=== PATIENT | female | born 1995 | race Caucasian/White ===

== ENCOUNTER → 2020-09-10 13:13 | Outpatient (CLI) | payer OTHER, SELFPAY ==
--- NOTE | ~2020-09-10 | US_ITS ---
EXAMINATION: US OB <= 14 wk fetus add gest, US OB <=14 wk fetus w TV EXAM DATE: 09/10/2020 13:58 INDICATION: For dating. 1st trimester. TECHNIQUE: Pelvic twin obstetrical transabdominal sonogram was performed by a technologist. There a re multiple grayscale and Doppler images available for interpretation. Comparison is made to prior ex amination from 09/10/2020. FINDINGS: The uterus measures 8.2 x 4.8 x 6.6 cm. There are twin monochorionic gestations. There appe ar to be separate amniotic sacs. There is only one yolk sac identified measuring 6 mm in diameter. Fetus A on maternal right side with crown-rump length of 1.2 cm corresponding to estimated gestationa l age 7 weeks 2 days, YUMIKO 04/27/2021, and has a heart rate 159 bpm. Fetus B, on maternal left side has a crown-rump length of 1.4 cm corresponding to estimated gestational age 7 weeks 5 days with an YUMIKO of 04/24/2021, and a heart rate of 151 bpm. There is no subchorionic hemorrhage. Both ovaries were ro ntified and are morphologically normal. IMPRESSION: Twin live monochorionic and probably diamniotic gestations. Reviewed, dictated and finalized at location A. IMPRESSION: Twin live monochorionic and probably diamniotic gestations.
== END ==
PROVIDERS: Visit Provider Obstetrics & Gynecology
DX: O30.039 Twin pregnancy, monochorionic/diamniotic, unspecified trimester (principal); Z3A.00 Weeks of gestation of pregnancy not specified
CPT/HCPCS: 76801; 76802; 76817

== ENCOUNTER 2021-02-15 12:29 | Observation (INO) | payer OTHER, SELFPAY ==
--- NOTE | ~2021-02-15 | US_ITS ---
EXAMINATION: US venous doppler [facility] DATE: 02/15/2021 13:37 INDICATION: Right lower limb pain and swelling TECHNIQUE: Grayscale ultrasound images without and with compression and Doppler ultrasound images of the bilateral lower extremity veins were obtained. COMPARISON: None. FINDINGS: The visualized portions of right common femoral vein, profunda (deep) femoral vein, femoral vein, pop liteal vein, posterior tibial veins, peroneal veins, gastrocnemius vein and greater saphenous vein ou tflow are patent. The visualized portions of left common femoral vein, profunda femoral vein, femoral vein, popliteal v ein, posterior tibial veins, peroneal veins, gastrocnemius vein and greater saphenous vein outflow ar e patent. IMPRESSION: 1. No deep venous thrombosis in either lower limb. Reviewed, dictated and finalized at location A.
--- NOTE | 2021-02-15 12:50 | PC.NURSE ---
Left calf measurement 16 5/8 inches; Left ankle 9 3/4 inches Right calf measurement 17 1/4 inches; Right ankle 10 inches.
[2021-02-15 12:55] VITALS: RESP 16; TEMP 36.6
[2021-02-15 12:56] VITALS: BP 119/69; PULSE 95
[2021-02-15 13:00] VITALS: BP 123/69; PULSE 90
[2021-02-15 13:08] VITALS: BMI 40.5
--- NOTE | 2021-02-15 13:08 | OBADM ---
This patient, Angy Britt, admitted to the OB room 116 for observation for c/o right leg swelling. Dr. Gandara was on unit when pt arrived and orders received. Patient/family oriented to hospital policies and general routines including ID bracelet, bed and alarms, visiting hours, pain management, procedures, bathroom and other care routines, personal items, smoking policy, room service/diet, and visiting hours. Patient/Family are encouraged to report perceived risks to care and to ask questions if they do not understand what they are told or what they should do.
--- NOTE | 2021-02-15 13:55 | PC.NURSE ---
Dr. Gandara informed pt had increased edema in her legs while she was at work this morning after standing for 2 - 2 1/2 hrs. Pt sat down for 3 hours but didn't feel like the swelling was any less. Pt states it was worse in her right leg. No edema present on admission and pt states her legs look much better now. informed doppler studies are negative for DVT. Both twins are reactive on NST. Orders for discharge received.
--- NOTE | 2021-03-08 19:25 | PM.OBTRLD ---
OB - Triage/Final Diagnosis Visit Information Comments/Additional reasons for admission: I have assessed the risk for this patient, Angy Britt, and determined that she would benefit from observation care. Final Diagnosis (1) Lower extremity edema: Code(s): R60.0 - Localized edema Status: Acute
== END 2021-02-15 14:21 | disposition home or self-care (01) ==
PROVIDERS: Admitting Provider Obstetrics & Gynecology; Visit Provider Obstetrics & Gynecology
DX: O26.893 Other specified pregnancy related conditions, third trimester (principal); R60.0 Localized edema; Z3A.30 30 weeks gestation of pregnancy
CPT/HCPCS: 93970; G0378; G0379

== ENCOUNTER 2021-02-26 11:10 | Outpatient (CLI) | payer OTHER, SELFPAY ==
[2021-02-26 11:40] VITALS: BP 121/72; PULSE 84
[2021-02-26 11:46] VITALS: BP 118/66; PULSE 89
[2021-02-26 12:01] VITALS: BP 111/69; PULSE 83
--- NOTE | 2021-02-26 12:11 | PC.NURSE ---
Dr. Gandara informed of this twin gestation with GDM pt's arrival with c/o headache x's 2 days- non-relieved with Fioricet. Pt checked her BP at home and it was 150's/90. Informed BP's here are normal. Order received to obtain baseline labs.
[2021-02-26 12:16] VITALS: BP 114/69; PULSE 93
[2021-02-26 12:24] VITALS: BP 114/69; PULSE 93
[2021-02-26 12:47] LABS: Basophils Absolute Auto 0.1 K/mm3 (0.0-0.1); Basophils Percent Auto 0.5 % (0.2-1.2); Eosinophils Absolute Auto 0.4 K/mm3 (0-0.3); Eosinophils Percent Auto 3.7 % (0-4.4); Hemoglobin 11.7 g/dL (12.0-15.0); Immature Granulocyte Absolute 0.06 K/mm3 (0.00-0.031); Immature Granulocyte Percent A 0.6 % (0-0.5); Lymphocytes Absolute Auto 1.32 K/mm3 (0.9-3.2); Lymphocytes Percent Auto 12.5 % (18.3-44.2); Mean Corpuscular HGB Conc 33.4 g/dl (32-36); Mean Corpuscular Hemoglobin 32.3 pg (26-34); Mean Corpuscular Volume 96.7 fl (80-100); Mean Platelet Volume 11.2 fl (7.4-10.4); Monocytes Percent Auto 9.4 % (2.6-8.5); Neutrophils Absolute Auto 7.7 K/mm3 (1.3-6.7); Neutrophils Percent Auto 73.3 % (45.5-73.1); Platelet Count Result 208 k/mm3 (150-375); Red Blood Count 3.62 M/mm3 (4.2-5.4); Red Cell Distribution Width 13.5 % (11.5-14.5); White Blood Count 10.5 K/mm3 (4.5-10.0)
[2021-02-26 12:58] LABS: Alanine Aminotransferase 16 U/L (4-35); Albumin Level 3.4 g/dL (3.5-5.1); Alkaline Phosphatase 84 U/L (38-126); Anion Gap 3 mmol/L (8-16); Aspartate Amino Transferase 22 U/L (14-36); Bilirubin,Total 0.2 mg/dL (0.2-1.3); Blood Urea Nitrogen 11 mg/dL (7-17); Calcium 9.6 mg/dL (8.4-10.2); Carbon Dioxide 23 mmol/L (22-30); Chloride 106 mmol/L (98-107); Estimated Glomerular Filt Rate > 60; Glucose 86 mg/dL (65-110); Sodium 132 mmol/L (137-145); Uric Acid 3.5 mg/dL (2.5-7.5)
[2021-02-26 13:01] LABS: Creatinine Urine 26.7 mg/dL; Total Protein Urine Random 13 mg/dL; Ur Ttl Prot Creatinine Ratio 0.49 mg/mg (0-0.20)
[2021-02-26 13:02] LABS: Add Urine Microscopic? YES; Appearance Urine Clear (Clear); Bacteria Urine Trace /hpf; Bilirubin Urine Negative (Negative); Blood Urine Negative (Negative); Color Urine Straw (Yellow); Glucose Urine UA Negative (Negative); Ketones Urine Negative (Negative); Leukocyte Esterase Ur 3+ LEU/UL (Negative); Mucus Urine Rare /lpf; Nitrate Urine Negative (Negative); Protein Urine Negative (Negative); RBC Urine 0-2 /hpf (0-2); Specific Grav Ur 1.009 (1.001-1.035); Squamous Epithelial Cell Urine Occasional /hpf (Few); Urobilinogen Urine Negative mg/dL (<2.0)
--- NOTE | 2021-02-26 13:41 | PC.NURSE ---
Dr. Gandara informed of lab results including total protein/creatinine ratio by Jeni Omalley RN. Order received for discharge and for pt to collect 24 hr urine at home.
== END 2021-02-26 14:08 | disposition home or self-care (01) ==
LOC: ANHOBOP 11:14 → ANHOBPP 11:15
PROVIDERS: Obstetrics & Gynecology; PCP Family Medicine; Visit Provider Obstetrics & Gynecology
DX: O16.3 Unspecified maternal hypertension, third trimester (principal); Z3A.31 31 weeks gestation of pregnancy
CPT/HCPCS: 36415; 59025; 80053; 81001; 82570; 84156; 84550; 85025; 99199

== ENCOUNTER 2021-02-27 14:50 | Outpatient (NON) | payer OTHER, SELFPAY ==
[2021-02-27 15:45] VITALS: BMI 40.4
[2021-02-27 16:43] LABS: Collection Time Urine 24 HOURS
[2021-02-27 16:44] LABS: Total Volume 24 Hour Urine 3200 ml
[2021-02-27 16:46] LABS: Patient Weight 266 Lbs
[2021-02-27 17:00] LABS: Creatinine Clearance Urine 243.7 ml/min (75-125); Creatinine Urine 58.3 mg/dL; Total Protein Urine 24 Hr 192 mg/24hr (28-141)
[2021-02-27 17:07] LABS: Specific Gravity Ur 1.016; Total Protein Urine Random 6 mg/dL
== END 2021-02-27 14:51 | disposition home or self-care (01) ==
LOC: ANHOBOP 14:53
PROVIDERS: PCP Family Medicine; Visit Provider Obstetrics & Gynecology
DX: R03.0 Elevated blood-pressure reading, without diagnosis of hypertension (principal)
CPT/HCPCS: 81050; 82575; 84156

== ENCOUNTER 2021-03-05 18:50 | Observation (INO) | payer OTHER, SELFPAY ==
[2021-03-05 19:13] VITALS: BP 127/77; PULSE 95
[2021-03-05 19:18] VITALS: BP 141/90; PULSE 96
[2021-03-05 19:46] VITALS: BP 133/75; PULSE 94
[2021-03-05 19:59] LABS: Add Urine Microscopic? YES; Appearance Urine Clear (Clear); Bacteria Urine Trace /hpf; Bilirubin Urine Negative (Negative); Blood Urine Negative (Negative); Color Urine Yellow (Yellow); Glucose Urine UA Negative (Negative); Ketones Urine 1+ mg/dL (Negative); Leukocyte Esterase Ur 1+ LEU/UL (NEGATIVE); Mucus Urine Rare /lpf; Nitrate Urine Negative (Negative); Protein Urine Negative (Negative); RBC Urine 0-2 /hpf (0-2); Specific Grav Ur 1.018 (1.001-1.035); Squamous Epithelial Cell Urine Few /hpf (Few); Urobilinogen Urine Negative mg/dL (<2.0); WBC Urine 0-3 /hpf (0-3)
[2021-03-05 20:01] VITALS: BP 125/71; PULSE 90
--- NOTE | 2021-03-05 21:46 | OBADM ---
This patient, Angy Britt, admitted to the OB room OB Post 117 for observation. Patient/family oriented to hospital policies and general routines including ID bracelet, bed and alarms, visiting hours, pain management, procedures, bathroom and other care routines, personal items, smoking policy, room service/diet, and visiting hours. Patient/Family are encouraged to report perceived risks to care and to ask questions if they do not understand what they are told or what they should do.
--- NOTE | 2021-03-28 18:29 | P.PNOB_ITS ---
OB - Triage/Final Diagnosis Visit Information Comments/Additional reasons for admission: I have assessed the risk for this patient, Angy Britt, and determined that she would benefit from observation care. Evaluation Laboratory results: Laboratory Tests 03/05/21 19:44 Urine Color Yellow Urine Appearance Clear Urine pH 6.[address] [place] 1.018 Urine Protein Negative Urine Glucose (UA) Negative Urine Ketones 1+ H Ur Blood (Man) Negative Urine Nitrate Negative Urine Bilirubin Negative Urine Urobilinogen Negative Ur Leukocyte Esterase 1+ H Urine RBC 0-2 Urine WBC 0-3 Ur Squamous Epith Cells Few Urine Bacteria Trace Urine Mucus Rare Final Diagnosis (1) False labor: Code(s): O47.9 - False labor, unspecified Status: Acute
== END 2021-03-05 20:50 | disposition home or self-care (01) ==
PROVIDERS: Admitting Provider Obstetrics & Gynecology; PCP Family Medicine; Visit Provider Obstetrics & Gynecology
DX: O47.1 False labor at or after 37 completed weeks of gestation (principal); Z3A.37 37 weeks gestation of pregnancy
CPT/HCPCS: 81001; 87086; 87088; G0378; G0379

== ENCOUNTER 2021-04-04 09:59 | Outpatient (CLI) | payer OTHER, MEDICAID, SELFPAY ==
[2021-04-04 10:18] LABS: Hematocrit 38.7 % (37.0-47.0); Hemoglobin 12.9 g/dL (12.0-15.0); Mean Corpuscular HGB Conc 33.3 g/dl (32-36); Mean Corpuscular Hemoglobin 32.4 pg (26-34); Mean Corpuscular Volume 97.2 fl (80-100); Mean Platelet Volume 10.9 fl (7.4-10.4); Platelet Count Result 194 k/mm3 (150-375); Red Blood Count 3.98 M/mm3 (4.2-5.4); Red Cell Distribution Width 13.4 % (11.5-14.5); White Blood Count 10.7 K/mm3 (4.5-10.0)
[2021-04-04 10:58] LABS: Rapid Plasma Reagin Non-Reactive (NonReactive)
== END 2021-04-04 10:00 | disposition home or self-care (01) ==
LOC: ANHLAB 10:02
PROVIDERS: PCP Family Medicine; Visit Provider Obstetrics & Gynecology
DX: Z34.93 Encounter for supervision of normal pregnancy, unspecified, third trimester (principal); Z3A.00 Weeks of gestation of pregnancy not specified
CPT/HCPCS: 36415; 85027; 86592; 86850; 86900; 86901

== ENCOUNTER 2021-04-06 05:26 | Inpatient (IN) | payer OTHER, MEDICAID, SELFPAY ==
--- NOTE | 2021-03-27 16:04 | PC.NURSE ---
VERIFIED WITH OR SCHEDULE AND PATIENT --C/S ON 04/06/21 AT 0730 FOR TWINS PATIENT GIVEN REQUISITION FOR LAB DRAW ON 04/04/21 PATIENT AT TIME OF PRE-ADMIT , UNDECIDED ABOUT CIRCUMCISION FOR TWIN BOYS--
[2021-04-06] VITALS (50 sets, daily range): BP systolic 84–129; BP diastolic 30–84; PULSE 66–98; RESP 12–21; TEMP 36.3–36.9; O2SAT 91–100; BMI 43.9
--- NOTE | 2021-04-06 06:30 | LDADM ---
This patient, Angy Britt, was admitted to Labor/Delivery/Recovery 120 on 04/06/21 at 05:26. Plans for labor, pain management and were discussed with patient. Patient/family oriented to hospital policies and general routines including ID bracelet, bed and alarms, visiting hours, pain management, procedures, bathroom and other care routines, personal items, smoking policy, room service/diet and guest tray routines, infant security routines, and visiting hours. Patient/Family are encouraged to report perceived risks to care and to ask questions if they do not understand what they are told or what they should do. See OBIX for further documentation.
[2021-04-06 06:53] LABS: Glucose Point of Care 99 mg/dl (65-105)
--- NOTE | 2021-04-06 06:56 | PM.IMHP ---
H&P: HPI History of Present Illness Date/Time: 04/06/21 06:56 Chief Complaint: CS twins Narrative: Jenni is a 25yo at 37.2 with mono/di twins for primary CS, pt preference. complicated by cholestasis, GDMA2, and baby A with a hyperechoic area in LUQ, unknown etiology. Review of Systems Review of Systems: All systems reviewed & are unremarkable except as noted in HPI and below PMFSH Family History Family History (Updated 03/27/21 @ 15:45 by Jonny Echols RN) Mother Migraine Father Kidney stones Sibling Crohn disease Social History Social History Smoking status: Never smoker Substance use: current Last use: LAST TIME- JUL 2020 Spiritual care concerns: No Meds Home Medications and Allergies Home Medications Medication Instructions Recorded Confirmed Type PNV cmb#95-ferrous fumarate-FA 1 tablet PO DAILY 02/15/21 03/05/21 History [] aspirin 162 mg PO DAILY 02/15/21 03/05/21 History Humulin N NPH U-100 Insulin 34 unit SUBCUT HS 02/26/21 03/05/21 History Humulin N NPH U-100 Insulin 6 unit SUBCUT QACBREAK 03/05/21 03/05/21 History ursodiol 300 mg PO BID 03/27/21 03/27/21 History Allergies Allergy/AdvReac Type Severity Reaction Status Date / Time oseltamivir [From Tamiflu] Allergy Hives Verified 03/27/21 15:42 Vital Signs Vital Signs - 24 hr 04/06/21 06:23 04/06/21 06:31 Pulse Rate 88 89 Blood Pressure 126/82 128/80 Exam Const: General: no acute distress Resp: Effort & Inspection: normal respiratory effort Auscultation: clear to auscultation bilaterally Cardio: Rate: regular rate Rhythm: regular rhythm GI: GI Palp: Yes Soft to palpation Extrem: General: normal to inspection Assessment and Plan Additional Plan Plan primary CS Discussed RBA, pt consented, all questions answered. will proceed.
--- NOTE | 2021-04-06 06:58 | WPDHPUPDATE1 ---
History and Physical Update Update Date/Time: 04/06/21 06:58 History and Physical has been reviewed, including an updated exam of the patient. There are NO changes in the patient's condition. Risks, benefits, and alternatives have been discussed and questions answered. Patient agrees to proceed with procedure.
--- NOTE | 2021-04-06 07:30 | WPDANESEPPF ---
Anes - Initial Pre Proc Eval Procedure: Operation Date: 04/06/21 07:30 Proposed Procedures p Primary Section - Micaela Chacon MD Date/Time: 04/06/21 07:30 Surgeon: Micaela Chacon MD Pre Op Diagnosis: Primary section Patient Data Age: 25 Gender: F Height: 1.73 m Weight: 131 kg Last Vital Signs Pulse 83 04/06/21 07:16 BP 126/84 04/06/21 07:16 Allergies Allergy/AdvReac Type Severity Reaction Status Date / Time oseltamivir [From Tamiflu] Allergy Hives Verified 03/27/21 15:42 Home Medications Medication Instructions Recorded Confirmed Type PNV cmb#95-ferrous fumarate-FA 1 tablet PO DAILY 02/15/21 04/06/21 History [] aspirin 162 mg PO DAILY 02/15/21 04/06/21 History Humulin N NPH U-100 Insulin 18 unit SUBCUT HS 02/26/21 04/06/21 History Humulin N NPH U-100 Insulin 6 unit SUBCUT QACBREAK 03/05/21 04/06/21 History ursodiol 300 mg PO BID 03/27/21 03/27/21 History Laboratory Tests 04/06/21 06:48 POC Capillary Glucose 99 mg/dl mg/dl (65-105) Patient hx anesthesia problems: none Family hx anesthesia problems: none Results Review: All pre-operative results and documents have been reviewed as part of the pre-operative evaluation. [facility] Past Medical History Medical History (Updated 04/06/21 @ 07:30 by Hima Bartholomew DO) GDM (gestational diabetes mellitus) Family History Family History (Updated 03/27/21 @ 15:45 by Jonny Echols RN) Mother Migraine Father Kidney stones Sibling Crohn disease Social History Social History Smoking status: Never smoker Substance use: current Last use: LAST TIME- JUL 2020 Spiritual care concerns: No Anes - Eval Final PreProcedure Day of Procedure 04/06/21 07:30 Patient weight: morbidly obese Heart: regular rate and rhythm Lungs: clear to auscultation and normal air movement Airway: Mallampati scale class II Neurological: alert and oriented Last oral intake: >/= 8 hours ASA classification: III Emergent: no Anesthetic plan: proceed Anesthesia type and monitoring: regional spinal and standard monitoring Results Review: All pre-operative results and documents have been reviewed as part of the pre-operative evaluation. Informed Consent: The patient's anesthetic plan and its attendant risks and benefits were discussed with the patient/family/POA. Questions were solicited and answers provided to the satisfaction of the patient/family/POA.
[2021-04-06] MEDS: LACTATED RINGERS 250 ML 999 ML IVPB (07:33)
[2021-04-06] MEDS: LACTATED RINGERS 1,000 ML 125 ML IV CONT (08:22)
[2021-04-06] MEDS: KETOROLAC 30 MG/ML VIAL (*BKC) IV PUSH ×2 (09:29→16:09)
--- NOTE | 2021-04-06 09:38 | P.PCNOB_ITS ---
OB - Delivery Note Procedure Delivery date: 04/06/21 Procedure: Procedures Operation Date: 04/06/21 07:30 <No data on this case meets the specified criteria> Primary Low Transverse Section Intrapartal events: Multiple Gestation Route of delivery: Specimen: Yes (placenta) Quantitative Blood Loss (ml): 845 Anesthesia type: Spinal Disposition: floor Complications: none Narrative: The patient was taken to the OR and had her epidural anesthesia dosed adequately. She was placed in dorsal supine position with left lateral tilt. SCDs and carreon had been placed. She was prepped and draped in the normal sterile fashion. A Pfannensteil skin incision was made and carried through to the underlying layer of fascia. The fascia was incised in the midline and then extended laterally using Wooten scissors. The muscles were in the midline and the peritoneum was entered bluntly. The peritoneal incision was extended inferiorly and superiorly with care to avoid the bladder. The bladder blade was then inserted, the vesicouterine peritoneum was grasped, incised with Metzenbaum scissors, and a bladder flap created. The bladder blade was reinserted. A low transverse uterine incision was made with a scalpel and extended bluntly. AROM of Baby A was performed and fluid was noted to be clear. The head was delivered, followed by the remainder of the baby. The baby's oropharynx was suctioned. After 30 seconds, the cord was clamped and cut and the infant was handed off. Likewise, amniotomy was performed on Baby B, who was also vertex. The head was easily delivered, followed by the remainder of the baby. Cord blood was obtained and the placenta was then removed manually. The uterus was exteriorized. A moist lap sponge was used to curette the endometrium. The uterine incision was then closed with two layers of 0-Vicryl in a running, nonlocking fashion. Good hemostasis was noted. The posterior cul de sac was irrigated with normal saline and cleared of all clot and debris. The uterus was returned to the abdomen. Both lateral gutters were then irrigated. The rectus muscles were inspected and found to be hemostatic. The fascia was reapproximated using 0-Vicryl in running fashion. The subcutaneous tissue was irrigated with normal saline and made hemostatic with Bovie electrocautery. The subcutaneous tissue was reapproximated with a layer of running 2-0 plain gut. The skin was then closed with absorbable domenic. Steri strips and a bandage were applied. The uterus was evacuated. The patient tolerated the procedure very well. All counts were correct. She was taken to the recovery room in good condition. [place] Baby Weeks of gestation at delivery: 37 Twins A: Date of : 04/06/21 Time of : 09:02 Weeks of gestation at delivery: 37 Infant gender: Male Weight (pounds): 6 Weight (ounces): 2 presentation: vertex cord vessel description: Delayed Cord Clamping score one minute: 8 score five minutes: 9 B: Date of : 04/06/21 Time of : 09:03 Weeks of gestation at delivery: 37 gender: Male Weight (pounds): 6 Weight (ounces): 2 presentation: vertex cord vessel description: Delayed Cord Clamping score one minute: 9 score five minutes: 9
[2021-04-06] MEDS: OXYTOCIN 30 UNITS/NS 500 ML 30 UNITS/500 ML BAG 125 UNITS IV CONT (11:16)
[2021-04-06 11:56] LABS: Barbiturate Screen Urine Negative (Negative); Benzodiazepines Screen Urine Negative (Negative)
[2021-04-06 12:06] LABS: Amphetamine Screen Urine Negative (Negative); Cannabinoid Screen Urine Negative (Negative); Methadone Screen Urine Negative (Negative); Opiate Screen Urine Negative (Negative); Phencyclidine Screen Urine Negative (Negative)
--- NOTE | 2021-04-06 13:05 | PC.NURSE ---
Patient transferred to post room #277 via [id number]. Support person present. Oriented to unit, room, information board, rooming in, admission packet and security measures. Patient verbalizes understanding.
[2021-04-06] MEDS: DEXTROSE 5%/0.45% SOD CHL 1,000 ML 125 ML IV CONT (16:09)
[2021-04-06 21:50] LABS: Cocaine Screen Urine Negative (Negative)
[2021-04-07 04:30] VITALS: BP 107/61; PULSE 75; RESP 18; TEMP 36.3; O2SAT 100
[2021-04-07 05:37] LABS: Basophils Absolute Auto 0.1 K/mm3 (0.0-0.1); Basophils Percent Auto 0.5 % (0.2-1.2); Eosinophils Absolute Auto 0.3 K/mm3 (0-0.3); Eosinophils Percent Auto 3.1 % (0-4.4); Hematocrit 30.2 % (37.0-47.0); Hemoglobin 9.9 g/dL (12.0-15.0); Immature Granulocyte Absolute 0.07 K/mm3 (0.00-0.031); Immature Granulocyte Percent A 0.7 % (0-0.5); Lymphocytes Absolute Auto 1.59 K/mm3 (0.9-3.2); Lymphocytes Percent Auto 15.2 % (18.3-44.2); Mean Corpuscular HGB Conc 32.8 g/dl (32-36); Mean Corpuscular Hemoglobin 32.7 pg (26-34); Mean Corpuscular Volume 99.7 fl (80-100); Mean Platelet Volume 11.2 fl (7.4-10.4); Monocytes Absolute Auto 0.9 K/mm3 (0.1-0.6); Neutrophils Absolute Auto 7.5 K/mm3 (1.3-6.7); Neutrophils Percent Auto 71.5 % (45.5-73.1); Platelet Count Result 165 k/mm3 (150-375); Red Blood Count 3.03 M/mm3 (4.2-5.4); Red Cell Distribution Width 13.3 % (11.5-14.5); White Blood Count 10.5 K/mm3 (4.5-10.0)
[2021-04-07] MEDS: DOCUSATE SODIUM 100 MG CAPSULE PO ×2 (07:02→15:09)
[2021-04-07] MEDS: HYDROcodone/acetaminophen (*CRX) 5-325 MG TABLET 1 TAB PO (07:02)
[2021-04-07] MEDS: MULTIVIT/MIN/PREN/FOL AC/IRON TABLET 1 TAB PO (07:02)
[2021-04-07] MEDS: POLYSACCHARIDE IRON COMPLEX 150 MG CAPSULE PO ×2 (07:02→15:08)
[2021-04-07] MEDS: IBUPROFEN 600 MG TABLET PO ×3 (07:03→20:41)
--- NOTE | 2021-04-07 07:45 | P.PNOB_ITS ---
OB - PN: Subj Subjective Date/time seen: 04/07/21 07:45 Patient comments: no complaints and pain well controlled baby status: doing well [place] feeding status: breast and bottle feeding Narrative: Doing very well. Pain minimal. E/A/V. Normal lochia. 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 OB - PN: Obj Data Labs CBC & Chem 7: 04/07/21 04:20 Labs: Laboratory Results - last 24 hr 04/06/21 04/07/21 10:56 04:20 WBC 10.5 H RBC 3.03 L Hgb 9.9 L D Hct 30.2 L MCV 99.7 MCH 32.7 MCHC 32.8 RDW 13.3 Plt Count 165 MPV 11.2 H Immature Gran % (Auto) 0.7 H Neut % (Auto) 71.5 Lymph % (Auto) 15.2 L [place] % (Auto) 9.0 H Eos % (Auto) 3.1 Baso % (Auto) 0.5 Lymph # (Auto) 1.59 [place] # (Auto) 0.9 H Eos # (Auto) 0.3 Baso # (Auto) 0.1 Abs Immat Gran (auto) 0.07 H Absolute Neuts (auto) 7.5 H Absolute Nucleated RBC 0.0 Nucleated RBC % 0.0 Urine Opiates Screen Negative Urine Methadone Screen Negative Ur Barbiturates Screen Negative Ur Phencyclidine Scrn Negative Ur Amphetamine Screen Negative U Benzodiazepines Scrn Negative Urine Cocaine Screen Negative U Cannabinoids Screen Negative OB - PN A/P Plan day: 1 Plan: routine care Comments: routine post op care. Time Spent With Patient Time: Total time spent is greater than 50% in coordination of care (as documented) at patient's floor/unit and/or counseling patient: Time with patient: less than 15 minutes Exam Narrative: NAD abdomen soft, nontender, fundus firm below the umbilicus incision bandaged with no strikethrough Extremities nontender, 1+ edema
[2021-04-07 07:50] VITALS: BP 109/62; PULSE 80; RESP 18; TEMP 37.2; O2SAT 100
--- NOTE | 2021-04-07 09:41 | WPDANLDPN2 ---
Anes-Prog Note L&D Date/Time: 04/07/21 09:41 Comfortable throughout: section Neuraxial method: spinal Epidural/Spinal procedure site: clean & non-tender Neuro status: Neuro function grossly intact. Cardiovascular status: normal Respiratory status: normal Airway patency: baseline Mental status: baseline Post-Op hydration status: normal Vital Signs: Last Vital Signs Temp 37.2 C 04/07/21 07:50 Pulse 80 04/07/21 07:50 Resp 18 04/07/21 07:50 BP 109/62 04/07/21 07:50 Pulse Ox 100 04/07/21 07:50 Pain score (VAS): 06/29 I/O: Intake & Output 04/06/21 04/07/21 04/07/21 23:59 07:59 15:59 Intake Total 920 700 Output Total 800 1350 Balance 120 -650 Post-procedural complaints: none Patient feedback: Patient satisfied with anesthetic care.
--- NOTE | 2021-04-07 09:41 | WPDANLDNPN2 ---
Anes-Prog Note L&D-Neuraxial Date/Time: 04/07/21 09:41 Neuraxial medications: intrathecal PF morphine Opiod-related complaints: none Patient feedback: Patient satisfied with post-operative pain management.
[2021-04-07] MEDS: HYDROcodone/acetaminophen (*CRX) 10-325 MG TABLET 1 TAB PO ×3 (10:44→20:41)
--- NOTE | 2021-04-07 11:05 | PC.NURSE ---
Consult with pt., mother reports has been sleepy and difficult to latch. Mother has been given a nipple shield to assist with deep latch. Mother reports one twin has been transferred to [facility] and may return tomorrow. Discussed establishing in the late infant may be more difficult due to their immaturity, infant may be less alert, have less stamina, and have greater difficulty with latch, suck, and swallow. ?s feeding may impact mother?s milk supply, pumping may need to be initiated /continued until milk supply is well established and infant is able to effective without supplementation. Requested mother call out next feeding for assist.
--- NOTE | 2021-04-07 15:20 | PC.NURSE ---
Mother called out for assist with feeding. Mother reports infant is sleepy and makes eager attempts to latch with a few good bursts of nursing, he will then pause and release latch. Mother is supplementing after each feeding followed with 15 minutes of pumping. Discussed establishing in the late may be more difficult due to their immaturity, infant may be less alert, have less stamina, and have greater difficulty with latch, suck, and swallow. Infant?s feeding may impact mother?s milk supply, pumping may need to be initiated /continued until milk supply is well established and infant is able to effective without supplementation. Infant is able to freely thrust tongue past gum ridge and flange both lips frenulum is visible . Skin is intact on both nipples, slight redness from pumping with incorrect draw. Nipple care reviewed of lanolin after feedings, warm compresses as needed. Assisted mother with her pump and correct flange size and draw. Reviewed infant feeding cues, frequencies, duration of feedings, feeding elimination flow sheet, and signs of adequate intake. Demonstrated stimulation techniques to wake infant for feeding. Assisted with infant to breast. Reviewed positioning/alignment in cross cradle, holding breast in ?U? hold and guided asymmetrical latch on. Reviewed rational for each. was able to latch correctly. nursed eagerly for good bursts with long pausing. was easily stimulated into a good suckling pattern. Suggested mother stimulate while feeding to increase stimulation, increase intake and to assist with maintaining deep latch. Demonstrated how to adjust latch more deeply while feeding if needed. Reviewed signs of a correct latch, effective nursing and suck swallow ratio. Mother reports infant is feeding more consistently than previous feedings, long pausing noted and several on and off during feeding. Discussed nipple shield use and how shield may assist with latch. Reviewed nipple shield precautions and possible complications. Instructions given on application and cleaning of shield. Patient able to return demonstration on proper application of shield. Advised mother to use shield if she is unable to get to latch without. Discussed the difference of effective vs ineffective feeding. Reviewed infant is latching with good burst of suckling, he is not feeding consistently with adequate milk transfer at this time and continues to need to be supplement after . Feeding options discussed, Feeding Plan is for mother to put infant to breast each feeding for up to 15 minutes, then pace feed supplement 20 mls and pump for 10-15 minutes. Mother iscomfortable with supplementation and pumping. If begins to nurse effectively with long draws and frequent swallowing noted, infant may decrease supplementation and discontinue pumping. Suggested mother have LC store receiver observe feeding before discontinuing supplementation. Discussed increasing supplementation as infant requires to satisfactions. Reviewed paced feeding and suggested to stop when is satisfied, as long as is having required output. With increased supplementation may not want to feed for 4 hours. Mother will continue to pump on feeding schedule and will increase session to 20 minutes if pumping every 4 hours. Instructed mother to call out for RN assistance if she is unable to latch infant for feeding or she has discomfort with nursing. Instructed feeding should be initiated three hours from start of last feeding or if feeding cues are noted before. Mother voiced understanding of information shared.
[2021-04-07 20:21] VITALS: BP 102/60; PULSE 88; RESP 18; TEMP 36.8; O2SAT 100
[2021-04-08] MEDS: IBUPROFEN 600 MG TABLET PO ×3 (04:55→21:41)
[2021-04-08] MEDS: HYDROcodone/acetaminophen (*CRX) 10-325 MG TABLET 1 TAB PO ×4 (04:55→21:40)
[2021-04-08 07:25] VITALS: BP 104/64; PULSE 79; RESP 16; TEMP 36.9; O2SAT 100
--- NOTE | 2021-04-08 07:41 | PM.OBPNVD ---
OB - PN: Subj Subjective Date/time seen: 04/08/21 07:41 Patient comments: no complaints and pain well controlled baby status: doing well [place] feeding status: breast and bottle feeding Narrative: Mendel still at [facility] because wasn't urinating, needed carreon. Should be DCed today, she desires pass to go get him. She wants to stay until Tuesday because she won't have both twins together here until later today. She has gas pain. OB - PN: Obj Data Labs CBC & Chem 7: 04/07/21 04:20 OB - PN A/P Plan day: 2 Plan: routine care Comments: May have pass for 4 hours when Mendel DCed from [facility]. otherwise routine post op care. simethicone for gas pain, ambulate. Time Spent With Patient Time: Total time spent is greater than 50% in coordination of care (as documented) at patient's floor/unit and/or counseling patient: Exam Narrative: NAD abdomen soft, appropriately tender, incision CDI Extremities nontender with 1+ edema
[2021-04-08] MEDS: MULTIVIT/MIN/PREN/FOL AC/IRON TABLET 1 TAB PO (09:22)
[2021-04-08] MEDS: POLYSACCHARIDE IRON COMPLEX 150 MG CAPSULE PO ×2 (09:22→15:52)
[2021-04-08] MEDS: DOCUSATE SODIUM 100 MG CAPSULE PO ×2 (09:22→15:52)
[2021-04-08] MEDS: SIMETHICONE 80 MG TAB.CHEW PO ×2 (09:23→15:52)
[2021-04-08 19:41] VITALS: BP 124/71; PULSE 86; RESP 18; TEMP 36.5; O2SAT 100
[2021-04-09] MEDS: HYDROcodone/acetaminophen (*CRX) 10-325 MG TABLET 1 TAB PO ×3 (02:56→21:56)
--- NOTE | 2021-04-09 07:47 | PM.OBPNVD ---
OB - PN: Subj Subjective Date/time seen: 04/09/21 07:47 Patient comments: no complaints, pain well controlled, tolerating diet and flatus present [place] baby status: doing well OB - PN: Obj Data Labs CBC & Chem 7: 04/07/21 04:20 OB - PN A/P Plan day: 3 Plan: routine care Comments: Pt to stay as infant will be transferred back. Time Spent With Patient Time: Total time spent is greater than 50% in coordination of care (as documented) at patient's floor/unit and/or counseling patient: Time with patient: less than 15 minutes Review of Systems Review of Systems: All systems reviewed & are unremarkable except as noted in HPI and below Exam Narrative: Fundus firm. Vaginal flow controlled. Incision dry and intact. Negative homans. No redness, warmth, or pain of lower ext. Const: General: comfortable Chest: Breast/axilla inspection: normal inspection of the breasts Resp: Effort & Inspection: normal respiratory effort Auscultation: clear to auscultation bilaterally Cardio: Rate: regular rate GI: GI Palp: Yes Soft to palpation Psych: Appearance: grossly normal Affect: normal affect Attitude: cooperative Thought content: Yes Normal thought content present Judgement: Good judgement present (Psych)
[2021-04-09] MEDS: IBUPROFEN 600 MG TABLET PO ×3 (07:52→20:50)
[2021-04-09] MEDS: DOCUSATE SODIUM 100 MG CAPSULE PO ×2 (07:53→17:00)
[2021-04-09] MEDS: MULTIVIT/MIN/PREN/FOL AC/IRON TABLET 1 TAB PO (07:53)
[2021-04-09] MEDS: POLYSACCHARIDE IRON COMPLEX 150 MG CAPSULE PO ×2 (07:53→17:00)
[2021-04-09 08:45] VITALS: BP 108/57; PULSE 77; RESP 18; TEMP 36.5; O2SAT 99
[2021-04-09] MEDS: HYDROcodone/acetaminophen (*CRX) 5-325 MG TABLET 1 TAB PO ×2 (13:57→18:55)
[2021-04-09 19:45] VITALS: BP 112/73; PULSE 85; RESP 16; TEMP 36.6; O2SAT 99
[2021-04-10] MEDS: HYDROcodone/acetaminophen (*CRX) 10-325 MG TABLET 1 TAB PO ×2 (02:00→16:03)
[2021-04-10] MEDS: HYDROcodone/acetaminophen (*CRX) 5-325 MG TABLET 1 TAB PO ×2 (05:45→10:52)
[2021-04-10] MEDS: IBUPROFEN 600 MG TABLET PO ×2 (05:45→16:03)
[2021-04-10 07:35] VITALS: BP 118/64; PULSE 80; RESP 16; TEMP 36.6; O2SAT 100
--- NOTE | 2021-04-10 07:55 | PM.OBPNVD ---
OB - PN: Subj Subjective Date/time seen: 04/10/21 07:55 Patient comments: no complaints, incisional pain, tolerating diet and flatus present feeding status: breast and bottle feeding Narrative: E/A/VSonya Oglesby still at [facility], hopefully DC tomorrow. OB - PN: Obj Data Labs CBC & Chem 7: 04/07/21 04:20 OB - PN A/P Plan day: 4 Plan: routine care and discharge home Comments: DC instructions given FU Tuesday incision check Time Spent With Patient Time: Total time spent is greater than 50% in coordination of care (as documented) at patient's floor/unit and/or counseling patient: Exam Narrative: NAD abdomen soft, appropriately tender, incision CDI Extremities nontender with 2+ edema
--- NOTE | 2021-04-10 08:02 | PM.OBDSVD ---
DS: Admitting Diagnosis Discharge Date 04/10/21 Admitting Diagnosis mono/di twins 37w DS: Discharge Diagnosis Discharge Diagnosis (1) delivery delivered: Code(s): O82 - Encounter for delivery without indication Status: Acute (2) Twin delivered: Code(s): O30.009 - Twin , unspecified number of placenta and unspecified number of amniotic sacs, unspecified trimester Status: Acute OB - DS: Summary Hospital Course Hospital Course: Jenni had an uncomplicated CS at 37 weeks for her mono/di twins. Her course was also uncomplicated. She was DCed home on day #4. OB Procedures : NST and Ultrasound OB Procedures Intrapartum: OB Procedures: : None Peripartum Data Delivery Method: Section Procedures: Procedures Operation Date: 04/06/21 07:30 Actual Procedure Side Surgeon p Primary Section Not Applicable Micaela Chacon MD complications: none Status at Discharge Functional status at discharge: independent ambulation Time Spent with Patient Time attestation: Total time spent providing and/or coordinating discharge services: Exam Narrative: NAD abdomen soft, appropriately tender, incision CDI Discharge Plan Discharge Attending physician on discharge: Micaela Chacon Discharging Clinician: Micaela Chacon Anticipated Discharge Date/Time: 04/10/21 14:00 Patient Disposition: Home, Self-Care Activity: may shower, may drive after 2 weeks and pelvic rest Diet: as tolerated Patient Instructions: Antibiotic Form Stand Alone Forms: General Discharge Information Follow-up/Referrals: Micaela Chacon MD [Physician] - 1 Week Discharge Medications: New hydrocodone-acetaminophen 5-325 mg Tablet 1 tablet PO Q4-5H PRN (Reason: Moderate Pain (4-6)) Qty: 30 RF: 0 ibuprofen 600 mg Tablet 600 mg PO Q6H PRN (Reason: Cramping) Qty: 60 RF: 0 docusate sodium 100 mg Capsule 100 mg PO BID PRN (Reason: Constipation) Qty: 60 RF: 0 Continued PNV cmb#95-ferrous fumarate-FA [] 28 mg iron- 800 mcg Tablet 1 tablet PO DAILY RF: 0 Discontinued aspirin 81 mg Tablet 162 mg PO DAILY RF: 0 Humulin N NPH U-100 Insulin 100 unit/mL suspension 18 unit SUBCUT HS RF: 0 Humulin N NPH U-100 Insulin 100 unit/mL suspension 6 unit SUBCUT QACBREAK RF: 0 ursodiol 300 mg Capsule 300 mg PO BID RF: 0 Date of admission: 04/06/21 05:26 Primary Care Provider: Afua,Danny Mcclelland Admitting Provider: Micaela Chacon Attending physician on admission: Micaela Chacon Condition: Stable
[2021-04-10 08:30] VITALS: PULSE 80; RESP 16; O2SAT 100
[2021-04-10] MEDS: POLYSACCHARIDE IRON COMPLEX 150 MG CAPSULE PO (09:02)
[2021-04-10] MEDS: MULTIVIT/MIN/PREN/FOL AC/IRON TABLET 1 TAB PO (09:02)
[2021-04-10] MEDS: DOCUSATE SODIUM 100 MG CAPSULE PO (09:02)
== END 2021-04-10 16:57 | disposition home or self-care (01) | DRG 786 ==
LOC: ANHLDR 05:32 → ANHOB2 13:11
PROVIDERS: Admitting Provider Obstetrics & Gynecology; PCP Family Medicine; Visit Provider Obstetrics & Gynecology
PROC: 10D00Z1 Extraction of Products of Conception, Low, Open Approach (ICD-10-PCS; CPT 59514; principal; 2021-04-06 07:30)
DX: O30.033 Twin pregnancy, monochorionic/diamniotic, third trimester (principal); O26.62 Liver and biliary tract disorders in childbirth; K83.1 Obstruction of bile duct; O24.429 Gestational diabetes mellitus in childbirth, unspecified control; Z3A.37 37 weeks gestation of pregnancy; Z37.2 Twins, both liveborn
CPT/HCPCS: 36415; 80307; 82948; 85025; 85027; 86592; 86850; 86900; 86901; 88307; A9270; J0131; J1885; J2274; J2405; J2590; J7120

== ENCOUNTER 2021-04-25 14:12 | Outpatient (CLI) | payer OTHER, MEDICAID, SELFPAY ==
[2021-04-25 14:20] VITALS: BP 133/79; PULSE 71; RESP 14; TEMP 36.7
--- NOTE | 2021-04-25 15:00 | PC.NURSE ---
Dr. Gandara at bedside. See note
--- NOTE | 2021-04-25 15:10 | PM.IMHP ---
H&P: HPI History of Present Illness Date/Time: 04/25/21 15:10This patient is a 25-year-old female who is 3 weeks from delivery of twins. She presented with incisional pain and separation of the incision with this wound. This in 3 places. She was seen emergency department at [facility]. She came here to allow me to look at it. She denies any nausea, vomiting, fever, chills. She denies any chest pain or shortness of breath Chief Complaint: Wound complication Review of Systems Review of Systems: All systems reviewed & are unremarkable except as noted in HPI and below Constitutional: Constitutional: Denies chills, Denies fatigue, Denies fever(s) and Denies weakness Eyes: Eyes: Denies blurry vision, Denies change in vision, Denies loss of peripheral vision, Denies loss of vision, Denies other visual disturbances and Denies eye pain ENT: Denies vertigo, Denies dizziness, Denies hearing loss, Denies mouth pain, Denies nasal obstruction, Denies neck mass and Denies neck pain Cardiovascular: Cardiovascular: Denies chest pain, Denies diaphoresis, Denies syncope, Denies leg edema and Denies dyspnea Respiratory: Respiratory: Denies chest congestion, Denies cough, Denies hemoptysis, Denies dyspnea and Denies wheezing Gastrointestinal: Gastrointestinal: Denies abdominal pain, Denies constipation, Denies diarrhea, Denies nausea and Denies vomiting Genitourinary: Genitourinary: Denies hematuria, Denies change in libido, Denies nocturia, Denies genital lesions, Denies flank pain and Denies urinary urgency Musculoskeletal: Musculoskeletal: Denies abnormal gait, Denies back pain, Denies myalgias, Denies arthralgias, Denies joint swelling, Denies muscle weakness and Denies neck pain Integumentary/Breasts: Skin/Breast: Denies swelling, Denies breast pain, Denies breast mass, Denies dry skin, Denies nipple discharge, Denies unusual bruising and Denies jaundice Neurologic: Denies Neuro-related abnormal movements, Denies Abnormal speech present, Denies abnormal gait, Denies behavioral changes, Denies confusion, Denies vertigo, Denies dizziness, Denies syncope, Denies loss of vision, Denies memory loss, Denies convulsions and Denies weakness Psychiatric: Psychiatric: Denies abnormal sleep pattern, Denies behavioral changes, Denies change in libido, Denies confusion, Denies depression, Denies anhedonia and Denies memory loss Endocrine: Endocrine: Reports no additional endocrine complaints, Denies change in libido and Denies fatigue Hematologic/Lymphatic: Hematologic/Lymphatic: Reports no additional hematologic/lymphatic complaints Allergic/Immunologic: Allergic/Immunologic: Reports no additional allergic/immunologic complaints and Denies wheezing PMFSH Past Medical History Medical History (Updated 04/25/21 @ 15:12 by Gil Gandara MD) GDM (gestational diabetes mellitus) Family History Family History (Updated 03/27/21 @ 15:45 by Jonny Echols RN) Mother Migraine Father Kidney stones Sibling Crohn disease Social History Social History Smoking status: Never smoker Substance use: current Last use: LAST TIME- JUL 2020 Spiritual care concerns: No Meds Home Medications and Allergies Home Medications Medication Instructions Recorded Confirmed Type PNV cmb#95-ferrous fumarate-FA 1 tablet PO DAILY 02/15/21 04/06/21 History [] docusate sodium 100 mg PO BID PRN #60 cap 04/10/21 Rx hydrocodone-acetaminophen 1 tablet PO Q4-5H PRN #30 tablet 04/10/21 Rx ibuprofen 600 mg PO Q6H PRN #60 tablet 04/10/21 Rx Allergies Allergy/AdvReac Type Severity Reaction Status Date / Time oseltamivir [From Tamiflu] Allergy Hives Verified 03/27/21 15:42 Exam Const: General: cooperative, healthy appearing, comfortable and no acute distress; No confusion Orientation/consciousness: oriented to person, oriented to place, oriented to time and No confusion HENMT: Head: normal to inspecti
--- NOTE | 2021-04-25 15:20 | PC.NURSE ---
Pt here after being seen in the ED at [facility] in [place] to check abdominal incision. Pt has been on antibiotics, she will be finishing them today and using a nystop powder. She was in the office 04/17, Dr. Chacon evaluated her at that time. There is a small reddened area on each end of the low transverse incision. The right side is slightly more red and the pt states it hurts on that side. No drainage noted. Insorb domenic noted at each end of the incision.
== END 2021-04-25 15:20 | disposition home or self-care (01) ==
LOC: ANHOBOP 14:16 → ANHOBPP 04-30 06:42
PROVIDERS: PCP Family Medicine; Visit Provider Obstetrics & Gynecology
DX: O90.0 Disruption of cesarean delivery wound (principal)
CPT/HCPCS: 87070; 87147; 87181; 87186; 87205; 99199

== ENCOUNTER 2022-02-02 09:45 | Outpatient (CLI) | payer BC, SELFPAY ==
[2022-02-02 21:18] LABS: Alanine Aminotransferase 26 U/L (6-35); Albumin Level 4.3 g/dL (3.5-5.1); Alkaline Phosphatase 54 U/L (38-126); Anion Gap 10 mmol/L (8-16); Aspartate Amino Transferase 37 U/L (14-36); Bilirubin,Total 0.3 mg/dL (0.2-1.3); Blood Urea Nitrogen 14 mg/dL (7-17); Carbon Dioxide 24 mmol/L (22-30); Chloride 103 mmol/L (98-107); Cholesterol 180 mg/dL (0-200); Estimated Glomerular Filt Rate > 60; Glucose 83 mg/dL (65-110); HDL Direct 44 mg/dL; Potassium 4.1 mmol/L (3.4-5.0); Sodium 137 mmol/L (137-145); Triglycerides 78 mg/dL (<150)
[2022-02-02 21:29] LABS: LDL Cholesterol Direct 108 mg/dL
[2022-02-02 21:40] LABS: Hemoglobin A1C 5.5 % (<5.7)
[2022-02-02 21:47] LABS: Thyroid Stimulating Hormone Reflex 0.623 uIU/mL (0.465-4.68)
== END 2022-02-02 09:46 | disposition home or self-care (01) ==
PROVIDERS: PCP Emergency Medicine; Visit Provider Emergency Medicine
DX: E66.9 Obesity, unspecified (principal); Z86.32 Personal history of gestational diabetes
CPT/HCPCS: 36415; 80053; 80061; 83036; 84443

== ENCOUNTER 2022-02-27 14:21 | Emergency (ER) | payer BC, SELFPAY ==
--- NOTE | 2022-02-27 14:28 | ED.URI ---
HPI - URI/Sore Throat General Chief Complaint: Upper Respiratory Infection Stated Complaint: Sore Throat,Bilateral Ear Irritation,Headache History of Present Illness HPI Narrative: Jose Britt is a 26 yo female with a PMH of ADD, depression, [facility] congestion sore throat and headache for the last 24 hours. Her twin babies diagnosed this morning by the case investigator as having strep and all live with her parents because she is a single mother Related Data Home Medications Medication Instructions Recorded Confirmed dextroamphetamine-amphetamine 10 10 mg PO BID 02/02/22 02/27/22 mg tablet (Adderall) Allergies Allergy/AdvReac Type Severity Reaction Status Date / Time oseltamivir [From Tamiflu] AdvReac Mild Hives Verified 02/27/22 14:30 Review of Systems Review of Systems: CONSTITUTIONAL: Denies fever, chills, sweats. Has headache EYES: Denies visual changes, redness, discharge. ENT: Denies rhinorrhea, has congestion, has sore throat, otalgia. CARDIOVASCULAR: Denies chest pain, palpitations, edema. RESPIRATORY: Denies dyspnea, wheezing, cough GASTROINTESTINAL: Denies abdominal pain, nausea, vomiting, diarrhea. GENITOURINARY: Denies dysuria, hematuria, abnormal discharge SKIN: Denies rash or itching. NEUROLOGIC: Denies numbness, or focal weakness. PSYCHIATRIC: Denies anxiety or depression. PMFSH Past Medical History Medical History GDM (gestational diabetes mellitus) Family History Family History Mother Migraine Father Kidney stones Sibling Crohn disease Social History Social History Smoking status: Never smoker Substance use: current Last use: LAST TIME- JUL 2020 Spiritual care concerns: No Comments At time of signature, I agree with nursing past medical, surgical, social and family history. There is no relevant family history pertinent to the presenting complaint. Exam Narrative: GENERAL: This is a well-nourished, well-developed patient, in mild distress. Appears fatigued HEAD: normocephalic, atraumatic. EYES: . Sclera clear/white. Vision is grossly intact. EARS: External ears normal, auditory canals erythema and without drainage, TMs normal without perforation. Hearing grossly intact. NOSE: External nose normal without nasal discharge, nares without redness, no rhinorrhea. THROAT: Mucous membranes moist, posterior pharynx erythema minimal edema NECK: Neck supple, non-tender CARDIOVASCULAR: Regular rate and rhythm without murmurs, gallops, or rubs. RESPIRATORY: Clear to auscultation. Breath sounds equal bilaterally. No wheezes, rales, or rhonchi. GASTROINTESTINAL: Abdomen soft, non-tender, SKIN: warm, intact with no suspicious lesions or rash, good texture and turgor. NEURO: awake, alert, and oriented to person, place and time. There were no obvious focal neurologic abnormalities. Steady gait EXTREMITIES: Normal range of motion. BACK: Nontender without deformity Course Course Emergency Course: Patient comes to [facility] with complaints of sore throat, headache, chills and congestion x24 hours Strep test positive Start amoxicillin 500 mg 1 3 times daily x10 days, Tylenol or ibuprofen for fever pain control discussed isolation for 24 hours of antibiotics to prevent transmission to others Level of Care: Express Care Visit Vital Signs Vital signs: Vital Signs Temperature 98.6 F 02/27/22 14:31 Pulse Rate 93 02/27/22 14:31 Respiratory Rate 16 02/27/22 14:31 Blood Pressure 122/78 02/27/22 14:31 Pulse Oximetry 100 02/27/22 14:31 Oxygen Delivery Room Air 02/27/22 14:31 Temperature 98.6 F 02/27/22 14:31 Pulse Rate 93 02/27/22 14:31 Respiratory Rate 16 02/27/22 14:31 Blood Pressure 122/78 02/27/22 14:31 Pulse Oximetry 100 02/27/22 14:31 Oxygen Delivery Room
[2022-02-27 14:31] VITALS: BP 122/78; PULSE 93; RESP 16; TEMP 37; O2SAT 100
== END 2022-02-27 15:10 | disposition home or self-care (01) ==
PROVIDERS: Emergency Provider Nurse Practitioner; PCP Emergency Medicine
DX: J02.0 Streptococcal pharyngitis (principal); F98.8 Other specified behavioral and emotional disorders with onset usually occurring in childhood and adolescence
CPT/HCPCS: 87880; 99213; G0463

== ENCOUNTER 2022-03-24 18:18 | Emergency (ER) | payer BC, SELFPAY ==
[2022-03-24 18:24] VITALS: BP 145/86; PULSE 98; RESP 18; TEMP 36.6; O2SAT 100
--- NOTE | 2022-03-24 18:26 | ED.URI ---
HPI - URI/Sore Throat General Chief Complaint: Upper Respiratory Infection Stated Complaint: Sore Throat Time Seen by Provider: 03/24/22 18:24 Source: patient and RN notes reviewed History of Present Illness HPI Narrative: Patient is a 26-year-old female who presents the urgent care with complaints of sore throat, chills and bilateral ear pain. Patient states that it started yesterday. States that she was seen at our facility approximately 1 month ago and placed on amoxicillin for strep throat. Patient states that her twins of been passing it back and forth. Patient states that she had her tonsils removed 14 years ago and last month was the first time she was diagnosed with strep since then. Denies of any known fevers but states she has had body aches and chills. Denies nausea or vomiting. No other acute complaints. No acute distress noted. Patient aware of the plan of care. Some parts of this dictation were generated by voice recognition software and may contain typographical and/or grammatical inaccuracies. Related Data Home Medications Medication Instructions Recorded Confirmed dextroamphetamine-amphetamine 10 10 mg PO BID 02/02/22 03/24/22 mg tablet (Adderall) ondansetron 4 mg disintegrating 4 mg DIRECTED 03/24/22 03/24/22 tablet Allergies Allergy/AdvReac Type Severity Reaction Status Date / Time oseltamivir [From Tamiflu] AdvReac Mild Hives Verified 03/24/22 18:28 Review of Systems Review of Systems: CONSTITUTIONAL: Reports of chills EYES: Denies visual changes, redness, or discharge. ENT: Reports of sore throat and bilateral otalgia CARDIOVASCULAR: Denies chest pain, palpitations, or edema. RESPIRATORY: Denies cough or dyspnea. GASTROINTESTINAL: Denies abdominal pain, nausea, vomiting, or diarrhea. GENITOURINARY: Denies dysuria or hematuria. SKIN: Denies rash or itching. MUSCULOSKELETAL: Denies back pain, joint pain, or myalgia. NEUROLOGIC: Denies headache, numbness, or weakness. All other systems reviewed are negative, except as documented in HPI. [facility] Past Medical History Medical History GDM (gestational diabetes mellitus) Family History Family History Mother Migraine Father Kidney stones Sibling Crohn disease Social History Social History Smoking status: Never smoker Substance use: current Last use: LAST TIME- JUL 2020 Spiritual care concerns: No Comments At the time of my signature, I reviewed and agree with the nursing past medical, surgical, social, and family history. There is no relevant family history pertinent to the patient complaint. Exam Narrative: GENERAL: This is a well-nourished, well-developed patient, in no apparent distress. HEAD: normocephalic, atraumatic. EYES: PERRL. Sclera clear/white. Vision is grossly intact. EARS: External ears normal, auditory canals clear and without drainage, TMs normal without perforation. Hearing grossly intact. NOSE: External nose normal with no obvious nasal discharge, nares without redness, no rhinorrhea. THROAT: Mucous membranes moist, mild erythema noted posterior pharynx with mild postnasal drainage NECK: Neck supple, non-tender without lymphadenopathy, masses or thyromegaly. CARDIOVASCULAR: Regular rate and rhythm without murmurs, gallops, or rubs. RESPIRATORY: Clear to auscultation. Breath sounds equal bilaterally. No wheezes, rales, or rhonchi. SKIN: warm, intact with no suspicious lesions or rash, good texture and turgor. NEURO: awake, alert, and oriented to person, place and time. There were no obvious focal neurologic abnormalities. EXTREMITIES: No clubbing, cyanosis, or edema. Course Course Level of Care: Express Care Visit Vital Signs Vital signs: Vital Signs Temperature 97.9 F 03/24/22 18:24 Pulse Rate 98 03/24/22 18:24 Respiratory Rate
== END 2022-03-24 18:44 | disposition home or self-care (01) ==
PROVIDERS: Emergency Provider Nurse Practitioner Family; PCP Emergency Medicine
DX: J02.0 Streptococcal pharyngitis (principal)
CPT/HCPCS: 87880; 99213; G0463

== ENCOUNTER 2022-03-30 10:07 | Outpatient (CLI) | payer BC, SELFPAY | END 2022-03-30 10:08 | disposition home or self-care (01) | LOC: ANHGOSHLAB 10:08 | PROVIDERS: PCP Emergency Medicine; Visit Provider Emergency Medicine | DX: J02.9 Acute pharyngitis, unspecified (principal) | CPT/HCPCS: 87081; 87880 ==

== ENCOUNTER 2023-01-20 18:46 | Outpatient (NON) | payer OTHER, SELFPAY | END 2023-01-20 18:47 | disposition home or self-care (01) | LOC: ANHOBOP 18:48 | PROVIDERS: PCP Emergency Medicine; Visit Provider Emergency Medicine | DX: J02.9 Acute pharyngitis, unspecified (principal) | CPT/HCPCS: 87081 ==

== ENCOUNTER 2023-03-30 15:27 | Emergency (ER) | payer OTHER, SELFPAY ==
--- NOTE | ~2023-03-30 | XR_ITS ---
XR foot RT min 3V 03/30/2023 15:56 Indication: Right foot pain worsening for 2 weeks Procedure: 4 views right foot Comparison: 06/02/2017 Findings: There is anatomic alignment. No fracture, subluxation or dislocation. There are degenerativ e calcaneal enthesophyte at the plantar surface. No focal soft tissue abnormality. No foreign bodies. Lisfranc joint intact. Impression: 1: No acute fracture. Reviewed, dictated and finalized at location B. Impression: 1: No acute fracture.
[2023-03-30 15:35] VITALS: BP 128/66; PULSE 90; RESP 16; TEMP 36.2; O2SAT 100
--- NOTE | 2023-03-30 15:50 | ED.EXTPRO ---
HPI - Extremity Problem General Chief complaint: Extremity Problem,Nontraumatic Stated complaint: Rt Foot Pain Time Seen by Provider: 03/30/23 15:42 Source: patient and RN notes reviewed Mode of arrival: ambulatory Limitations: no limitations History of Present Illness HPI Narrative: Patient presents today complaining of right lateral foot pain x1 year. States it started off feeling, ?weird and off?, but now over the past 2 weeks she has started to feel increased pain and swelling, especially in the mornings. States her discomfort does improve throughout the day. She currently rates her pain 4/10 and has been taking ibuprofen without relief. Denies numbness or tingling. Denies injury or trauma. She has not seen her PCP regarding this discomfort. Related Data Home Medications Medication Instructions Recorded Confirmed norethindrone 1 mg-ethinyl 1 tablet PO DAILY 03/30/23 03/30/23 estradiol 20 mcg (21)-iron 75 mg (7) tablet (Rick Fe 07/09 (28)) Allergies Allergy/AdvReac Type Severity Reaction Status Date / Time lamotrigine AdvReac Mild Hives Verified 03/30/23 15:48 oseltamivir [From Tamiflu] AdvReac Mild Hives Verified 03/30/23 15:31 Review of Systems Review of Systems: CONSTITUTIONAL: Denies body aches, fever, chills, or sweats. EYES: Denies visual changes, redness, or discharge. ENT: Denies rhinorrhea, congestion, sore throat, or otalgia. CARDIOVASCULAR: Denies chest pain, palpitations, or edema. RESPIRATORY: Denies cough or dyspnea. GASTROINTESTINAL: Denies abdominal pain, nausea, vomiting, or diarrhea. GENITOURINARY: Denies dysuria or hematuria. SKIN: Denies rash, itching, or wounds. MUSCULOSKELETAL: Denies back pain, or myalgia.+ right foot pain and swelling NEUROLOGIC: Denies headache, numbness, tingling, or weakness. PSYCH: Denies depression or anxiety. [facility] Past Medical History Medical History GDM (gestational diabetes mellitus) Family History Family History Mother Migraine Father Kidney stones Sibling Crohn disease Social History Social History Smoking status: Never smoker Alcohol intake: never Substance use: never Last use: LAST TIME- JUL 2020 Lack of Transportation: No Concerned About Future Housing: No Difficulty Paying Gas/Electric Bills: Decline to Answer Difficulty Paying for Meds: No Currently Unemployed: No Education: High School Diploma/GED Spiritual care concerns: No Comments At time of signature, I have reviewed and agree with nursing past medical, surgical, social and family history unless otherwise noted. Please see nursing chart for further information. There is no relevant family history pertinent to the presenting complaint Exam Narrative: GENERAL: Well-appearing, well-nourished, and in no acute distress. HEAD: Normocephalic, atraumatic. EYES: EOMI. No redness or drainage. Conjunctivae normal. ENT: Mucous membranes pink and moist. NECK: Normal AROM. CHEST: No respiratory distress. EXTREMITIES: Right foot: Patient localizes her pain to the lateral foot, but is nontender in this area or in the remainder of the foot. No tenderness to the ankle. Patient does have small area of localized edema to the lateral foot. No ecchymosis or erythema noted. Distal sensation intact. Capillary refill normal. Pedal pulse normal. Full range of motion of the foot without pain.. SKIN: Warm, dry, no rash. Capillary refill normal. Normal skin turgor. NEURO: No focal deficits. Alert and oriented x3. Gait steady. PSYCH: Normal affect. No signs of depression or anxiety. Course Course Level of Care: Express Care Visit Vital Signs Vital signs: Vital Signs Temperature 97.2 F L 03/30/23 15:35 Pulse Rate 90 03/30/23 15:35 Respiratory Rate 16
== END 2023-03-30 16:30 | disposition home or self-care (01) ==
PROVIDERS: Emergency Provider Nurse Practitioner; PCP Emergency Medicine
DX: M79.671 Pain in right foot (principal)
CPT/HCPCS: 73630; 99213; G0463

== ENCOUNTER 2023-07-14 09:32 | Outpatient (CLI) | payer OTHER, SELFPAY ==
--- NOTE | ~2023-07-14 | US_ITS ---
EXAMINATION: US breast BI limited HISTORY: Bilateral nipple pain TECHNIQUE: Targeted ultrasound is performed in the subareolar aspect of the breasts. FINDINGS: No suspicious cystic or solid mass is identified. No sonographic correlate is identified in either breast for the patient's reported nipple pain. IMPRESSION: No specific sonographic correlate is identified for the patient's reported bilateral nipple pain. Fur ther evaluation at this time should be based on clinical assessment. Continued follow-up physical exa mination is recommended. BI-RADS Category 1: Negative Reviewed, dictated and finalized at location A. [employer] IMPRESSION: No specific sonographic correlate is identified for the patient's reported bila teral nipple pain. Further evaluation at this time should be based on clinical assessment. Continued follow-up physical examination is recommended. BI-RADS Category 1: Negative
== END 2023-07-14 09:33 | disposition home or self-care (01) ==
LOC: ANHIMG 09:35
PROVIDERS: PCP Emergency Medicine; Visit Provider Nurse Practitioner
DX: N64.4 Mastodynia (principal)
CPT/HCPCS: 76642

== ENCOUNTER 2023-09-20 14:45 | Outpatient (RCR) | payer OTHER, SELFPAY ==
--- NOTE | 2023-08-30 16:23 | OPREHPOC ---
Outpatient Therapy Plan of Care This is a Multidisciplinary Plan of Care that may contain components documented by all disciplines (PT, OT, and ST.) PT Problem 1 PT Problem #1 Knowledge Deficit PT Goal 1 Goal Pt to be IND with issued HEP Target Visit 8 PT Problem 2 PT Problem #2 Pain PT Goal 1 Goal Pt to report foot/ankle pain no greater than 3/10 in the last week. Target Visit 8 PT Goal 2 Goal Pt to report 75% improvement in overall symptoms. Target Visit 8 PT Problem 3 PT Problem #3 Impaired Range of Motion PT Goal 1 Goal Pt to increase active ankle dorsiflexion to 15 deg willow Target Visit 8 PT Problem 4 PT Problem #4 Impaired Strength PT Goal 1 Goal Pt to improve willow hip strength to grossly 4/5 throughout. Target Visit 8
--- NOTE | 2023-08-30 16:24 | PTOPEVAL1 ---
Assessment and note entered by Ruben Yee, PT, DPT Evaluation Information Assessment Status Evaluation Diagnosis willow foot and ankle pain Subjective Information Pt states about 6 months ago she went to an urgent care clinic d/t lots of swelling in the R ankle. She states her ankle is not swollen currently but the swelling will switch back and forth between each foot. She states the pain fluctuates from each foot and will vary in intensity. She states she has not had an issue with swelling in a couple of months. Pt has 2 year old twins and works two job that both require lots of standing. Reported Pain Level Pain Score 2,2: Self Report Assessment PT Clinical Summary Angy presents to therapy today for her initial evaluation with a diagnosis of willow foot and ankle osteoarthritis. Today she demonstrates good passive motion on her foot and ankle joints with the most limitation in dorsiflexion motion. She demonstrates gastroc and soleus tightness and is slightly tender with palpation. In standing she has little to no arch willow with calcaneal inversion . She also has decreased hip and core strength. Skilled therapy services are indicated to improve strength and ROM deficits, to manage pain, and to improve functional mobility. Plan of Care Interventions Electrical Stimulation,Gait Training,Hot Pack/Cold Pack,Intermittent Compression,Manual Therapy, Neuro Re-education,Patient/Caregiver Educati, Therapeutic Activities,Therapeutic Exercise PT Services Indicated Yes Treatment Frequency and 1x/wk for 8 visits Duration These treatments will address the objective and functional deficits as defined above. The patient will be advanced safely and appropriately in order for the patient to progress towards his/her prior level of function. Additional exercises will be introduced and as well as a comprehensive home exercise program upon discharge, if needed, ?to ensure carryover of functional gains achieved in the clinic. This treatment plan has been reviewed and agreement upon by the patient.
--- NOTE | 2023-09-13 16:38 | PCPTNOTE ---
Patient called to cancel due to sick children.
--- NOTE | 2023-09-27 15:08 | PCPTNOTE ---
Patient no showed to appointment this date. Attempted to call patient however the mailbox was full.
--- NOTE | 2023-10-04 16:22 | PCPTNOTE ---
Patient did not show up for scheduled appointment this date. Called and LVM with follow up instructions if needed.
--- NOTE | 2023-11-28 12:31 | PTOPDC ---
Assessment and note entered by Destinee Bender DPT Evaluation Information Assessment Status Discharge - Pt Not Present Diagnosis willow foot and ankle pain Subjective Information - Assessment PT Clinical Summary The patient has not attended therapy since 09/20/23. She will be discharged this date and require a new script to return in the future. Plan of Care PT Services Indicated No
== END 2023-11-28 13:16 | disposition home or self-care (01) ==
LOC: ANHGOSHPT 14:45
PROVIDERS: PCP Emergency Medicine; Visit Provider Emergency Medicine
DX: M72.2 Plantar fascial fibromatosis (principal); M19.079 Primary osteoarthritis, unspecified ankle and foot
CPT/HCPCS: 97110; 97140; 97161; 99199

== ENCOUNTER 2024-02-16 09:41 | Outpatient (CLI) | payer OTHER, SELFPAY ==
[2024-02-16 12:23] LABS: Basophils Absolute Auto 0.1 K/mm3 (0.0-0.1); Basophils Percent Auto 1.1 % (0.2-1.2); Eosinophils Absolute Auto 1.9 K/mm3 (0-0.3); Eosinophils Percent Auto 21.6 % (0-4.4); Hematocrit 40.9 % (37.0-47.0); Hemoglobin 13.3 g/dL (12.0-15.0); Immature Granulocyte Absolute 0.02 K/mm3 (0.00-0.031); Immature Granulocyte Percent A 0.2 % (0-0.5); Lymphocytes Absolute Auto 1.97 K/mm3 (0.9-3.2); Lymphocytes Percent Auto 22.6 % (18.3-44.2); Mean Corpuscular HGB Conc 32.5 g/dl (32-36); Mean Corpuscular Hemoglobin 30.7 pg (26-34); Mean Corpuscular Volume 94.5 fl (80-100); Monocytes Absolute Auto 0.6 K/mm3 (0.1-0.6); Monocytes Percent Auto 6.6 % (2.6-8.5); Neutrophils Absolute Auto 4.2 K/mm3 (1.3-6.7); Neutrophils Percent Auto 47.9 % (45.5-73.1); Platelet Count Result 307 k/mm3 (150-375); Red Blood Count 4.33 M/mm3 (4.2-5.4); Red Cell Distribution Width 13.1 % (11.5-14.5); White Blood Count 8.7 K/mm3 (4.5-10.0)
[2024-02-16 13:38] LABS: Alanine Aminotransferase 22 U/L (6-35); Albumin Level 4.4 g/dL (3.5-5.1); Alkaline Phosphatase 53 U/L (38-126); Anion Gap 9 mmol/L (4-12); Aspartate Amino Transferase 38 U/L (14-36); Bilirubin,Total 0.2 mg/dL (0.2-1.3); Blood Urea Nitrogen 17 mg/dL (7-17); Calcium 9.3 mg/dL (8.4-10.2); Carbon Dioxide 28 mmol/L (22-30); Chloride 100 mmol/L (98-107); Cholesterol 184 mg/dL (0-200); Estimated Glomerular Filt Rate > 60; Glucose 96 mg/dL (65-110); HDL Direct 45 mg/dL; Potassium 4.2 mmol/L (3.4-5.0); Sodium 137 mmol/L (137-145); Triglycerides 75 mg/dL (<150)
[2024-02-16 13:49] LABS: LDL Cholesterol Direct 113 mg/dL
[2024-02-16 13:51] LABS: Hemoglobin A1C 5.7 % (<5.7)
[2024-02-16 13:55] LABS: Iron 93 ug/dL (37-170)
[2024-02-16 14:04] LABS: Percent Iron Saturation 28 % (20-50)
[2024-02-16 14:40] LABS: Folic Acid 9.3 ng/mL (2.76->20)
[2024-02-16 14:48] LABS: Thyroid Stimulating Hormone Reflex 0.599 uIU/mL (0.465-4.68)
[2024-02-16 17:37] LABS: Vitamin D 25 Hydroxy 25.5 ng/mL
== END 2024-02-16 09:42 | disposition home or self-care (01) ==
LOC: ANHGOSHLAB 09:43
PROVIDERS: PCP Emergency Medicine; Visit Provider Emergency Medicine
DX: R53.83 Other fatigue (principal); F32.9 Major depressive disorder, single episode, unspecified; F41.9 Anxiety disorder, unspecified; E66.9 Obesity, unspecified; E55.9 Vitamin D deficiency, unspecified
CPT/HCPCS: 36415; 80053; 80061; 82306; 82607; 82728; 82746; 83036; 83540; 83550; 84443; 85025

== ENCOUNTER 2024-05-29 08:47 | Emergency (ER) | payer MEDICAID, SELFPAY ==
--- NOTE | 2024-05-29 09:43 | ED_ITS ---
HPI - URI/Sore Throat General Chief Complaint: Upper Respiratory Infection Stated Complaint: head/ears/throat pain/nauseous Time Seen by Provider: 05/29/24 10:41 Source: patient and RN notes reviewed Mode of arrival: ambulatory Limitations: no limitations History of Present Illness HPI Narrative: 28-year-old female presents concern for one-week history of head congestion, headache cough throat pain, nausea, ear pain. She has not taken any [id number] medications her kids have similar symptoms MD elicited complaint: cough and sore throat Related Data Home Medications ?Medication ?Instructions ?Recorded ?Confirmed ?Last Taken ?Type drospirenone (contraceptive) 4 mg 1 tablet PO DAILY 02/16/24 05/29/24 Unknown Hi story (28) tablet (Slynd) Allergies Allergy/AdvReac Type Severity Reaction Status Date / Time lamotrigine AdvReac Mild Hives Verified 05/29/24 09:51 oseltamivir (From Tamiflu) AdvReac Mild Hives Verified 05/29/24 09:51 Review of Systems Review of Systems: CONSTITUTIONAL: Denies malaise, chills, sweats, or fever. EYES: Denies visual changes, redness, or discharge. ENT: Reports rhinorrhea, congestion, otalgia and sore throat. CARDIOVASCULAR: Denies chest pain, palpitations, or edema. RESPIRATORY: Reports cough. Denies dyspnea. GASTROINTESTINAL: Denies abdominal pain, nausea, vomiting, diarrhea SKIN: Denies rash or itching. MUSCULOSKELETAL: Denies myalgia. NEUROLOGIC: Reports headache. All systems reviewed & are unremarkable except as noted in HPI and below PMFSH Past Medical History Medical History GDM (gestational diabetes mellitus) Family History Family History Mother Migraine Father Kidney stones Sibling Crohn disease Social History Social History Smoking status: Never smoker Alcohol intake: never Substance use: never Last use: LAST TIME- JUL 2020 Lack of Transportation: No Concerned About Future Housing: No Difficulty Paying Gas/Electric Bills: Decline to Answer Difficulty Paying for Meds: No Currently Unemployed: No Education: High School Diploma/GED Spiritual care concerns: No Comments At time of signature, agree with nursing past medical, surgical, social and family history. There is no relevant family history pertinent to the presenting complaint Exam Narrative: GENERAL: Well-appearing, well-nourished, and in no acute distress. HEAD: Normocephalic EYES: PERRLA, conjunctivae clear ENT: Nares clear, turbinates edematous and erythematous, clear discharge. Mucous membranes moist. TM pearly malhotra with dull light reflex bilaterally; no tragal tenderness. Oropharynx not erythematous without lesions. Tonsils not enlarged and without exudate, no drooling, no hoarseness, no trismus, uvula midline. NECK: Supple. No lymphadenopathy CHEST: Clear to auscultation, breath sounds equal. No wheezing, rhonchi, rales, or stridor. No respiratory distress, speaks in full sentences. HEART: Regular rate and rhythm. No murmur heard. SKIN: Warm, dry, no rash. NEURO: Alert and oriented x3. PSYCH: Normal mood and affect Course Course Emergency Course: Patient is aware of diagnosis, understands and agrees to treatment plan. Anticipatory guidance given. Patient agrees to follow-up as directed and is aware of reasons to seek care at the emergency department. Portions of this record may have been created with voice recognition software Level of Care: Express Care Visit Vital Signs Vital signs: Vital Signs Temperature 97.6 F 05/29/24 10:04 Pulse Rate 77 05/29/24 10:04 Respiratory Rate 17 05/29/24 10:04 Blood Pressure 131/75 05/29/24 10:04 Pulse Oximetry 100 05/29/24 10:04 Oxygen Delivery Room Air 05/29/24 10:04 Temperature 97.6 F 05/29/24 10:04 Pulse Rate 77 05/29/24 10:04 Respiratory Rate 17 05/29/24 10:04 Blood Pressure 131/75 05/29/24 10:04 Pulse Oximetry 100 05/29/24 10:04 Oxygen Delivery Room Air 05/29/24 10:04 Reviewed. MDM - URI/Sore Throat MDM Narrative Medical decision making narrative: Differential diagnosis considered: Lindquist virus, strep pharyngitis, allergic rhinitis, upper respiratory tract infection, sinusitis, rhinosinusitis, nasopharyngitis. viral pharyngitis, otitis media, otitis externa, pneumonia, bronchitis, viral cough syndrome, viral syndrome, and influenza. Exam findings show no acute concerns or changes; patient is non-toxic appearing and is in no distress. Patient is appropriate for outpatient treatment and follow-up. Lab Data Attestation: I reviewed the patient's lab results. Labs: Lab Results 05/29/24 05/29/24 Range/Units 10:19 10:20 POC Influenza A Ag Negative (Negative) POC Influenza B Ag Negative (Negative) POC SARS CoV-2 Ag Pending POC Grp A Strep Screen Negative (Negative) Critical Care Time Critical Care Time Critical Care Time: No Discharge Plan Discharge Clinical Impression: Lower respiratory tract infection Patient Disposition: Home, Self-Care Condition: Stable Instructions: Antibiotic Form, Acute Cough (ED) Additional Instructions: 1) Please follow-up with your primary care doctor in the next 1-2 days. 2) If you have any worsening of symptoms or any other urgent concerns please go to the ER. 3) Please take medications as prescribed and continue taking your home medications as usual. 4) Please read and follow information included in discharge instructions. Patient Language: Spanish Prescriptions: New azithromycin [Zithromax Z-Cristo] 250 mg tablet See Rx Instructions .ROUTE .COMPLEX Qty: 6 0RF Rx Instructions: take 500 mg today (day 1), then 250 mg for 4 days (days 2-5) No Action Slynd 4 mg (28) tablet 1 tablet PO DAILY trazodone 50 mg tablet 50 mg PO QHS Qty: 30 1RF dextroamphetamine-amphetamine 30 mg tablet 30 mg PO BID Qty: 60 0RF Rx Instructions: administer doses at least 4-6 hours apart lurasidone 20 mg tablet 20 mg PO DAILY Qty: 90 2RF Rx Instructions: must administer with food (at least 350 calories) Follow-up/Referrals: PHYSICIAN,HIGH DENSITY PRESS OPERATOR [Primary Care Provider] - Time of Disposition: 11:03
[2024-05-29 10:04] VITALS: BP 131/75; PULSE 77; RESP 17; TEMP 36.4; O2SAT 100
[2024-05-29 10:23] LABS: EDINFLUASCREEN Negative (Negative); EDINFLUBSCREEN Negative (Negative)
[2024-05-29 10:23] LABS: EDSTREPNEGPOS1 Negative (Negative)
[2024-05-30 07:33] LABS: EDCOVIDSCREEN Negative (Negative)
== END 2024-05-29 11:15 | disposition home or self-care (01) ==
PROVIDERS: Emergency Provider Nurse Practitioner
DX: J22 Unspecified acute lower respiratory infection (principal); Z20.822 Contact with and (suspected) exposure to COVID-19
CPT/HCPCS: 87081; 87426; 87804; 87880; 99213; G0463

== ENCOUNTER 2024-10-08 12:22 | Emergency (ER) | payer MEDICAID, SELFPAY ==
--- NOTE | ~2024-10-08 | XR_ITS ---
XR foot RT min 3V Ordering provider: Odessa Ferrer APRN History: . R foot pain, hx of arthritis . Comparison: March 30, 2023 FINDINGS: BONES: Fracture at the base of the fifth metatarsal bone. No other fractures seen. JOINT SPACES: Normal. No tarsal coalition. SOFT TISSUES: Soft tissue swelling in the area of the fifth metatarsal bone. Calcaneus spur. IMPRESSION: No acute osseous abnormality of the fracture base of the fifth metatarsal bone. Reviewed, dictated and finalized at location A.
[2024-10-08 13:17] VITALS: BP 120/80; PULSE 87; RESP 16; TEMP 36.7; O2SAT 100
--- NOTE | 2024-10-08 13:27 | ED.LOWEXIN ---
HPI - Extremity Injury (Lower) General Chief Complaint: Extremity Injury, Lower <Odessa Ferrer APRN - Last Filed: 10/08/24 13:29> Stated Complaint: Injury right foot <Odessa Ferrer APRN - Last Filed: 10/08/24 13:29> Time Seen by Provider: 10/08/24 13:20 <Odessa Ferrer APRN - Last Filed: 10/08/24 13:29> Focused HPI: Patient is a female who presents to the ER with complaints of right lower extremity pain. She reports she was playing volleyball this morning when she fell. Patient is unsure about her mechanism of injury. She endorses a history of ADHD and arthritis in her lower extremities. Patient denies any history of blood clots, calf pain, recent fevers, or gout. GENERAL: Well-appearing, well-nourished, and in no acute distress. HEAD: Normocephalic, atraumatic. CHEST: Clear to auscultation. ?No respiratory distress. HEART: Regular rate and rhythm.? NEURO: ?Alert and oriented x3. Patient screened in triage and initial orders placed.? ?Additional care and disposition to be based upon?diagnostic testing and treatment. <Odessa Ferrer APRN - Last Filed: 10/08/24 13:29> Source: patient and RN notes reviewed <Inna Coleman MD - Last Filed: 10/08/24 15:17> Limitations: no limitations <Inna Coleman MD - Last Filed: 10/08/24 15:17> History of Present Illness HPI Narrative: I have reviewed and agree with MSE done by advanced provider. PAtient reports right foot pain after playing volley ball. Her pain is located right lower foot. Her pain radiates to her ankle . She has not pain at rest but reports pain worse with walking. <Inna Coleman MD - Last Filed: 10/08/24 15:17> Related Data Home Medications: Home Medications ?Medication ?Instructions ?Recorded ?Confirmed ?Last Taken ?Type drospirenone (contraceptive) 4 mg 1 tablet PO DAILY 02/16/24 05/29/24 Unknown History (28) tablet (Slynd) <Odessa Ferrer APRN - Last Filed: 10/08/24 13:29> Allergies/Adverse Reactions: Allergies Allergy/AdvReac Type Severity Reaction Status Date / Time lamotrigine AdvReac Mild Hives Verified 10/08/24 12:23 oseltamivir (From Tamiflu) AdvReac Mild Hives Verified 10/08/24 12:23 <Odessa Ferrer, ENVIRONMENTAL PROGRAMS MANAGER - Last Filed: 10/08/24 13:29> PMFSH Past Medical History Medical History: Medical History GDM (gestational diabetes mellitus) <Odessa Ferrer, ENVIRONMENTAL PROGRAMS MANAGER - Last Filed: 10/08/24 13:29> Family History Family History: Family History Mother Migraine Father Kidney stones Sibling Crohn disease <Odessa Ferrer, ENVIRONMENTAL PROGRAMS MANAGER - Last Filed: 10/08/24 13:29> Social History Social History: Social History Smoking status: Never smoker Alcohol intake: never Substance use: never Last use: LAST TIME- JUL 2020 Lack of Transportation: No Concerned About Future Housing: No Difficulty Paying Gas/Electric Bills: Decline to Answer Difficulty Paying for Meds: No Currently Unemployed: No Education: High School Diploma/GED Spiritual care concerns: No <Odessa Ferrer, ENVIRONMENTAL PROGRAMS MANAGER - Last Filed: 10/08/24 13:29> Exam Const: General: no acute distress and alert <Inna Coleman MD - Last Filed: 10/08/24 15:17> Nutritional Appearance: well nourished <Inna Coleman MD - Last Filed: 10/08/24 15:17> Orientation/consciousness: patient oriented x3 <Inna Coleman MD - Last Filed: 10/08/24 15:17> Resp: Effort & Inspection: normal respiratory effort <Inna Coleman MD - Last Filed: 10/08/24 15:17> Skin: General skin exam: normal color <Inna Coleman MD - Last Filed: 10/08/24 15:17> Rashes: no rashes <Inna Coleman MD - Last Filed: 10/08/24 15:17> Neuro: General: patient oriented x3 and moves all extremities <Inna Coleman MD - Last Filed: 10/08/24 15:17> Extrem: Other: No foot swelling, no ankle tenderness or swelling, no ecchymosis. She has palpable pedal pulses <Inna Coleman MD - Last Filed: 10/08/24 15:17> Psych: Mental Status: mental status grossly normal <Inna Coleman MD - Last Filed: 10/08/24 15:17> Affect: normal affect <Inna Coleman MD - Last Filed: 10/08/24 15:17> Attitude: cooperative <Inna Coleman MD - Last Filed: 10/08/24 15:17> Course Reevaluation(s) Reevaluation #1: I discussed with patient no acute findings on xray. I wrapped foot with lucio bandage. She has not ankle tenderness. She is comfortable discharge plan. <Inna Coleman MD - Last Filed: 10/08/24 15:17> Date: 10/08/24 <Inna Coleman MD - Last Filed: 10/08/24 15:17> Time: 15:15 <Inna Coleman MD - Last Filed: 10/08/24 15:17> Vital Signs Vital signs: Vital Signs Temperature 98.0 F 10/08/24 13:17 Pulse Rate 87 10/08/24 13:17 Respiratory Rate 16 10/08/24 13:17 Blood Pressure 120/80 10/08/24 13:17 Pulse Oximetry 100 10/08/24 13:17 Oxygen Delivery Room Air 10/08/24 13:17 Temperature 98.0 F 10/08/24 13:17 Pulse Rate 87 10/08/24 13:17 Respiratory Rate 16 10/08/24 13:17 Blood Pressure 120/80 10/08/24 13:17 Pulse Oximetry 100 10/08/24 13:17 Oxygen Delivery Room Air 10/08/24 13:17 <Odessa Ferrer APRN - Last Filed: 10/08/24 13:29> Vital Signs Temperature 98.0 F 10/08/24 13:17 Pulse Rate 87 10/08/24 13:17 Respiratory Rate 16 10/08/24 13:17 Blood Pressure 120/80 10/08/24 13:17 Pulse Oximetry 100 10/08/24 13:17 Oxygen Delivery Room Air 10/08/24 13:17 Temperature 98.0 F 10/08/24 13:17 Pulse Rate 87 10/08/24 13:17 Respiratory Rate 16 10/08/24 13:17 Blood Pressure 120/80 10/08/24 13:17 Pulse Oximetry 100 10/08/24 13:17 Oxygen Delivery Room Air 10/08/24 13:17 <Inna Coleman MD - Last Filed: 10/08/24 15:17> MDM - Extremity Injury (Lower) Differential Diagnosis Differential diagnosis: Likely ankle sprain and strain <Inna Coleman MD - Last Filed: 10/08/24 15:17> Imaging Data Radiologist's impression: ITS Impressions Foot X-Ray 10/08/24 14:12 IMPRESSION: No acute osseous abnormality of the fracture base of the fifth metatarsal bone. <Inna Coleman MD - Last Filed: 10/08/24 15:17> Discharge Plan Discharge Clinical Impression: Acute pain of right foot <Odessa Ferrer APRN - Last Filed: 10/08/24 13:29> Patient Disposition: Home <Odessa Ferrer APRN - Last Filed: 10/08/24 13:29> Condition: Stable <Odessa Ferrer APRN - Last Filed: 10/08/24 13:29> Instructions: Antibiotic Form, Foot Sprain (ED) <Odessa Ferrer APRN - Last Filed: 10/08/24 13:29> Patient Language: Yi <Odessa Ferrer APRN - Last Filed: 10/08/24 13:29> Prescriptions: No Action azithromycin [Zithromax Z-Cristo] 250 mg tablet See Rx Instructions .ROUTE .COMPLEX Qty: 6 0RF Rx Instructions: take 500 mg today (day 1), then 250 mg for 4 days (days 2-5) Slynd 4 mg (28) tablet 1 tablet PO DAILY trazodone 50 mg tablet 50 mg PO QHS Qty: 30 1RF lurasidone 20 mg tablet 20 mg PO DAILY Qty: 90 2RF Rx Instructions: must administer with food (at least 350 calories) dextroamphetamine-amphetamine 30 mg tablet 30 mg PO BID Qty: 60 0RF Rx Instructions: administer doses at least 4-6 hours apart <Odessa Ferrer APRN - Last Filed: 10/08/24 13:29> Follow-up/Referrals: Marcial Barrientos DO [Physician] - PHYSICIAN,INCOME TAX ADJUSTER [Non-Staff] - <Odessa Ferrer APRN - Last Filed: 10/08/24 13:29>
--- OUTSIDE RECORDS SUMMARY | 2024-10-08 13:47 | XMS_ITS | Clinical Summary ---
Author Organization [facility] Address [address] [place] [id number] Care Team Providers Care Signal Worker Helper Name Role Phone None, Provider Primary Care Provider Unavaila ble Allergies Active Allergy Reactions Criticality Noted Date Comments Oseltamivir Hives,Rash,Unknown High 07/15/2020 Other reaction(s): Hives Medications amphetamine-dextro amphetamine (ADDERALL) 10 MG tablet Take 1 tablet (10 mg total) by mouth daily. Active ondansetron (ZOFRAN-ODT) 4 MG disintegrating tablet Take 1 tablet (4 mg total) by mouth every 8 (eight) hours as needed for Nausea. 20 tablet 03/02/20 22 025 Discontinued pantoprazole EC (PROTONIX) 20 MG tablet Take 20 mg by mouth daily as needed. 025 Discontinued Encounters Date Type Department Care Team Description 09/21/2024 8:09 PM CDT - 09/21/2024 10:37 PM CDT Emergency [facility] Emergency Room [address] [place] [address] Eitan Cordon MD Fatigue Discharge Disposition: Home or Self Care (Routine Discharge) 09/21/2024 Travel from Last 3 Months Family History Medical History Relation Comments Kidney Stones Father Kidney Stones Mother Relation Status Comments Father Alive Mother Alive Social History Tobacco Use Types Packs/Day Years Used Date Smoking Tobacco: Never Smokeless Tobacco: Never Tobacco Cessation:Counseling Given: Not Answered Alcohol Use Standard Drinks/Week Comments No 0 (1 standard drink = 0.6 oz pur e alcohol) AUDIT-C Answer Date Recorded Frequency of Alcohol Consumption Never 07/11/2019 Average Number of Drinks Not on file 020 Frequency of Binge Drinking Not on file 06/21 Comments No Sex and Gender Information Value Date Recorded Sex Assigned at Not on file Legal Sex Female 8:11 PM CDT Gender Identity Not on file Sexual Orientation Not on file Last Filed Vital Signs Vital Sign Reading Time Taken Comments Blood Pressure 140/78 09/21/2024 10:34 PM CDT Pulse 86 09/21/2024 10:34 PM CDT Temperature 36.7 C (98 F) 09/21/2024 10:34 PM CDT Respiratory Rate 18 09/21/2024 10:34 PM CDT Oxygen Saturation 99% 09/21/2024 10:34 PM CDT Inhaled Oxygen Concentration - - Weight 117.9 kg (260 lb) 09/21/2024 8:15 PM CDT Height 175.3 cm (5' 9 ) 09/21/2024 8:15 PM CDT Body Mass Index 38.4 09/21/2024 8:15 PM CDT Plan of Treatment Health Maintenance Due Date Last Done Comments Cervical Cancer Screening Pap Smear (Age 30 to 64) Every 3 Years 1993 Annual Physical 1996 Hepatitis C 2011 Hepatitis B Vaccines (1 of 3 - 19+ 3-dose series) 2012 Cervical Cancer Screening Pap with HPV Testing (Age 30 to 64) Every 5 Years 2023 Cervical Cancer Screening with HPV 2023 COVID-19 Vaccine ( season) 2024 05/08/2022, 05/13/2021, 10/31/2020, Additional history exists DTaP, Tdap and Td Vaccines (3 - Td or Tdap) 03/09/2031 03/09/2021, 02/06/1999 HPV Vaccines Aged Out No longer eligi ble based on patient's age to complete this topic Meningococcal B Vaccine Aged Out No l onger eligible based on patient's age to complete this topic Meningococcal Vaccine Aged Out No mikaela omer eligible based on patient's age to complete this topic Pneumococcal Vaccine: Pediatrics (0 to 5 Years) and At-Risk Patients (6 to 49 Years) Aged Out No longer eligible based on patient's age to complete this topic RSV Immunizations Under 20 Months Aged Out No longer eligible based on patient's age to complete this topic Procedures Procedure Name Priority Date/Time Associated Diagnosis Comments CORONAVIRUS (COVID 19) STAT 09/21/2024 8:21 PM CDT INFLUENZA A & B STAT 09/21/2024 8:21 PM CDT from Last 3 Months Results * CORONAVIRUS (COVID-19) MOLECULAR (09/21/2024 8:21 PM CDT) CORONAVIRUS SARS COV 2 RNA NEGATIVE NEGATIVE 09/21/2024 8:45 PM CDT [facility] Comment: NEGATIVE RESULTS DO NOT RULE OUT COVID 19 AND SHOULD NOT BE USED THE SOLE BASIS FOR TREATMENT OR PATIENT MANAGEMENT DECISIONS, INCLUDING INFECTION CONTROL DECISIONS. NEGATIVE RESULTS SHOULD BE CONSIDERED IN THE CONTEXT OF A PATIENT'S RECENT EXPOSURES, HISTORY AND THE PRESENCE OF CLINICAL SIGNS AND SYMPTOMS CONSISTENT WITH COVID 19. THE ID NOW COVID-19 2.0 TEST HAS BEEN AUTHORIZED BY THE FDA UNDER EAU FOR USE BY AUTHORIZED LABORATORIES. PERFORMED BY NUCLEIC ACID AMPLIFICATION FOR MOLECULAR QUALITATIVE DETECTION OF SARS-COV-2. SPECIMEN TYPE NASAL 09/21/2024 8:22 PM CDT [facility] NASOPHARYNGEAL SWAB / Unknown 09/21/2024 8:21 PM CDT Eitan Cordon MD MICROBIOLOGY - G ENERAL ORDERABLES Final Result [facility] [address] [place] [address], [place] [phone] * INFLUENZA A & B (09/21/2024 8:21 PM CDT) SPECIMEN TYPE NASOPHARYNX 09/21/2024 8:46 PM CDT [facility] INFLUENZA A NEGATIVE NEGATIVE 09/21/2024 8:46 PM CDT [facility] INFLUENZA B NEGATIVE NEGATIVE 09/21/2024 8:46 PM CDT [facility] NASAL NASOPHARYNGEAL SWAB / Unknown 09/21/2024 8:21 PM CDT Eitan Cordon MD MICROBIOLOGY - G ENERAL ORDERABLES Final Result [facility] [address] [place] [address], [place] [phone] from Last 3 Months Insurance MEDICAID [place] Care Teams Signal Worker Helper Relationship Specialty Start Date End Date None, Provider, PCP - General 03/02/22
--- OUTSIDE RECORDS SUMMARY | 2024-10-08 13:48 | XMS_ITS | Clinical Summary ---
Author Organization [facility] [place] Address [address] [place] [address] Care Team Providers Care Meat Passer Name Role Phone Unavailable Primary Care Provider Unavailabl e Allergies Active Allergy Reactions Criticality Noted Date Comments Oseltamivir Hives,Rash High 07/15/2020 Other reaction(s): Hives Medications aspirin 81 mg chewable tablet Chew 81 mg 1 (one) time each day. Active PNV cmb#95-ferrous fumarate-FA 28 mg iron- 800 mcg tablet Take 1 tablet by mouth 1 (one) time each day. Active cephalexin (KEFLEX) 500 mg capsule Take 500 mg by mouth 4 times a day. 1 Active fluconazole (DIFLUCAN) 150 mg tablet TAKE 1 TABLET BY MOUTH TODAY AND 1 TABLET AT END OF ANTIBIOTIC 1 Active FLUoxetine (PROzac) 10 mg capsule Take 10 mg by mouth 1 (one) time each day. 1 Active ibuprofen (ADVIL,MOTRIN) 600 mg tablet TAKE 1 TABLET BY MOUTH EVERY 6 HOURS NEEDED FOR CRAMPING 1 Active nystatin (Nystop) 100,000 unit/gram powder 1 Active lisdexamfetamin e (VYVANSE) 30 mg capsule Take 30 mg by mouth 1 (one) time each day. 2 Active BinaxNOW COVID-19 Ag Self Test kit Use as Directed on the Package 2 Active amphetamine-dex troamphetamine (ADDERALL) 10 mg tablet Take 1 tablet by mouth in the morning and at bedtime. 2 Active amphetamine-dex troamphetamine (ADDERALL) 10 mg tablet Take 10 mg by mouth in the morning and 10 mg in the evening. 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 Her initial score at baseline was 9. Based off of her score of 9, Jose does not warrant follow up. Patient will continue to be screened throughout , at intervals no closer than two weeks, for continued surveillance and early identification of depression until delivery. Patient reports mental health history. Diagnoses include depression and anxiety. abnormality in 12/19/2020 Overview (01/27/2021): Images from the original note were not included. [facility] PATIENT--PLEASE CALL [phone] (ex 2) IF TRIAGED OR ADMITTED Care Provider: Dr. Micaela Chacon ([facility] [place]) [facility] consultants involved: Nurse coordinators: Jorge Oconnor/Jeni Naranjo; [facility]-Dr. Smyth; Pediatric Cardiology-Dr. 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 See Images or Cardiac under Chart Review for US/ ECHO/ MRI reports. Monochorionic diamniotic twin , antepar pepper 12/10/2020 Overview (01/27/2021): A+/ ANTIBODY-NEG/ IMM Plt 285 HH 12.2/35.9 Gestational diabetes 10/18/2020 Bowel sounds hyperactive 07/15/2020 Functional diarrhea 07/15/2020 Generalized abdominal pain 07/15/2020 Attention deficit disorder (ADD) without hyperac tivity 05/21/2019 Raynaud's disease 12/10/2009 Immunizations Immunization Administration Dates Next Due Influenza, unspecified 06/04/2020 Social History Tobacco Use Types Packs/Day Years Used Date Smoking Tobacco: Never Smokeless Tobacco: Never Tobacco Cessation:Counseling Given: Not Answered Alcohol Use Standard Drinks/Week Comments Never 0 (1 standard drink = 0.6 oz pur e alcohol) Comments No Sex and Gender Information Value Date Recorded Sex Assigned at Not on file Legal Sex Female 12:40 AM PST Gender Identity Not on file Sexual Orientation Not on file Last Filed Vital Signs Vital Sign Reading Time Taken Comments Blood Pressure 118/75 05/20/2021 11:00 AM REEL AND REWINDER OPERATOR Pulse 89 05/20/2021 11:00 AM REEL AND REWINDER OPERATOR Temperature 36 C (96.8 F) 05/20/2021 11:00 AM REEL AND REWINDER OPERATOR Respiratory Rate - - Oxygen Saturation - - Inhaled Oxygen Concentration - - Weight - - Height - - Body Mass Index - - Plan of Treatment Health Maintenance Due Date Last Done Comments Velscope Screening 09/26/2019 03/27/2019 Dental X-Ray: Bitewings 11/19/2021 05/20/2021 Dental Oral Exam 05/22/2022 11/19/2021, 06/2020, 11/05/2020, Additional history exists Dental Prophylaxis 08/05/2022 02/01/2022, 0 11/19/2021, 05/20/2021, Additional history exists Dental X-Ray: Full Mouth 02/01/2023 02/01/2020, 01/2019 Dental X-Ray: Panoramic 02/01/2023 02/01/20 20, 07/25/2019, 03/27/2019 Meningococcal B Vaccine Aged Out No l onger eligible based on patient's age to complete this topic Procedures Procedure Name Priority Date/Time Associated Diagnosis Comments PROPHYLAXIS - ADULT Routine 02/01/2022 1 :15 PM CDT PERIODIC ORAL EVALUATION - ESTABLISHED PATIENT Routine 11/19/2021 9:00 AM CDT PANORAMIC RADIOGRAPHIC IMAGE Routine 07/25/2019 2:00 AM REEL AND REWINDER OPERATOR ADJUNCTIVE PRE-DIAGNOSTIC TEST THAT AIDS IN DETECTION OF MUCOSAL ABNORMALITIES Routine 03/27/2019 2:00 AM CDT INTRAORAL - COMPREHENSIVE SERIES OF RADIOGRAPHIC IMAGES Routine 03/27/2019 2:00 AM CDT from Last 3 Months or Most Recently Relevant to Health Maintenance Insurance [facility] PPO
--- OUTSIDE RECORDS SUMMARY | 2024-10-08 13:48 | XMS_ITS | Data Portability ---
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 pt will try to take at bedtime with brushing teeth. declines other options. is helping endo pain. FU 1 year or prn [email or web address] Not available 08/06/2022 11:43:56 Plan of Treatment Reminders Order Date Submit Date Provider Last Modified By Organization Details Last Modified Time Details Appointments None recorded . Lab 17-hydro xyproges terone, QN, serum 2022 [facility] (Lab), [address] [place], [address], 12:53:59 dhea-sul fate, serum 2022 023 [facility] (Lab), [address] [place], [address], 3 12:53:53 estradio l, serum 2022 023 [facility] (Lab), [address] [place], [address], 3 12:53:54 FSH (follicl e-stimul ating hormone) , serum 2022 023 [facility] (Lab), [address], [place], [address], 3 12:53:57 HbA1c (hemoglo bin A1c), blood 2022 023 [facility] (Lab), [address], [place], [address], 12:53:59 lh (luteini zing hormone) , serum 2022 023 [facility] (Lab), [address], [place], [address], 3 12:53:56 progeste deborah, serum 2022 023 [facility] (Lab), [address], [place], [address], 3 12:53:54 prolacti n, serum 2022 023 [facility] (Lab), [address], [place], [address], 3 12:53:55 shbg (sex hormone- binding globulin ), serum 2022 023 [facility] (Lab), [address], [place], [address], 3 12:53:58 TSH, serum or plasma 2022 023 [facility] (Lab), [address], [place], [address], 3 12:53:57 testoste deborah free/dieter tosteron e total, ratio, serum 2022 023 [facility] (Lab), [address], [place], [address], 3 12:54:00 Referral None recorded . Procedures None recorded . Surgeries None recorded . Imaging US, breast, bilatera l, complete [address] [facility], [address], [place] [place] [address], [place], [address], 4 05:01:07 Medication Orders Slynd 4 mg (28) tablet 2023 024 [facility], [address] [place], [address], 4 12:44:08 fluconaz ole 150 mg tablet 2022 023 [address] [place] [address], [address] [place] [address], [address], 3 12:00:20 nystatin -triamci nolone 100,000 unit/gra m-0.1 % topical ointment 2022 023 [place] [address], [address] [place] [address], [address], 3 12:01:07 Bactrim DS 800 mg-160 mg tablet 2022 023 [place] [address], [address] [place] [address], [address], 3 12:01:11 Microges tin FE 1/20 (28) 1 mg-20 mcg (21)/75 mg (7) tablet 2022 023 [place] [address], [address] [place] [address], [address], 3 10:56:27 Patient TargetsNo targets recorded. Patient InstructionsNo instructions recorded. Reason for Referral None Reported. Results Created Date Observation Date Name Description Value Unit Range Abnormal Flag Note LastModifiedBy Organization Detail LastModifiedTime 08/06/1908/06/2022 IMAGE GUIDE D PAP, REFLE X HPV IF ASCUS ONLY image guided Pap, reflex HPV ASCUS only SEE RESULT S BELOW CASE REPOR T: Cytol ogy Gynec ologi ranjeet Repor t Case: [id number] Autho maurizio beckham Provi macie: Micaela Wei, MD Wang cted: 08/06 1310 Order ing Locat ion: [place] [facility] Recei lio: 08/09 0938 First Scree n: Brit Bermudez ret, CT Speci men: Scree shlomo Pap - Image d, Cervi x STATE MENT OF ADEQU ACY: Satis facto ry for evalu ation Trans forma tion zone compo nent prese nt FINAL DIAGN OSIS: Negat ann for Intra epith elial Lesio n or Wendy kelly (NIL) . Elect kendrickbarbie jeffrey broderick d by Brit Bermudez ret, CT on 2022 at 1:16 PM ----- ----- ----- ----- ----- ----- ----- ----- ----- ----- ----- ----- ----- ----- ----- ----- ----- ---- COMME NT: Note: This speci men was revie wed by a Cytot echno logis t and/o r Patho logis t (as indic ated in this repor t) after evalu ation using the Thinp rep Imagi ng Syste m. CLINI RANJEET INFOR MATIO N: Menst rual Statu s: LMP (if appli cable ): 023 Clini ranjeet Histo ry/Pr eviou s Pap: Type of Neopl cyndy (if appli cable ): Signi fican t Clini ranjeet Findi ngs: Other Histo ry: Hormo cecil (if appli cable ): PAP EDUCA ORESTES L NOTE: The Pap Test is a scree shlomo test with an inher ent false negat ann rate. Liqui d-bas ed sampl ing may decre ase, but will not elimi reji, false negat ann resul ts. A negat ann resul t does not precl ude the prese nce and/o r devel opmen t of disea se, since the prese nce of abnor mal cells in the sampl e depen ds on the locat ion of the lesio n and sampl ing techn ique. Uriel nued regul ar scree shlomo is the best metho d of cance r preve ntion . If repor simi cytol ogic findi ng do not corre late with physi ranjeet and/o r histo rical findi ngs, furth er inves tigat ion is recom deshawn d, as clini margret oneal nted. Not Available [facility] (Lab) [address], [place], [address], 08/11/2022 14:18:43 09/17/19 23 09/16/2022 CT/GC AND TRICH OMONA S VAGIN GREGORY (RRNA ), SWAB chlamydia trachomatis, PCR Negati ve negati ve Not Available [facility] (Lab) [address], [place], [address], 09/22/2022 10:58:25 09/17/19 23 09/16/2022 CT/GC AND TRICH OMONA S VAGIN GREGORY (RRNA ), SWAB neisseria gonorrhoeae, PCR Negati ve negati ve Not Available [facility] (Lab) [address], [place], [address], 09/22/2022 10:58:25 09/17/19 23 09/16/2022 CT/GC AND TRICH OMONA S VAGIN GREGORY (RRNA ), SWAB trichomonas vaginalis ribosomal RNA (rrna) Negati ve negati ve Not Available [facility] (Lab) [address], [place], [address], 09/22/2022 10:58:25 09/17/19 23 09/16/2022 CULTU RE: AEROB IC/AN AEROB IC result report SEE RESULT S BELOW abnormal Test: Cultu re: Aerob ic/An aerob ic Speci men Sourc e: Vulva Speci men Type: Micro biolo gy Speci men Speci men Date: 2022 2:00 PM Resul t Date: 023 10:20 AM Resul t Statu s: Final resul t Abnor mal: Yes Resul shemar Lab: [facility] [address] [facility] [address] Tel: CULTU RE ----- ----- ----- --- Heavy Growt h Strep tococ cus pyoge cecil (Grou p A) (Abno rmal) Light Growt h Nara l skin mayda Cultu re sampl es colle cted from sites that are proxi mal to nara l anaer obic mayda , do not provi de usefu l infor matio n. The anaer obic porti on of this cultu re has been credi simi. STAIN ----- ----- ----- --- Moder ate Gram posit ann cocci in chain s seen Not Available [facility] (Lab) [address], [place], [address], 09/22/2022 10:58:25 09/17/19 23 09/16/2022 VAGIN ITIS/ VAGIN OSIS, DNA PROBE sandy sp. detection, direct probe Negati ve negati ve Not Available [facility] (Lab) [address] [place], [address], 09/22/2022 10:58:26 09/17/19 23 09/16/2022 VAGIN ITIS/ VAGIN OSIS, DNA PROBE gardnerella vag. detection, direct probe Negati ve negati ve Not Available [facility] (Lab) [address] [place], [address], 09/22/2022 10:58:26 09/17/19 23 09/16/2022 VAGIN ITIS/ VAGIN OSIS, DNA PROBE trichomonas vag. detection, direct probe Negati ve negati ve Not Available [facility] ([facility]) [address] [place], [address], 09/22/2022 10:58:26 09/17/19 23 09/16/2022 CULTU RE: HERPE S SIMPL EX VIRUS (HSV) , REFLE X TYPIN G source LESION SCRAPI NGS Not Available [facility] (Lab) [address], [place], [address], 09/22/2022 10:58:26 09/17/19 23 09/16/2022 CULTU RE: HERPE S SIMPL EX VIRUS (HSV) , REFLE X TYPIN G hsv culture, body fluid NOT ISOLAT ED vulva Perfo rming Organ izati on Infor matio n: Site ID: CB Name: [facility] San ss: [id number] [place] [address] Dire tor: Wayne vidales Not Available [facility] (Lab) [address], [place], [address], 09/22/2022 10:58:26 03/22/20 23 03/22/2023 DHEA SULFA TE DHEA-sulfate 360 ug/dL Femal e Range s Age(y ) Range (ug/d L) 10-15 34-28 0 15-20 65-36 8 20-25 148-4 07 25-35 99-34 0 35-45 61-33 7 45-55 35-25 6 55-65 19-20 5 65-75 9-246 > 75 12-15 4 Not Available [facility] (Lab) [address], [place], [address], 03/30/2023 12:53:53 03/22/20 23 03/22/2023 ESTRA DIOL estradiol 86.8 pg/mL This assay was perfo rmed using [employer] ratio n reage nts and test kits. Value s obtai shelby with other assay metho ds or kits canno t be used inter may eably . Femal e Estra diol Range s: Folli cular phase 12.4- 233 pg/mL Ovula tion phase 41.0- 398 pg/mL Lutea l phase 22.3- 341 pg/mL Postm enopa usal< 5-138 pg/mL Healt hy Pregn ant Women 1st Trime ster1 54-32 43 pg/mL 2nd Trime ster1 561-2 1280 pg/mL 3rd Trime ster8 525-> 70270 pg/mL Not Available [facility] (Lab) [address] [place], [address], 03/30/2023 12:53:54 03/22/20 23 03/22/2023 PROGE STERO NE progesterone 9.79 NG/mL This assay was perfo rmed using [employer] ratio n reage nts and test kits. Value s obtai shelby with other assay metho ds or kits canno t be used inter may eay . Femal e Proge stero ne Range s: Folli cular phase 0.06- 0.89 ng/mL Ovula tion phase 0.12- 12.00 ng/mL Lutea l phase 1.83- 23.90 ng/mL Postm enopa usal< 0.05- 0.13 ng/mL Healt hy Pregn ant Women 1st Trime ster1 1.0-4 4.30 2nd Trime ster2 5.40- 83.30 3rd Trime ster5 8.70- 214.0 0 Not Available [facility] ([facility]) [address] [place], [address], 03/30/2023 12:53:54 03/22/20 23 03/22/2023 PROLA CTIN prolactin, total 13.30 NG/mL 4.79-2 3.30 This assay was perfo rmed using [employer] [facility] ratio n reage nts and test kits. Value s obtai shelby with other assay metho ds or kits canno t be used inter may eably . Not Available [facility] (Lab) [address] [place], [address], 03/30/2023 12:53:55 03/22/20 23 03/22/2023 LH (LUTE NIZIN G HORMO NE) LH 4.5 mIU/m L This assay was perfo rmed using [employer] ratio n reage nts and test kits. Value s obtai shelby with other assay metho ds or kits canno t be used inter [facility] . Femal es Mid-F ollic ular: 2.4-1 2.6 mIU/m L Mid-C ycle: 14.0- 95.6 mIU/m L Mid-L uteal : 1.0-1 1.4 mIU/m L Postm enopa use: 7.7-5 8.5 mIU/m L Not Available [facility] ([facility]) [address], [place], [address], 03/30/2023 12:53:56 03/22/2003/22/2023 FSH FSH 3.3 mIU/m L This assay was perfo rmed using [employer] ratio n reage nts and test kits. Value s obtai shelby with other assay metho ds or kits canno t be used inter [facility] . Femal es Folli cular : 3.5-1 2.5 mIU/m L Ovula tion: 4.7-2 1.5 mIU/m L Lutea l: 1.7-7 .7 mIU/m L Postm enopa use: 25.8- 134.8 mIU/m L Not Available [facility] (Lab) [address] [place], [address], 03/30/2023 12:53:56 03/22/2003/22/2023 TSH, REFLE X FREE T4 TSH 1.14 uIU/m L 0.30-5 .33 Not Available [facility] (Lab) [address] [place], [address], 03/30/2023 12:53:57 03/22/2003/22/2023 HUMAN SEX HORMO NE AMANDA NG GLOBU SHAMAR sex hormone binding globulin 30.9 nmole s/L 18.2-1 35.5 Not Available [facility] (Lab) [address], [place], [address], 03/30/2023 12:53:58 03/22/2003/22/2023 HEMOG LOBIN A1C hemoglobin A1C 5.5 % 0-5.6 The Ameri can Diabe dieter [employer]oc iatio n recom mends that a prima ry goal of thera py shoul d be a HBA1C of < 7% and that physi cians shoul d reeva luate the treat ment regim en in patie nts with HBA1C value s consi stent ly > 8%. <5.7% Nara l 5.7 - 6.4% Incre ased risk for diabe dieter >=6.5 % Diagn ostic of diabe dieter <7.0% Goal of thera py >8.0% Actio n sugge sted Not Available [facility] ([facility]) [address], [place], [address], 03/30/2023 12:53:59 03/22/20 23 03/22/2023 17-OH PROGE STERO NE 17-hydroxypr ogesterone, lc/MS/MS 140 NG/dL Adult Femal e Refer ence Range s for 17-Hy droxy proge stero ne: Pre-M enopa usal Mid Folli cular : 23-10 2 ng/dL Pre-M enopa usal Surge : 67-34 9 ng/dL Pre-M enopa usal Mid Lutea l: 139-4 31 ng/dL Postm enopa usal Phase : < or = 45 ng/dL Pregn tommy: First Trime ster: 78-45 7 ng/dL Secon d Trime ster: 90-35 7 ng/dL Third Trime ster: 144-5 78 ng/dL This test was devel oped and its joseph tical perfo rmanc e amanda cteri stics have been deter mined by [facility]. It has not been clear ed or appro lio by FDA. This assay has been valid ated pursu ant to the CLIA regul ation s and is used for clini ranjeet purpo ses. Perfo rming Organ izati on Infor matio n: Site ID: EZ Name: [facility] [address] [place] , Addre ss: [id number] [place] [address] Direc tor: Antonina martinez MD,Ph D,JOSE Not Available [facility] ([facility]) [address], [place], [address], 03/30/2023 12:53:59 03/22/20 23 03/22/2023 TESTO STERO NE, FREE( DIALY SIS) AND TOTAL (LC/M S/MS) testosterone , total 26 NG/dL 2-45 For addit ional infor margaret orta e refer to http: //[facility] silvestre kraft.que stdia gnost ics.c om/fa q/Tot alTming grant Eren [facility] (This link is being provi ded for infor kwesi nal/e ducat ional purpo ses only. ) Not Available [facility] ([facility]) [address], [place], [address], 03/30/2023 12:54:00 03/22/20 23 03/22/2023 TESTO STERO NE, FREE( DIALY SIS) AND TOTAL (LC/M S/MS) testosterone , free 4.2 pg/mL 0.1-6. 4 This test was devel oped and its joseph tical perfo rmanc e amanda cteri stics have been deter mined by [facility]. It has not been clear ed or appro lio by FDA. This assay has been valid ated pursu ant to the CLIA regul ation s and is used for clini ranjeet purpo ses. Perfo rming Organ izati on Vilma orosco n: Site ID: EZ Name: [facility] Chand[address] orozco , Addre ss: [id number] [place] [address] Direc tor: Antonina martinez MD,Ph D,JOSE Not Available [facility] ([facility]) [address] [place], [address], 03/30/2023 12:54:00 Result Notes None recorded. Problems Name Problem SNOMED Code Status Onset Date Resolution Date Notes Provider Name and Address Organization Details Recorded Time Pregnanc y [id number] Completed 202004/24/2021 Mignon Hernandezjesikaanabella mally dangelo, [facility] 12:55:09 Monochor ionic diamniot ic twin pregnanc y [id number] Completed [facility] rec delivery 37 weeks, ASA 162mg, q2wk u/s at [facility], echos. Antenata l testing @ 32wks, TTTS screen every 2wks Mignon Nroa bal [facility] 12:55:00 ultrasou nd scan abnormal [id number] 9109 Completed Baby A - abnormal dopplers . f/u with [facility]: [facility] 12/25 - DETENTION states dopplers were WNL x 2 Mignonchris Meyersfaith bal [facility], [facility] 12:55:00 Ultrasou nd scan abnormal [id number] Completed Baby A - hyperech oic area in LUQ of baby A - needs scan pp Mignonchris [facility]ers[facility], [facility] 12:55:00 Gestatio nal diabetes mellitus [id number] Completed 2020 Getting antenata l testing at [facility] Micaela Chacon MD [address], [place], [address], [facility] 13:50:46 Gestatio nal diabetes mellitus class A2 [id number] Completed 6u NPH q am and 38 q HS Mignon Nora bal [facility] 12:55:00 Cholesta sis of pregnanc y [id number] Completed Bile acids 12- Already seeing [facility]. Ursodiol 300mg BID Mignon [facility], [facility] 12:55:00 History of endometr iosis [id number] 0594868 Active 2021 Micaela Chacon MD [address], [place], [address], [facility] 15:28:46 Problem Notes None recorded. Procedures Surgical History Date Name Laterality Status Provider Name and Address Organization Details Recorded Time 08/06/19 23 Date of Last Pap Smear completed [facility] 04/07/2023 17:17:40 04/06/20 21 SECTION (SURG) completed Sindi Smith [facility] 04/06/2021 11:29:44 06/20/19 18 Hysteroscopy completed [facility] 09/30/2020 17:11:33 06/20/19 18 laparoscopy completed [facility] 09/30/2020 17:11:51 06/20/19 14 Dilation and Curettage completed [facility] 09/30/2020 17:11:41 06/20/19 10 tonsilectomy/michelle noids completed [facility] 03/23/2021 12:46:39 06/20/19 10 extraction of wisdom tooth completed [facility] 03/23/2021 12:46:56 Dilation and Curettage completed [facility] 07/07/2023 12:33:04 Hysteroscopy completed [facility] 07/07/2023 12:33:04 Imaging Results None recorded. Procedure Notes None recorded. Medical Equipment None Reported. Allergies Allergen ID Allergen Name Allergen Category Reaction Reaction Severity Criticality Documentation Date Start Date Code Code System Note Provider Name and Address Organization Details Recorded Time 80832 Tamiflu medicatio n Not available Not available Not available 09/30/2020 67268 7 RxNorm Nalini [facility], [facility] 1 16:35:55 48397 lammago ne medicatio n Not available Not available Not available 03/22/2023 70831 RxNorm Lindsey [facility], [facility] 3 10:56:08 Medications Name Sig Start Date Stop Date Status Note LastModified by Organization Details LastModified Time doxycycline hyclate 100 mg capsule TK 1 C PO D WITH A FULL MEAL 09/30 completed Not Available Not Available Not Available trazodone 50 mg tablet TAKE 1 TABLET BY MOUTH EVERY DAY AT BEDTIME active Not Available Not Available No t Available nystatin 100,000 unit/gram topical ointment MIX WITH TRIAMCINO LONE OINTMENT THEN APPLY OINTMENT TOPICALLY TO AFFECTED AREA TWICE DAILY FOR 7 DAYS 09/23 completed Not Available Not Available Not Available fluconazole 150 mg tablet TAKE ONE TABLET BY MOUTH NOW, REPEAT IN 7 DAYS 09/23 completed Not Available Not Available Not Available hydrocodone 5 mg-acetamin ophen 325 mg tablet TAKE 1 TABLET BY MOUTH EVERY 4 TO 5 HOURS NEEDED FOR MODERATE PAIN 05/19 completed Not Available Not Available Not Available Nystop 100,000 unit/gram topical powder APPLY TO THE AFFECTED AREA(S) BY TOPICAL ROUTE 2 TIMES PER DAY 05/11 completed Not Available Not Available Not Available prednisone 20 mg tablet TAKE 1 TABLET BY MOUTH ONCE DAILY 03/22 completed Not Available Not Available Not Available dextroamphe tamine-amph etamine 10 mg tablet TAKE 1 TABLET BY MOUTH TWICE DAILY. ADMINISTE R DOSES AT LEAST 4-6 HOURS APART 08/06 completed Not Available Not Available Not Available spironolact one 100 mg tablet TAKE 1 TABLET BY MOUTH DAILY 09/30 completed Not Available Not Available Not Available diphenoxyla te-atropine 2.5 mg-0.025 mg tablet 09/16 completed Not Available Not Available Not Available metronidazo le 500 mg tablet 05/11 completed Not Available Not Available Not Available prochlorper azine maleate 10 mg tablet TAKE 1 TABLET BY MOUTH EVERY 8 HOURS NEEDED FOR NAUSEA AND VOMITING 03/22 completed Not Available Not Available Not Available sulfamethox azole 800 mg-trimetho prim 160 mg tablet TAKE 1 TABLET BY MOUTH EVERY 12 HOURS FOR 7 DAYS 09/23 completed Not Available Not Available Not Available peg-electro lyte solution 420 gram oral solution TAKE DIRECTED BY OFFICE 09/16 completed Not Available Not Available Not Available lamotrigine 25 mg tablet TAKE 1 TABLET BY MOUTH ONCE DAILY FOR 14 DAYS 03/22 completed Not Available Not Available Not Available pantoprazol e 20 mg tablet,justino yed release TAKE 1 TABLET BY MOUTH IN THE MORNING 03/22 completed Not Available Not Available Not Available dextroamphe tamine-amph etamine 30 mg tablet TAKE 1 TABLET BY MOUTH TWICE DAILY (ADMINIST ER DOSES AT LEAST 4-6 HOURS APART) active Not Available Not Available No t Available nystatin-tr iamcinolone 100,000 unit/gram-0 .1 % topical ointment Apply by topical route for 7 days. 09/23 completed Not Available Not Available Not Available oxycodone-a cetaminophe n 5 mg-325 mg tablet TAKE 1 TABLET BY MOUTH EVERY 6 HOURS NEEDED 05/19 completed Not Available Not Available Not Available amoxicillin 875 mg tablet 05/11 completed Not Available Not Available Not Available famotidine 20 mg tablet TAKE 1 TABLET BY MOUTH TWICE DAILY 05/11 completed Not Available Not Available Not Available dicyclomine 20 mg tablet TAKE 1 TABLET BY MOUTH TWICE DAILY 09/16 completed Not Available Not Available Not Available cephalexin 500 mg capsule TAKE 1 CAPSULE BY MOUTH FOUR TIMES DAILY FOR 7 DAYS 05/19 completed Not Available Not Available Not Available pantoprazol e 40 mg tablet,justino yed release TAKE 1 TABLET BY MOUTH ONCE DAILY 09/16 completed Not Available Not Available Not Available triamcinolo ne acetonide 0.1 % topical ointment MIX WITH NYSTATIN OINTMENT AND APPLY OINTMENT TOPICALLY TO AFFECTED AREA TWICE DAILY FOR 7 DAYS 09/23 completed Not Available Not Available Not Available dextroamphe tamine-amph etamine 20 mg tablet TAKE 1 TABLET BY MOUTH TWICE DAILY ADMINISTE R DOSES AT LEAST 4-6 HOURS APART 03/22 completed Not Available Not Available Not Available promethazin e 25 mg tablet TAKE 1/2 (ONE-HALF ) TABLET BY MOUTH EVERY 6 HOURS NEEDED FOR NAUSEA 09/16 completed Not Available Not Available Not Available ursodiol 300 mg capsule TAKE 1 CAPSULE BY MOUTH TWICE DAILY 05/19 completed Not Available Not Available Not Available Humulin N NPH U-100 Insulin (isophane susp) 100 unit/mL subcutaneou s INJECT 6 UNITS IN THE MORNING AND 34 UNITS AT BEDTIME 04/17 completed Not Available Not Available Not Available dextroamphe tamine-amph etamine 15 mg tablet TAKE 1 TABLET BY MOUTH TWICE A DAY, ADMINISTE R DOSES AT LEAST 4-6 HOURS APART. 03/22 completed Not Available Not Available Not Available fluoxetine 10 mg capsule TAKE 1 CAPSULE BY MOUTH EVERY DAY 05/11 completed Not Available Not Available Not Available docusate sodium 100 mg capsule TAKE ONE CAPSULE BY MOUTH TWICE DAILY NEEDED FOR CONSTIPAT ION 04/17 completed Not Available Not Available Not Available hydroxyzine HCl 25 mg tablet TAKE 1 TABLET BY MOUTH THREE TIMES DAILY NEEDED FOR ANXIETY active Not Available Not Available No t Available ibuprofen 600 mg tablet TAKE 1 TABLET BY MOUTH EVERY 6 HOURS NEEDED FOR CRAMPING 05/11 completed Not Available Not Available Not Available methylpredn isolone 4 mg tablets in a dose pack TAKE DIRECTED 07/07 completed Not Available Not Available Not Available ondansetron 4 mg disintegrat ing tablet 05/11 completed Not Available Not Available Not Available fluoxetine 20 mg capsule TAKE 1 CAPSULE BY MOUTH ONCE DAILY 05/11 completed Not Available Not Available Not Available sertraline 50 mg tablet TAKE 1 TABLET BY MOUTH ONCE DAILY 09/16 completed Not Available Not Available Not Available amoxicillin 875 mg-potassiu m clavulanate 125 mg tablet TAKE 1 TABLET BY MOUTH TWICE DAILY FOR 7 DAYS 03/22 completed Not Available Not Available Not Available azithromyci n 500 mg tablet TAKE 1 TABLET BY MOUTH ONCE DAILY FOR 5 DAYS 05/11 completed Not Available Not Available Not Available Tri-Sprinte c (28) 0.18 mg(7)/0.215 mg(7)/0.25 mg(7)-0.035 mg tablet TAKE 1 TABLET BY MOUTH DAILY 09/30 completed Not Available Not Available Not Available mesalamine ER 500 mg capsule,ext ended release 03/22 completed Not Available Not Available Not Available 05/11 completed Not Available Not Available Not Available Vyvanse 30 mg capsule TAKE 1 CAPSULE BY MOUTH EVERY MORNING 05/11 completed Not Available Not Available Not Available butalbital- acetaminoph en-caffeine 50 mg-300 mg-40 mg capsule TAKE ONE CAPSULE BY MOUTH EVERY 4 TO 6 HOURS NEEDED. NOT TO EXCEED 6 CAPSULES IN 24 HOURS 05/19 completed Not Available Not Available Not Available OneTouch Verio test strips USE TO TEST FOUR TIMES DAILY - FASTING EVERY MORNING AND 1 HOUR AFTER MEALS 04/17 completed Not Available Not Available Not Available lurasidone 20 mg tablet TAKE 1 TABLET BY MOUTH ONCE DAILY. MUST TAKE WITH FOOD (AT LEAST 350 CALORIES) active Not Available Not Available No t Available Rick Fe 07/09 (28) 1 mg-20 mcg (21)/75 mg (7) tablet Take 1 tablet every day by oral route. 03/22 completed Not Available Not Available Not Available OneTouch Delica Plus Lancet 33 gauge USE TO TEST FOUR TIMES DAILY 04/17 completed Not Available Not Available Not Available Slynd 4 mg (28) tablet TAKE 1 TABLET BY MOUTH ONCE DAILY active Not Available Not Available No t Available OneTouch Verio Reflect Meter USE DIRECTED 04/17 completed Not Available Not Available Not Available BinaxNOW COVID-19 Ag Self Test kit Use as Directed on the Package 03/16 completed Not Available Not Available Not Available Vitals Date Recorded Body height Body mass index (BMI) Body weight Systolic blood pressure Diastolic blood pressure Provider Name and Address Organization Details Last Updated DateTime 08/06/2022 165.1 cm 41.6 kg/m2 193542.0 9 g 110 mm[Hg] 71 mm[Hg] Nalini Estrella [facility] 11:11:21 Date Recorded Body height Systolic blood pressure Diastolic blood pressure Provider Name and Address Organization Details Last Updated DateTime 09/16/2022 165.1 cm 108 mm[Hg] 74 mm[Hg] Lindsey Pena [facility] 09/16/2022 09:55:26 Date Recorded Body height Systolic blood pressure Diastolic blood pressure Provider Name and Address Organization Details Last Updated DateTime 09/23/2022 165.1 cm 119 mm[Hg] 81 mm[Hg] [facility] 09/23/2022 11:59:51 Date Recorded Body height Body mass index (BMI) Body weight Systolic blood pressure Diastolic blood pressure Provider Name and Address Organization Details Last Updated DateTime 03/22/2023 165.1 cm 41.6 kg/m2 927621.0 9 g 117 mm[Hg] 82 mm[Hg] Lindsey [facility] 3 10:55:51 Date Recorded Body height Body mass index (BMI) Body weight Systolic blood pressure Diastolic blood pressure Provider Name and Address Organization Details Last Updated DateTime 07/07/2023 165.1 cm 40.4 kg/m2 351737.9 5 g 136 mm[Hg] 84 mm[Hg] Barbie Amanda [facility] 12:32:57 Social History Question Answer Notes LastModified by Organizat ion Details LastModified Time Tobacco Smoking Status Never Smoker [facility] 03/22/2023 10:15:55 Do You Have An Advance Directive? No Information n ot available 01/05/2021 What Is Your Level Of Alcohol Consumption? None Information not available 09/16/2022 Are You Blind Or Do You Have Difficulty Seeing? No Information n ot available 01/05/2021 What Is Your Level Of Caffeine Consumption? Occasional Information not available 01/05/2021 How Much Tobacco Do You Chew? None Information not available 01/05/2021 In The 14 Days Before Symptom Onset, Have You Had Close Contact With A Laboratory-confirm ed COVID-19 While That Case Was Ill? No Information n ot available 01/05/2021 In The 14 Days Before Symptom Onset, Have You Had Close Contact With A Person Who Is Under Investigation For COVID-19 While That Person Was Ill? No Information not available 01/19/2021 Have You Been To An Area Known To Be High Risk For COVID-19? No Information not available 01/05/2021 Are You Deaf Or Do You Have Serious Difficulty Hearing? No Information not available 01/05/2021 What Type Of Diet Are You Following? REGULAR Information n ot available 01/05/2021 What Is The Highest Grade Or Level Of School You Have Completed Or The Highest Degree You Have Received? 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 No Information not available 01/05/2021 Do You Use Protection During Sex? No Information not available 09/16/2022 Do You Use Your Seat Belt Or Car Seat Routinely? Yes Information not available 01/05/2021 Do You Have Smoke And Carbon Monoxide Detectors In Your Home? Yes Information not available 01/05/2021 How Much Tobacco Do You Smoke? No Information not available 01/05/2021 Do You Feel Stressed (tense, Restless, Nervous, Or Anxious, Or Unable To Sleep At Night)? [id number] Information not available 09/16/2022 Do You Use Any Illicit Or Recreational Drugs? No [email or web address] Information not available 01/19/2021 Do You Use Sunscreen Routinely? Yes Information not available 09/16/2022 Has Tobacco Cessation Counseling Been Provided? No [email or web address] Information not available 03/22/2023 How Many Years Have You Smoked Tobacco? 0 Information not available 09/23/2022 Have You Used IV Drugs? No Information not available 01/05/2021 Do You Or Have You Ever Used Any Other Forms Of Tobacco Or Nicotine? No [email or web address] Information not available 03/22/2023 Sex: Unknown Functional Status Question Answer Note LastModified by Organizat ion Details LastModified Time Do you have difficulty walking or climbing stairs? No [email or web address] Information not available 03/22/2023 Are you able to walk? YESWOREST Information not available 01/05/2021 Are you able to care for yourself? Yes [email or web address] Information not available 03/22/2023 Do you have difficulty dressing or bathing? No Information not available 03/22/2023 What is your exercise level? None Information not available 01/05/2021 Mental Status None recorded. Family History Relationship Description Onset Age of this Age Resolved Age Notes LastModified by Organization Details LastModified Time Mother Anxiety disorder [email or web address] Not available 2020 18:28:44 Mother Depressive disorder [email or web address] Not available 2020 18:28:56 Mother Headache [email or web address] Not availabl e 07/07/2023 11:44:00 Father Anxiety disorder Not available 2020 09:53:41 Sister Anxiety disorder [email or web address] Not available 2020 18:28:44 Sister Depressive disorder Not available 2020 09:53:41 Sister Headache [email or web address] Not availabl e 07/07/2023 11:44:01 Maternal Grandmother Anxiety disorder [email or web address] Not available 2020 18:28:44 Maternal Grandmother Headache [email or web address] Not available 11:44:01 Maternal Grandmother Depressive disorder Not available 2020 09:53:41 Maternal Grandmother Substance abuse Not available 2020 09:53:41 Maternal Uncle Substance abuse Not available 2020 09:53:41 Maternal Aunt Substance abuse Not available 2020 09:53:41 Unspecified Relation Heart disease Not available 2020 09:53:41 Medical History Condition Response Allergies (Food, seasonal, environmental ) N Other N Drug/Latex Allergies/Reactions N Blood Transfusion N Breast Cancer N Dermatologic Disorders N Lung Disease N Defects or Inherited Disease N Breast Problem N Gestational Diabetes Y Hematologic disorders N Anesthesia Complications N History of STI N Deep Vein Thrombosis N Polycystic ovary syndrome N Anxiety Disorder Y Autoimmune disease N Arthritis N Polyps N Infertility N Acid Reflux (GERD) N History of abnormal pap N Cancer N Varicosities N Stroke N Neurologic/Epilepsy N Endometriosis Y High Cholesterol N Fibromyalgia N Headaches Y Kidney Disease N Heart Problems N Thyroid Problems N Kidney or Bladder Problems Y GI Problems N Eating Disorder N Anemia Y Art (IVF or FET) N Psychiatric Illness Y Ovarian Cancer N Diabetes Y Pulmonary (TB, Asthma) N Hepatitis/Liver Disease N No Past Medical History N Eczema N Urinary Tract Infection N Abuse/Domestic Violence N Asthma N Trauma/Violence N Depression/ depression Y Heart Disease N Pre-Eclampsia N Hypertension N Osteoporosis N Thrombophilias N Gynecological History Statement/Question Response Flow Heavy Date of LMP 06/08/2023 On BCP's at Conception? Y N Was last menstrual period normal Y STIs/STDs N HPV Vaccine N Duration of Flow (days) 8 Current Control Method None Sexually Active? N Date of Last Pap Smear 08/06/2022 Sexual Problems? N Desired Control Method None LMP Approximate N Obstetrics History GPAL:G 2 P 0 0 1 2 Type Value Multiple Births 1 Spontaneous 1 Living 2 Total 2 Past Encounters Encounter ID Performer Location Encounter Start Date Encounter Closed Date Diagnosis/Indication Diagnosis SNOMED-CT Code Diagnosis ICD10 Code Diagnosis Note [id number] Micaela Chacon MD [place] [address],[place] [address] 09/30/2020 16:21:30 09/30/2020 23:22:28 Routine care 818896817 Z34.91 Monochorio venu diamniotic twin 457195119 O30.009 [id number] [facility] [address],[place] [address] 09/30/2020 16:21:58 09/30/2020 23:45:16 [id number] [address],[place] [address] 10/13/2020 16:01:28 10/13/2020 17:06:30 Monochorionic diamniotic twin 916888879 O30.031 Z3A.12 [id number] Micaela Chacon MD [place] [address],[place] [address] 10/13/2020 16:01:53 10/15/2020 00:06:31 Monochorionic diamniotic twin 498385571 O30.031 Z3A.12 [id number] Micaela Chacon MD [place] [address],[place] [address] 11/10/2020 11:16:42 11/10/2020 14:25:22 Monochorionic diamniotic twin 172487675 O30.[id number] [facility] [address],[place] [address] 12/09/2020 11:51:07 12/09/2020 13:16:04 Reduced movement 408650298 O36.8199 Pt here for FHT check r/t decreased movement. Doppler on baby A on maternal left and FHR was 143-147bpm . Doppler on baby B on maternal right and FHR was 130-135bpm . Pt reassured about early GA and not feeling consistent movement yet at this time. Pt will keep MFM appt tomorrow for Level II u/s. Pt to call with any further concerns. Pt verbalized understand ing. SUELLEN amezcua [id number] Micaela Chacon MD [place] [address],[place] [address] 12/15/2020 12:11:14 12/15/2020 14:25:40 Monochorionic diamniotic twin 415581007 O30.031 Z3A.12 [id number] Micaela Chacon MD [place] [address],[place] [address] 12/23/2020 11:41:27 12/23/2020 12:23:57 Monochorionic diamniotic twin 469478004 O30.031 Z3A.12 [id number] Herminio Gandara MD [place] [address],[place] [address] 01/05/2021 09:41:36 01/05/2021 22:20:36 Routine care 968077971 Z34.[id number] [facility] [address],[place] [address] 01/13/2021 14:58:50 01/13/2021 15:56:32 Headache 84529193 R51.9 Pt here for BP check. BP 108/73. Per AD ok to monitor sxs and can send out Fioricet for ZAPATA and to get massage. Pt informed to monitor sxs and Fioricet sent to [facility] in [place] [id number] Aminah Neojoleen [place] [address],[place] [address] 01/19/2021 09:32:30 01/20/2021 16:19:56 [id number] Micaela Chacon MD [place] [address],[place] [address] 02/02/2021 10:52:33 02/02/2021 11:27:01 Routine care 025287136 Z34.91 Monochorio venu diamniotic twin 962369253 O30.031 Z3A.12 [id number] Herminio Gandara MD [place] [address],[place] [address] 02/06/2021 09:01:04 02/10/2021 22:43:32 [id number] Coco Renteria [place] [address],[place] [address] 02/09/2021 13:53:15 02/09/2021 15:07:37 Gestational diabetes mellitus class A1 78205055 O24.410 Pt here for diet teaching. Went over ideal ranges for FBS and pp BS. Went over carb counting and carb ranges for each meal/snack . Gave ideas for foods to eat for meals/snac ks. Discussed drink options and to avoid soda and juice. Told pt she can go online to ADA for meal options or to look up low carb meal recipes online for ideas as well. Pts glucometer was just called out this morning and hasn't picked up supplies yet. Demonstrat ed to pt how to check BS with our in office glucometer . Told pt to start checking BS QID and adjusting diet to follow low carb diet to try to keep BS within normal range. Pt aware if sugars aren't controlled by diet we would discuss starting insulin. Went over NST schedule with pt and importance of keeping these appts and checking BS for her and baby's health. Pt is getting testing at [facility] weekly starting on 02/27/2021 . Pts questions were answered and pt verbalized understand ing. SUELLEN amezcua [id number] Micaela Chacon MD [place] [address] [address] 02/16/2021 16:45:19 02/17/2021 15:45:45 Gestational diabetes mellitus class A2 89404077 O24.414 Per AD pt needs to start on 10u NPH @ HS. Insulin teaching completed with pt. Went over insulin syringe with pt and how to interpret how many units she needs. Demonstrat ed to pt how to draw up 10u of insulin. Pt properly demonstrat ed back to me how to draw up 10u of insulin and also had pt practice drawing up 13u of insulin in case we increase dose. Pt aware to clean top of vial and leg with alcohol swab prior to drawing up/adminis tering insulin. Pt informed how to give SQ injection. Rx sent to [facility]. AD told pt to call us in 1 wk. Told pt since we are closed on Labor Day she can call us this Tuesday if her sugars don't look like they have improved. Gave hypoglycem ia precaution s. Pts questions were answered and pt verbalized understand ing. goldie RN Monochorio venu diamniotic twin [id number] O30.031 Z3A.12 [id number] Coco Renteria [place] [address] [address] 02/16/2021 17:57:31 02/16/2021 18:11:49 Gestational diabetes mellitus class A2 09784683 O24.414 Per AD pt needs to start on 10u NPH @ HS. Insulin teaching completed with pt. Went over insulin syringe with pt and how to interpret how many units she needs. Demonstrat ed to pt how to draw up 10u of insulin. Pt properly demonstrat ed back to me how to draw up 10u of insulin and also had pt practice drawing up 13u of insulin in case we increase dose. Pt aware to clean top of vial and leg with alcohol swab prior to drawing up/adminis tering insulin. Pt informed how to give SQ injection. Rx sent to [facility]. AD told pt to call us in 1 wk. Told pt since we are closed on Labor Day she can call us this Tuesday if her sugars don't look like they have improved. Gave hypoglycem ia precaution s. Pts questions were answered [place] [id number] Micaela Chacon MD [place] [address],[place] [address] 03/02/2021 11:29:50 03/02/2021 12:36:52 Monochorionic diamniotic twin 773983261 O30.031 Z3A.12 Gestationa l diabetes mellitus class A2 40609985 O24.414 Per AD pt needs to start on 10u NPH @ HS. Insulin teaching completed with pt. Went over insulin syringe with pt and how to interpret how many units she needs. Demonstrat ed to pt how to draw up 10u of insulin. Pt properly demonstrat ed back to me how to draw up 10u of insulin and also had pt practice drawing up 13u of insulin in case we increase dose. Pt aware to clean top of vial and leg with alcohol swab prior to drawing up/adminis tering insulin. Pt informed how to give SQ injection. Rx sent to [facility] in [place]. AD told pt to call us in 1 wk. Told pt since we are closed on Labor Day she can call us this Tuesday if her sugars don't look like they have improved. Gave hypoglycem ia precaution s. Pts questions were answered and [place] [id number] Micaela Chacon MD [place] [address],[place] [address] 03/09/2021 12:26:25 03/09/2021 14:17:32 Monochorionic diamniotic twin 345946354 O30.031 Z3A.12 Gestationa l diabetes mellitus class A2 96987862 O24.414 Cholestasi s of 126658123 O26.619 [id number] Micaela Chacon MD [place] [address],[place] [address] 03/16/2021 10:57:58 03/17/2021 11:23:20 Monochorionic diamniotic twin 958322988 O30.031 Z3A.12 Gestationa l diabetes mellitus class A2 78025555 O24.414 Cholestasi s of 752755987 O26.619 [id number] Micaela Chacon MD [place] [address],[place] [address] 03/23/2021 12:29:26 03/23/2021 13:53:58 Monochorionic diamniotic twin 077878479 O30.031 Z3A.12 Gestationa l diabetes mellitus class A2 33517967 O24.414 [id number] Micaela Chacon MD [place] [address],[place] [address] 03/30/2021 10:28:46 03/30/2021 11:11:49 Gestational diabetes mellitus class A2 21635344 O24.414 Cholestasi s of 379391200 O26.619 Monochorio venu diamniotic twin 015812209 O30.031 Z3A.12 [id number] Micaela Chacon MD [place] [address],[place] [address] 04/17/2021 12:34:39 04/17/2021 13:25:10 Postoperative wound cellulitis 400390327 L76.82 Maternal p ostpartum depression screening 2067796868 25666 Z13.32 [id number] Micaela Chacon MD [place] [address],[place] [address] 05/01/2021 11:44:05 05/01/2021 14:19:48 depression 67456647 F53.0 [id number] Micaela Chacon MD [place] [address],[place] [address] 05/19/2021 14:00:03 05/19/2021 16:29:04 Past history of gestational diabetes mellitus 399598533 Z86.32 Initial pr escription of oral contraception 998515073 Z30.011 depression 58 845866 F53.0 [id number] Micaela Chacon MD [place] [address],[place] [address] 05/11/2022 14:35:54 05/12/2022 16:39:42 Pain in pelvis 37762939 R10.2 History of endometriosis 5153360920 3009228 Z87.42 Initial pr escription of oral contraception 103409546 Z30.011 Colitis 52281723 K52.9 [id number] Micaela Chacon MD [place] [address],[place] [address] 08/06/2022 10:51:19 08/06/2022 11:55:40 Gynecologic examination 69448411 Z01.419 History of endometriosis 2772687321 5865275 Z87.42 Surveillan ce of oral contraception 310209202 Z30.41 Initial pr escription of oral contraception 472663036 Z30.011 [id number] JULIET Chow [place] [address],[place] [address] 09/16/2022 09:37:44 09/16/2022 10:37:26 Abscess of vulva 99190447 N76.4 multiple furuncles, vulvar irritation , and yeast appearing d/c noted on examvagini tis panel sent, HSV PCR sent, cx sent, and gc/ct/tric h testing sentvulvar care guidelines discussed, d/c use of scented products - water/fing ers to cleanse the vulva, sleep with no underwear, free and clear laundry products and soaps, cotton underwear onlyRx sent, R/B/A discussedt o notify the office with any worsening symptoms, ED precaution s discussedR TC in 1 week for f/u Time spent in visit is a total of 25 mins with at least 50% of visit consisting of counseling and review of plan of care. Vaginitis 54101895 N76.0 Vulval irritation 701253 003 N90.89 Contact dermatitis 72934 004 L25.9 Venereal d isease screening 975059923 Z11.3 [id number] JULIET Chow [place] [address],[place] [address] 09/23/2022 11:53:07 09/23/2022 12:52:15 Vulval irritation 771835594 N90.89 reviewed resultssym ptoms have completely resolvedfe eling so much betternorm al exam todayto notify the office if symptoms returnRTC for WWE when due or sooner if needed Time spent in visit is a total of 15 mins with at least 50% of visit consisting of counseling and review of plan of care. [id number] JULIET Chow [place] [address] [address] 03/22/2023 10:15:48 03/22/2023 12:22:51 Irregular periods 69028921 N92.6 Detailed hx discussed and obtained todaywe agreed to update labs for further evaluation BC options discussed with patientwe discussed possibilit y of PCOS, discussed PCOS in-depthen couraged regular exercise, healthy eating, etcshe will return to review labs in 2 weeks Time spent in visit is a total of 30 mins with at least 50% of visit consisting of counseling and review of plan of care. Hirsutism 589927154 L68. 0 [id number] JULIET Chow [place] [address] [address] 07/07/2023 11:43:47 07/07/2023 14:16:30 Contraception care management 418147637 Z30.9 Pain of breast 19262643 N64.4 bilateral breast u/s ordered - encouraged to scheduleRe viewed recent labs/perio d hxwould like to start slynd - r/b/a reviewedrx sentmed check in 4 months Time spent in visit is a total of 20 mins with at least 50% of visit consisting of counseling and review of plan of care. Health Concerns Section Related Observation LastModified by Organization Detai ls LastModified Time None Recorded Concern Status LastModified by Organization Details LastModified Time None Recorded Advance Directives Directive N: Payers Encounter Date Sequence Insurance Name Policy Number Policy Membreno Covered Member ID Membreno Member ID Guarantor Name 08/06/2022 1 [facility] (MEDICARE REPLACEMENT/ ADVANTAGE - HMO) Jose Britt [id number] Jose Britt 09/16/2022 1 [facility] (MEDICARE REPLACEMENT/ ADVANTAGE - HMO) Jose Britt [id number] Jose Britt 09/23/2022 1 [facility] (MEDICARE REPLACEMENT/ ADVANTAGE - HMO) Jose Britt [id number] Jose Britt 03/22/2023 1 [facility] (MEDICARE REPLACEMENT/ ADVANTAGE - HMO) Jose Britt [id number] Jose Britt 07/07/2023 1 [facility] (MEDICARE REPLACEMENT/ ADVANTAGE - HMO) Jose Britt [id number] Jose Britt Notes Date Note Type Note Provider Name and Address Organization Details Recorded Time 3 text/html Patient is a 26yo who presents for an annual exam. Restarted OCP in APR for endo. 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 she doesn't want to do anything else, she wants to work on getting better at remembering. Twins 16mo and doing great. last pap-08/2020 sexually active-n contraception-ocp, abstinence seatbelts-y exercise-y depression-denies domestic violence-denies tobacco-n concerns- Micaela Chacon MD [address], [place], [address], [facility] 08/06/2022 11:44:14 3 text/html 27yoPresents for evaluation of vulvar burning, itching, painsymptoms mostly on right side, has noticed multiple in-grown hairs after shavinghurts when clothing touches areastarted using a new scented soap recentlyNot SA x 3 years, on OCPdenies any d/c, pelvic pain, n/v/f, or flu-like symptoms JULIET Chow [address], [place], [address], [facility] 09/16/2022 10:27:50 3 text/html 27yopresents for f/u on vulvar irritationsymptoms have completely resolvedfeeling so much betterno current issues JULIET Chow [address], [place], [address], [facility] 09/23/2022 12:45:39 3 text/html 27yopresents to discuss irregular cycles, acne, and unwanted hair growthperiods every 1-3 monthsacne worseningunwanted hair growth on chin and neckweight gain over the past few monthsBC - withdrawal, previously on OCPrecently diagnosed with bipolar disorder and started on lurasidoneshe has questions about PCOS today JULIET Chow [address], [place], [address], [facility] 03/22/2023 12:17:38 4 text/html 27yopresents for evaluation of bilateral breast painpresent for 2 weekstenderness near bilateral nippleshas noticed some redness that comes and goes, mostly with the cold. None todaydrinks caffeinewould like to discuss BC - using condoms currently JULIET Chow [address], [place], [address], [facility] 07/07/2023 14:10:36 OBGyn Episode Ob Episode Information Episode Created Date Number of Fetuses Patient Bloodtype Patient rh Status Prepregnancy Weight lbs Domestic Partner Domestic Partner Phone Father Name [employer] B[employer] Controller Status 10/01/19 21 2 A Positive 199 CLOSED Fetus Data First Name Last Name Admitted to NICU Weight (g) Sex Living Outcome Pediatric Complications Fetus ID Race Codes Race Delivery Type 2778.25 1 M false Full Term 9041 Primary 2778.25 1 M false Full Term 9042 Primary Problems Problem Notes Chacon pt! Level II & NST [facility] 03/13 U/S & NST Problem Name Start Date End Date Resolution Snomed Code Not e ultrasound scan abnormal SELFRESOLVED [id number] Baby A - abn ormal dopplers. f/u with [facility] 12/25 - DETENTION states dopplers were WNL x 2 Monochorionic diamniotic twin [id number] [facility] rec deliver y 37 weeks, ASA 162mg, q2wk u/s at [facility] [facility], echos. testing @ 32wks, TTTS screen every 2wks Ultrasound scan abnormal [id number] Baby A - hyperechoic area in LUQ of baby A - needs scan pp Gestational diabetes mellitus class A2 [id number] 6u NPH q a m and 38 q HS Cholestasis of [id number] Bile acids 12- Already seeing MFM. Ursodiol 300mg BID Remigio Calculation Initial Remigio Date Initial Exam Date Initial Exam Provider Initial Ultrasound Date Last Menstrual Period Date Ultra Sound Weeks Gestation 04/25/2021 09/30/2020 09/10/2020 06/25/2020 7 Eighteen To Twenty Week Remigio Update Ultra Sound Date Fundal Height At Umbil Quickening Date Ultra Sound Latest Weeks Gestation Final Remigio Confirmed By Final Remigio Confirmed Date Final Remigio Date Ultra Sound Latest Days Gestation 0 [email or web address] 09/30/2020 04/25/20 21 0 Pre- Flowsheet Flowsheet Date 09/30/2020 Montalvo Score Blood Edema Fundus Height Fundus Units Glucose Ketones Leukocytes Nitrite Labor Signs Protein Cervic Dilation Cervic Effacement Cervic Station neg none trace Type Weight in lbs Pre/Post Dialysis Refused Weight 199.432819097538 BP Diastolic BP Location Tested BP Systolic BP Type 82 127 Fetus Heart Rate Present Fetus Movement A No Comments Jenni is a 25yo at 10.3 with mono/di twins transfer of care. REMIGIO 04/25 by US 2 weeks ago. Records reviewed, Pap NILM 08/2020. Needs Hep C and trich today. Discussed screening for aneupploidy, pt wants NIPT. Complains of RLS and ZAPATA. ZAPATA once per day, relieved with sleep. tylenol does help, will increase to ES tylenol and increase hydration. Also stopped caffeine, discussed one small caffeinated beverage per day ok. US 1-2 weeks NT. MFM consult. Discussed risks in twin pregnancies, lizeth with monochorionic. Flowsheet Date 09/30/2020 Montalvo Score Blood Edema Fundus Height Fundus Units Glucose Ketones Leukocytes Nitrite Labor Signs Protein Cervic Dilation Cervic Effacement Cervic Station Type Weight in lbs Pre/Post Dialysis Refused BP Diastolic BP Location Tested BP Systolic BP Type Fetus Heart Rate Present Fetus Movement Comments Flowsheet Date 10/13/2020 Montalvo Score Blood Edema Fundus Height Fundus Units Glucose Ketones Leukocytes Nitrite Labor Signs Protein Cervic Dilation Cervic Effacement Cervic Station Type Weight in lbs Pre/Post Dialysis Refused BP Diastolic BP Location Tested BP Systolic BP Type Fetus Heart Rate Present Fetus Movement Comments Flowsheet Date 10/13/2020 Montalvo Score Blood Edema Fundus Height Fundus Units Glucose Ketones Leukocytes Nitrite Labor Signs Protein Cervic Dilation Cervic Effacement Cervic Station neg none trace Type Weight in lbs Pre/Post Dialysis Refused Weight 201.065245036574 BP Diastolic BP Location Tested BP Systolic BP Type 77 124 Fetus Heart Rate Present A 155 B 165 Fetus Movement A No B No Comments Doing very well. Nausea a lo t still. Allergies bad- discussed OTCs for both. ZAPATA and RLS both a lot better. US today good progression, normal NT. [facility] consult and anatomy US at 20 weeks. Discussed twin risks again, lizeth given monochorionic. Questions answered. Precautions given. Flowsheet Date 11/10/2020 Montalvo Score Blood Edema Fundus Height Fundus Units Glucose Ketones Leukocytes Nitrite Labor Signs Protein Cervic Dilation Cervic Effacement Cervic Station neg none trace Type Weight in lbs Pre/Post Dialysis Refused Weight 212.59751338458 BP Diastolic BP Location Tested BP Systolic BP Type 75 112 Fetus Heart Rate Present A 140 B 155 Fetus Movement A No B No Comments Doing well overall. Nausea a nd allergies much improved. Having tension ZAPATA, discussed massage and relaxation techniques. Will start ASA. To [facility] for consult and anatomy in 2-3 weeks. After 20 weeks will do visits every 2 weeks. Flowsheet Date 12/09/2020 Montalvo Score Blood Edema Fundus Height Fundus Units Glucose Ketones Leukocytes Nitrite Labor Signs Protein Cervic Dilation Cervic Effacement Cervic Station Type Weight in lbs Pre/Post Dialysis Refused BP Diastolic BP Location Tested BP Systolic BP Type Fetus Heart Rate Present Fetus Movement Comments Flowsheet Date 12/15/2020 Montalvo Score Blood Edema Fundus Height Fundus Units Glucose Ketones Leukocytes Nitrite Labor Signs Protein Cervic Dilation Cervic Effacement Cervic Station neg none 28 trace Type Weight in lbs Pre/Post Dialysis Refused Weight 231.956953341812 BP Diastolic BP Location Tested BP Systolic BP Type 80 125 Fetus Heart Rate Present A 145 B 135 Fetus Movement A Yes B Yes Comments Doing well. Back to [facility] this week to repeat dopplers on A- elevated but baby was not still. Normal anatomy and growth last week. Discussed Tdap. Visits every 2 weeks now. Flowsheet Date 12/23/2020 Montalvo Score Blood Edema Fundus Height Fundus Units Glucose Ketones Leukocytes Nitrite Labor Signs Protein Cervic Dilation Cervic Effacement Cervic Station neg none 31 trace Type Weight in lbs Pre/Post Dialysis Refused Weight 234.609486317144 BP Diastolic BP Location Tested BP Systolic BP Type 70 119 Fetus Heart Rate Present A 145 B 135 Fetus Movement A Yes B Yes Comments Doing well, feeling great. F M x2. Dopplers varied from normal to abnormal at [facility] last week. To [facility] this week. Flowsheet Date 01/05/2021 Montalvo Score Blood Edema Fundus Height Fundus Units Glucose Ketones Leukocytes Nitrite Labor Signs Protein Cervic Dilation Cervic Effacement Cervic Station trace Type Weight in lbs Pre/Post Dialysis Refused Weight 243.718516419311 BP Diastolic BP Location Tested BP Systolic BP Type 62 R arm 106 sitting Fetus Heart Rate Present A 130 B 142 Fetus Movement A Yes B Yes Comments patient is doing very well, saw [facility] this morning. Observed abnormality of umbilical cord artery Doppler flow study is normal at [facility]. she will follow-up in 2 weeks, has follow-up with [facility] as well, echocardiograms to be performed. Flowsheet Date 01/13/2021 Montalvo Score Blood Edema Fundus Height Fundus Units Glucose Ketones Leukocytes Nitrite Labor Signs Protein Cervic Dilation Cervic Effacement Cervic Station Type Weight in lbs Pre/Post Dialysis Refused BP Diastolic BP Location Tested BP Systolic BP Type Fetus Heart Rate Present Fetus Movement Comments Flowsheet Date 01/19/2021 Montalvo Score Blood Edema Fundus Height Fundus Units Glucose Ketones Leukocytes Nitrite Labor Signs Protein Cervic Dilation Cervic Effacement Cervic Station trace 30 trace Type Weight in lbs Pre/Post Dialysis Refused Weight 251.94554742318 BP Diastolic BP Location Tested BP Systolic BP Type 75 116 Fetus Heart Rate Present A 137 B 140 Fetus Movement A Yes B Yes Comments [facility] visit this am with u/s. Pt states no concerns. Will await consult note. Flowsheet Date 02/02/2021 Montalvo Score Blood Edema Fundus Height Fundus Units Glucose Ketones Leukocytes Nitrite Labor Signs Protein Cervic Dilation Cervic Effacement Cervic Station neg none 36 trace Type Weight in lbs Pre/Post Dialysis Refused Weight 257.454780837823 BP Diastolic BP Location Tested BP Systolic BP Type 78 120 Fetus Heart Rate Present A 140 B 130 Fetus Movement A Yes B Yes Comments Doing really well! Some left lateral thigh numbness and some carpal tunnel. Comfort measures discussed. echo this week. SO far concordant growth. Wants CS for delivery, will schedule at 37 weeks after next visit. Has had COVID vaccine. GCT today. Flowsheet Date 02/06/2021 Montalvo Score Blood Edema Fundus Height Fundus Units Glucose Ketones Leukocytes Nitrite Labor Signs Protein Cervic Dilation Cervic Effacement Cervic Station Type Weight in lbs Pre/Post Dialysis Refused BP Diastolic BP Location Tested BP Systolic BP Type Fetus Heart Rate Present Fetus Movement Comments Flowsheet Date 02/09/2021 Montalvo Score Blood Edema Fundus Height Fundus Units Glucose Ketones Leukocytes Nitrite Labor Signs Protein Cervic Dilation Cervic Effacement Cervic Station Type Weight in lbs Pre/Post Dialysis Refused BP Diastolic BP Location Tested BP Systolic BP Type Fetus Heart Rate Present Fetus Movement Comments Flowsheet Date 02/16/2021 Montalvo Score Blood Edema Fundus Height Fundus Units Glucose Ketones Leukocytes Nitrite Labor Signs Protein Cervic Dilation Cervic Effacement Cervic Station neg trace neg Type Weight in lbs Pre/Post Dialysis Refused Weight 264.919479025833 BP Diastolic BP Location Tested BP Systolic BP Type 81 122 Fetus Heart Rate Present Fetus Movement A Yes B Yes Comments Flowsheet Date 02/16/2021 Montalvo Score Blood Edema Fundus Height Fundus Units Glucose Ketones Leukocytes Nitrite Labor Signs Protein Cervic Dilation Cervic Effacement Cervic Station none 38 neg Type Weight in lbs Pre/Post Dialysis Refused Weight 264.133969710259 BP Diastolic BP Location Tested BP Systolic BP Type 81 122 Fetus Heart Rate Present A 155 B 140 Fetus Movement Comments Feeling well, gets sore at t he end of a work day. Will schedule CS at 37 weeks on 04/06. Newly diagnosed GDM, diet teaching a week ago. Fastings 91-114, most pp fine. Will start 10u NPH q HS today. Precautions given. Insulin teaching done per RN. Flowsheet Date 03/02/2021 Montalvo Score Blood Edema Fundus Height Fundus Units Glucose Ketones Leukocytes Nitrite Labor Signs Protein Cervic Dilation Cervic Effacement Cervic Station none 41 trace Type Weight in lbs Pre/Post Dialysis Refused Weight 268.070069007524 BP Diastolic BP Location Tested BP Systolic BP Type 77 114 Fetus Heart Rate Present A 125 B 140 Fetus Movement A Yes B Yes Comments Doing really well, but not s leeping well. Fastings ok, 88-109, will increase nightly NPH to 18. Breakfast more than half high despite hardly any carbs for breakfast. Will start am NPH. 02/26 was inhospital for KENDRA owusu, 24 hr urine 192. BP great today. Does have some edema in hands and feet and some itching on palms. will check bile acids, but do not suspect cholestasis. Doing monitoring at [facility]. FU weekly. CS scheduled for 04/06. Flowsheet Date 03/09/2021 Montalvo Score Blood Edema Fundus Height Fundus Units Glucose Ketones Leukocytes Nitrite Labor Signs Protein Cervic Dilation Cervic Effacement Cervic Station neg trace 41 trace Type Weight in lbs Pre/Post Dialysis Refused Weight 269.105798120816 BP Diastolic BP Location Tested BP Systolic BP Type 79 125 Fetus Heart Rate Present A 135 B 145 Fetus Movement A Yes B Yes Comments Doing ok. Hands still itchy, started ursodiol.. Has had COVID vaccine. Discussed and encouraged flu shot and Tdap- will get. PP mostly ok, fastings 84-99, most upper 90s. Will increase HS NPH to 20, keep am at 6. Flowsheet Date 03/16/2021 Montalvo Score Blood Edema Fundus Height Fundus Units Glucose Ketones Leukocytes Nitrite Labor Signs Protein Cervic Dilation Cervic Effacement Cervic Station neg trace 41 trace Type Weight in lbs Pre/Post Dialysis Refused Weight 274.604910170801 BP Diastolic BP Location Tested BP Systolic BP Type 83 122 Fetus Heart Rate Present A 160 B 135 Fetus Movement A Yes B Yes Comments Doing well, but getting pret ty uncomfortable. FLu and Tdap done. BS- most fastings elevated. Increase HS NPH to 26. Keep am at 6. Precautions given. monitoring per [facility]. Flowsheet Date 03/23/2021 Montalvo Score Blood Edema Fundus Height Fundus Units Glucose Ketones Leukocytes Nitrite Labor Signs Protein Cervic Dilation Cervic Effacement Cervic Station neg trace 43 trace Type Weight in lbs Pre/Post Dialysis Refused Weight 279.990117803337 BP Diastolic BP Location Tested BP Systolic BP Type 87 124 Fetus Heart Rate Present A 145 B 125 Fetus Movement A Yes B Yes Comments Doing well overall. Some swe lling. Normotensive. Great FM. Monitoring per MFM. GBS next, discussed. Fastings still elevated, will increase to 34 units at night. Flowsheet Date 03/30/2021 Montalvo Score Blood Edema Fundus Height Fundus Units Glucose Ketones Leukocytes Nitrite Labor Signs Protein Cervic Dilation Cervic Effacement Cervic Station neg trace 44 trace Type Weight in lbs Pre/Post Dialysis Refused Weight 286.096741659872 BP Diastolic BP Location Tested BP Systolic BP Type 62 110 Fetus Heart Rate Present A 135 B 125 Fetus Movement A Yes B Yes Comments Doing well. Itching somewhat better. Great FM. GBS done and discussed. Fastings about half elevated, will increase to 38 at night, keep 6u in am. Discussed half dose insulin night before CS, none in am. Precautions given. Flowsheet Date 04/17/2021 Montalvo Score Blood Edema Fundus Height Fundus Units Glucose Ketones Leukocytes Nitrite Labor Signs Protein Cervic Dilation Cervic Effacement Cervic Station Type Weight in lbs Pre/Post Dialysis Refused Weight 263.046253274175 BP Diastolic BP Location Tested BP Systolic BP Type 85 155 Fetus Heart Rate Present Fetus Movement Comments Menstrual History Last Menstrual Date Menses Monthly On Bcp Conception Prior Menses Frequency Hcg Plus Date Menarche Onset Age 0106/25/2020 Genetic Screening And Infection History Question Response Note Mental Retardation/Autism false Patient's Age Will Be 35 Years Or Older At Estim ated Date of Delivery false Thalassemia (Danish, Wolof, Mediterranean, Or Background): MCV < 80 false Neural Tube Defect (Meningomyelocele, Spina Bifi da, Or Anencephaly) false Congenital Heart Defect false Down Syndrome false Hasmukh-Sachs (eg, Pentecostal, Cajun, Amharic-[place]) f alse Kayla Disease false Sickle Cell Disease Or Trait () false Hemophilia Or Other Blood Disorders false Muscular Dystrophy false Cystic Fibrosis false Hansford's Chorea false Intellectual Disability/Autism false If Yes, Was Person Tested For Fragile X? false Other Inherited Genetic Or Chromosomal Disorder false Maternal Metabolic Disorder (eg, Type 1 Diabetes , PKU) false Patient Or Baby's Father Had A Child With Defects Not Listed Above false Recurrent Loss, Or A Stillbirth false Medications (including Suppl ements, Vitamins, Herbs, OTC Drugs), Illicit/Recreational Drugs, Alcohol true MJ If Yes, Agent(s) And Strength/Dosage false Any Other Genetic History false Live With Someone With TB Or Exposed To TB false Patient Or Partner Has History Of Genital Herpes false Rash Or Viral Illness Since Last Menstrual Perio d false History Of STD, Gonorrhea, Chlamydia, HPV, Syphi lis false Other Infection History false History of HIV false History of Hepatitis false Prior GBS-infected child false Hemoglobinopathy Or Carrier false Other Structural Defect false Recent Travel History Outside of Country false Delivery Information Delivery Date Delivery Type Labor Anesthesia Weeks Gestation Incision Type Labor Labor Length Hrs Delivered By Post Complications Tubal Sterilization Discharge Date Comments 1 None [facility] 37.2 Low Transvers e false Micaela Chacon MD Twins Monochori onic/Diam niotic, Cholestas is, GDM Insulin Discharge Information Feeding Method Contraceptive Method Maternal HG B and HCT Levels Breast Ob Episode Information Episode Created Date Number of Fetuses Patient Bloodtype Patient rh Status Prepregnancy Weight lbs Domestic Partner Domestic Partner Phone Father Name Strand And Binder Controller Status 10/01/19 21 1 CLOSED Fetus Data First Name Last Name Admitted to NICU Weight (g) Sex Living Outcome Pediatric Complications Fetus ID Race Codes Race Delivery Type , Spontane ous [id number] Remigio Calculation Initial Remigio Date Initial Exam Date Initial Exam Provider Initial Ultrasound Date Last Menstrual Period Date Ultra Sound Weeks Gestation 0 Eighteen To Twenty Week Remigio Update Ultra Sound Date Fundal Height At Umbil Quickening Date Ultra Sound Latest Weeks Gestation Final Remigio Confirmed By Final Remigio Confirmed Date Final Remigio Date Ultra Sound Latest Days Gestation 0 0 Menstrual History Last Menstrual Date Menses Monthly On Bcp Conception Prior Menses Frequency Hcg Plus Date Menarche Onset Age Delivery Information Delivery Date Delivery Type Labor Anesthesia Weeks Gestation Incision Type Labor Labor Length Hrs Delivered By Post Complications Tubal Sterilization Discharge Date Comments 4 Discharge Information Feeding Method Contraceptive Method Maternal HG B and HCT Levels
--- OUTSIDE RECORDS SUMMARY | 2024-10-08 13:48 | XMS_ITS ---
Author Organization Formerly [facility], [facility] Address [address] [place] [address] Care Team Providers Care Jailer Chief Name Role Phone Celeste Coronel Primary Care Provider REASON FOR VISIT Other Encounters Encounter Location Date Provider Diagnosis [facility] [address] [place] [address] 10/04/2024 Celeste Coronel Plan Of Treatment Next Appt Details Provider Name:Zahra perdomo, 10/10/2024 09:00:00 AM, [address] [place] [address], [phone], Provider Name:Laurie vidales, 10/11/2024 11:00:00 AM, [address], [place], [address], Progress Notes * YOSVANY AnetteOB: 4 (29 yo F)Acc No.[id number]:10/04/2024 UNLOCKED PROGRESS NOTE Patient: Jose CRAIG :1995 A ge:29 Y S ex:Female Address:[address], [place], [address] * * Date:
--- OUTSIDE RECORDS SUMMARY | 2024-10-08 13:48 | XMS_ITS | Encounter Summary ---
Author Organization [facility] [place] [place] Address [address] [place] [address] Care Team Providers Care Rn Bone Marrow Transplant Name Role Phone Unavailable Primary Care Provider Unavailabl e Prior Encounters Date Type Department Care Team Description 02/01/2022 1:15 PM CDT Office Visit [facility] [address] [place] [address] [facility] 11/19/2021 9:00 AM CDT Office Visit [facility] [address] [place] [address] Gavino Munoz DDS 11/19/2021 9:00 AM CDT Office Visit [facility] [address] [place] [address] Layne Banda, [facility] 05/20/2021 Travel 05/20/2021 11:00 AM BACK UP SCAN COORDINATOR Office Visit [facility] [address] [place] [address] Christiane Nguyễn, DMD 05/20/2021 11:00 AM BACK UP SCAN COORDINATOR Office Visit [facility] [address] [place] [address] [facility] 01/27/2021 Travel 01/27/2021 3:30 PM CDT Office Visit [facility] [address] [place] [address] Christiane Nguyễn, DMD 07/09/2019 Converted 13x Documents [facility] [address] [place] [address] <No scans attached> 07/09/2019 Converted CPS Chart Documents [facility] [address] [place] [id number] <No scans attached> 07/09/2019 Converted CPS Chart Documents [facility] [address] [place] [address] <No scans attached> 07/09/2019 Converted 13x Documents [facility] [address] [place] [address] <No scans attached> Last Filed Vital Signs Vital Sign Reading Time Taken Comments Blood Pressure 118/75 05/20/2021 11:00 AM BACK UP SCAN COORDINATOR Pulse 89 05/20/2021 11:00 AM BACK UP SCAN COORDINATOR Temperature 36 C (96.8 F) 05/20/2021 11:00 AM BACK UP SCAN COORDINATOR Respiratory Rate - - Oxygen Saturation - - Inhaled Oxygen Concentration - - Weight - - Height - - Body Mass Index - - Plan of Treatment Not on file Procedures Procedure Name Priority Date/Time Associated Diagnosis Comments PROPHYLAXIS - ADULT Routine 02/01/2022 1 :15 PM CDT PERIODIC ORAL EVALUATION - ESTABLISHED PATIENT Routine 11/19/2021 9:00 AM CDT ORAL HYGIENE INSTRUCTIONS Routine 2021 9:00 AM CDT TOPICAL APPLICATION OF FLUORIDE VARNISH Routine 11/19/2021 9:00 AM CDT PROPHYLAXIS - ADULT Routine 11/19/2021 9 :00 AM CDT BITEWINGS - FOUR RADIOGRAPHIC IMAGES Routine 05/20/2021 11:00 AM BACK UP SCAN COORDINATOR PERIODIC ORAL EVALUATION - ESTABLISHED PATIENT Routine 05/20/2021 11:00 AM BACK UP SCAN COORDINATOR TOPICAL APPLICATION OF FLUORIDE VARNISH Routine 05/20/2021 11:00 AM BACK UP SCAN COORDINATOR ORAL HYGIENE INSTRUCTIONS Routine 2020 11:00 AM BACK UP SCAN COORDINATOR PROPHYLAXIS - ADULT Routine 05/20/2021 1 1:00 AM BACK UP SCAN COORDINATOR ORAL-B ELEC BRUSH Routine 01/27/2021 3:3 0 PM CDT ORAL HYGIENE INSTRUCTIONS Routine 2020 2:00 AM CDT TOPICAL APPLICATION OF FLUORIDE VARNISH Routine 11/05/2020 2:00 AM CDT PROPHYLAXIS - ADULT Routine 11/05/2020 2 :00 AM CDT PERIODIC ORAL EVALUATION - ESTABLISHED PATIENT Routine 11/05/2020 2:00 AM CDT CANCELLED APPOINTMENT Routine 11/04/2020 2:00 AM CDT CANCELLED APPOINTMENT Routine 11/04/2020 2:00 AM CDT CANCELLED APPOINTMENT Routine 10/06/2020 2:00 AM CDT CANCELLED APPOINTMENT Routine 10/06/2020 2:00 AM CDT 29 DO COMPOSITE FILLING Routine 04/24/20 20 2:00 AM BACK UP SCAN COORDINATOR 9 ML COMPOSITE FILLING Routine 0 2:00 AM BACK UP SCAN COORDINATOR 8 ML COMPOSITE FILLING Routine 0 2:00 AM BACK UP SCAN COORDINATOR ORAL HYGIENE INSTRUCTIONS Routine 2019 2:00 AM CDT TOPICAL APPLICATION OF FLUORIDE VARNISH Routine 04/04/2020 2:00 AM CDT PROPHYLAXIS - ADULT Routine 04/04/2020 2 :00 AM CDT COMPREHENSIVE ORAL EVALUATION - NEW OR ESTABLISHED PATIENT Routine 04/04/2020 2:00 AM CDT OFFICE VISIT FOR OBSERVATION (DURING REGULARLY SCHEDULED HOURS) - NO OTHER SERVICES PERFORMED Routine 07/25/2019 2:00 AM BACK UP SCAN COORDINATOR PANORAMIC RADIOGRAPHIC IMAGE Routine 07/25/2019 2:00 AM BACK UP SCAN COORDINATOR COMPREHENSIVE ORAL EVALUATION - NEW OR ESTABLISHED PATIENT Routine 03/27/2019 2:00 AM CDT ADJUNCTIVE PRE-DIAGNOSTIC TEST THAT AIDS IN DETECTION OF MUCOSAL ABNORMALITIES Routine 03/27/2019 2:00 AM CDT ORAL HYGIENE INSTRUCTIONS Routine 2018 2:00 AM CDT UR JAIME DECON/QD Routine 03/27/2019 2:00 AM CDT PROPHYLAXIS - ADULT Routine 03/27/2019 2 :00 AM CDT PANORAMIC RADIOGRAPHIC IMAGE Routine 03/27/2019 2:00 AM CDT INTRAORAL - COMPREHENSIVE SERIES OF RADIOGRAPHIC IMAGES Routine 03/27/2019 2:00 AM CDT INTRAORAL PHOTO Routine 03/27/2019 2:00 AM CDT INTRAORAL PHOTO Routine 03/27/2019 2:00 AM CDT INTRAORAL PHOTO Routine 03/27/2019 2:00 AM CDT INTRAORAL PHOTO Routine 03/27/2019 2:00 AM CDT Visit Diagnoses Not on file Insurance [facility] PPO
--- OUTSIDE RECORDS SUMMARY | 2024-10-08 13:48 | XMS_ITS | Referral Summary ---
Author Organization [facility] at [facility] Address [address] [place] [address] Care Team Providers Care Brakes Inspector Name Role Phone Danny Caal MD Primary Care Provider [phone] Allergies Active Allergy Reactions Criticality Noted Date Comments Oseltamivir Hives,Unknown,Rash High 07/15/2020 Other reaction(s): Hives Medications FLUoxetine (PROzac) 10 mg tablet/capsule Take 1 tablet/capsul e (10 mg total) by mouth daily 30 tablet/capsu le 5 1 Active dextroamphetamine- amphetamine (ADDERALL) 10 mg tabletIndications: Attention deficit disorder (ADD) without hyperactivity Take 1 tablet (10 mg total) by mouth 2 (two) times a day 60 tablet 2 Active COVID-19 antigen test (BinaxNOW COVID-19 Ag Self Test) kit Use as Directed on the Package 2 Active hydrOXYzine (ATARAX) 25 mg tablet Take by mouth 3 (three) times a day as needed 3 Active lurasidone (LATUDA) 20 mg tablet TAKE 1 TABLET BY MOUTH ONCE DAILY WITH FOOD (AT LEAST 350 CALORIES) 3 Active traZODone (DESYREL) 50 mg tablet Active Active Problems Problem Noted Date Diagnosed Date 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 Annual physical exam 12/29/2020 Generalized abdominal pain 07/15/2020 Functional diarrhea 07/15/2020 Bowel sounds hyperactive 07/15/2020 Attention deficit disorder (ADD) without hyperac tivity 05/21/2019 Raynaud's disease 12/10/2009 Immunizations Immunization Administration Dates Next Due Influenza, Quadrivalent, Rec ombinant, Egg Free, Preservative Free, Intramuscular 06/04/2020 Social History Tobacco Use Types Packs/Day Years Used Date Smoking Tobacco: Never Smokeless Tobacco: Never Alcohol Use Standard Drinks/Week Comments Yes 0 (1 standard drink = 0.6 oz pur e alcohol) AUDIT-C Answer Date Recorded Q1: How often do you have a drink containing alc ohol? Never 12/29/2020 Average Number of Drinks Not on file 021 Frequency of Binge Drinking Not on file 12/18 PHQ-2 Answer Date Recorded PHQ-2 Total Score (If total score is 3 or more points, staff should administer the PHQ-9) 1 12/29/2020 Personal Safety Answer Date Recorded Getting School Help Needed Not on file 06/11 Comments Unknown Sex and Gender Information Value Date Recorded Sex Assigned at Not on file Legal Sex Female 12:48 AM BLOCK CUTTER Gender Identity Female 05/28/2020 9:09 AM BLOCK CUTTER Sexual Orientation Straight 05/28/2020 9: 09 AM BLOCK CUTTER Last Filed Vital Signs Vital Sign Reading Time Taken Comments Blood Pressure 118/72 03/19/2023 9:53 AM CDT Pulse 86 03/19/2023 9:53 AM CDT Temperature 36.7 C (98 F) 03/19/2023 9:53 AM CDT Respiratory Rate 20 03/19/2023 9:53 AM CDT Oxygen Saturation 98% 03/19/2023 9:53 AM CDT Inhaled Oxygen Concentration - - Weight 112.5 kg (248 lb) 03/19/2023 9:53 AM CDT Height 172.7 cm (5' 8 ) 05/05/2021 9:44 AM BLOCK CUTTER Body Mass Index 37.71 05/05/2021 9:44 AM BLOCK CUTTER Plan of Treatment Not on file Insurance [facility] Care Teams Brakes Inspector Relationship Specialty Start Date End Date Danny Caal MD PCP - General Family Medicine 05/08/19
--- OUTSIDE RECORDS SUMMARY | 2024-10-08 13:48 | XMS_ITS | Clinical Summary ---
Author Organization [facility] Address [address] [place] [address] Care Team Providers Care Textile Finisher Name Role Phone Danny Caal MD Primary Care Provider [phone] Allergies Active Allergy Reactions Criticality Noted Date [...] ombinant, Egg Free, Preservative Free, Intramuscular 06/04/2020 Surgical History Surgery Date Site/Laterality Comments TONSILLECTOMY DILATION AND CURETTAGE OF UTERUS 06/20/2012 - 06/19/2013 DILATION AND CURETTAGE OF UTERUS 06/20/2016 - 06/19/2017 SECTION 04/06/2021 Medical History Medical History Date Comments ADHD (attention deficit hyperactivity disorder) Family History Medical History Relation Name Comments No Known Problems Brother No Known Problems Father No Known Problems Mother No Known Problems Sister Relation Name Status Comments Brother Alive Father Alive Mother Alive Sister Alive Social History Tobacco Use Types Packs/Day Years Used Date Smoking Tobacco: Never Smokeless Tobacco: Never Alcohol Use Standard Drinks/Week Comments Yes 0 (1 standard drink = 0.6 oz pur e alcohol) AUDIT-C Answer Date Recorded Q1: How often do you have a drink containing alc ohol? Never 12/29/2020 Average Number of Drinks Not on file Frequency of Binge Drinking Not on file 12/18 PHQ-2 Answer Date Recorded PHQ-2 Total Score (If total score is 3 or more points, staff should administer the PHQ-9) 1 12/29/2020 Personal Safety Answer Date Recorded Getting School Help Needed Not on file 06/11 Comments Unknown Sex and Gender Information Value Date Recorded Sex Assigned at Not on file Legal Sex Female 12:48 AM KINDERGARTEN PARAPROFESSIONAL Gender Identity Female 05/28/2020 9:09 AM KINDERGARTEN PARAPROFESSIONAL Sexual Orientation Straight 05/28/2020 9: 09 AM KINDERGARTEN PARAPROFESSIONAL Obstetrics History Last Filed Vital Signs Vital Sign Reading [...] cm (5' 8 ) 05/05/2021 9:44 AM KINDERGARTEN PARAPROFESSIONAL Body Mass Index 37.71 05/05/2021 9:44 AM KINDERGARTEN PARAPROFESSIONAL Plan of Treatment Health Maintenance Due Date Last Done Comments Cervical Cancer Screening 1993 Hepatitis C Screening 1993 DTaP/Tdap/Td Vaccine (1 - Tdap) 2004 Varicella Vaccines (1 of 2 - 13+ 2-dose series) 2006 Hepatitis B Screening 2011 Depression Screening 12/29/2021 12/29/2020, 06/04/2020, 05/21/2019, Additional history exists Regular Well Visit/Exam 18-64 12/29/2021 12/29/2020 Influenza Vaccine (Season Ended) 2025 06/04/2020 HPV Vaccines Aged Out No longer eligi ble based on patient's age to complete this topic Pneumococcal vaccine <65 Aged Out No longer eligible based on patient's age to complete this topic Insurance [facility] Care Teams Textile Finisher Relationship Specialty Start Date End Date Danny Caal MD PCP - General Family Medicine 05/08/19
--- OUTSIDE RECORDS SUMMARY | 2024-10-08 13:49 | XMS_ITS | Clinical Summary ---
Author Organization [facility] Address [address] [place] [address] Care Team Providers Care Assistant Banquet Manager Name Role Phone Danny Caal MD Primary Care Provider [phone] Source Comments [facility],non-owned Affiliates and Associated Physician Practices is amultiple site organization consisting of ambulatory clinics and hospital sitesin [place], [place], [place] and [place]. This disclosure is being madepursuant to the Care Everywhere program and may not contain all information available regarding this patient. Last updated 18.[facility] Allergies Active Allergy Reactions Criticality Noted Date Comments Tamiflu Rash Medium 12/10/2020 Medications * Be aware that medications may not be up to date on this document. Alwaysverify current medications with the patient. Vit-Fe Fumarate-FA ( VITAMIN) 28-0.8 MG tabletIndicatio ns: Take 1 tablet by mouth once daily Reasons: Active aspirin (ASPIRIN) 81 MG chew tabletIndicatio ns:Preeclampsia Take 81 mg by mouth once daily Reasons: Increased Blood Pressure and Edema During Active Active Problems Problem Noted Date Diagnosed Date Monochorionic diamniotic twin , antepar pepper 12/10/2020 Overview (12/10/2020): A+/ ANTIBODY-NEG/ IMM Plt 285 HH 12.2/35.9 Resolved Problems Problem Noted Date Diagnosed Date Resolved Date Depression screening-Initial 12/25/2020 12/25/2020 04/08/2021 Overview (02/05/2021): 12/25/2020 Chelsey Bra was screened for depression using the [place] Depression Scale (EPDS) at her [facility] initial evaluation on 12/25/2020. Her initial score at baseline was 9. Based off of her score of 9, Chelsey does not warrant follow up. Patient will continue to be screened throughout , at intervals no closer than two weeks, for continued surveillance and early identification of depression until delivery. Patient reports mental health history. Diagnoses include depression and anxiety. 02/05/2021-EPDS follow up=6 [facility]: abnormality in pr egnancy, mono/di twins 12/19/2020 04/08/2021 Overview (04/03/2021): Images from the original note were not included. [facility] PATIENT--PLEASE CALL [phone] (ex 2) IF TRIAGED OR ADMITTED Care Provider: Dr. Micaela Chacon ([facility] [place]) [facility] consultants involved: Nurse coordinators: Jorge Oconnor/Jeni Naranjo; [facility]-Dr. Smyth; Pediatric Cardiology-Dr. Lynch Diagnosis: MCDA twins; Normal echocardiograms for both twins; Small hyperechoic area noted in the LUQ of twin A (non-presenting twin)-unclear clinical significance Planned surveillance: Routine OB care; Ultrasound for TTTS screening every 2 weeks at [facility]; Weekly testing for BPP/NST starting at 32 weeks; Released from [facility] after visit on 02/05/2021 Delivery location: With primary OB at hospital of choice ([facility]) Delivery mode: Per usual OB indications Desired Delivery GA: 37 weeks follow up: Abdominal ultrasound of twin A Embedded Linux Developer: Dr. Chetna Hess (letter faxed [phone]) Autopsy indicated: Genetics note: Collar Tailor Concerns: 12/25/2020-Patient with history of anxiety and depression- no medications at this time Care plan based on evaluation and is subject to change based on assessment. See Images or Cardiac under Chart Review for US/ ECHO/ MRI reports. Monochorionic diamniotic twi n , second trimester 12/08/2020 12/08/2020 Overview (12/10/2020): LMP 06/25/20= YUMIKO 04/01/21 Dating 09/30/20: A 10w3d= 04/25/21,CRL 3.57 B 10w5d= 04/23/21,CRL 3.78 NIPT w/q 22: LowRisk, Monozygotic: Male/Male CF/SMA screen: Negative A+,AB: negative, Immune, Rpr-NR, HIV-NR, HBsag-NR, Hep C-NR GC,Chla,Trich: Negative ; H/h/p: 12.2, 35.9, 285 Positive UDS(08/28/20): + THC; THC quant >100H (<10 is WNL) History of miscarriage, currently 12/08/2020 12/08/2020 Overview (12/08/2020): SAB X 1 Family History Medical History Relation Name Comments Cancer Maternal Grandmother Cancer Mother Relation Name Status Comments Maternal Grandmother Mother Social History Tobacco Use Types Packs/Day Years Used Date Smoking Tobacco: Never Smokeless Tobacco: Never Alcohol Use Standard Drinks/Week Comments Not Currently 0 (1 standard drink = 0.6 oz pur e alcohol) Comments No Sex and Gender Information Value Date Recorded Sex Assigned at Not on file Legal Sex Female 4:12 AM CDT Gender Identity Not on file Sexual Orientation Not on file Last Filed Vital Signs Vital Sign Reading Time Taken Comments Blood Pressure 117/82 04/03/2021 9:06 AM CDT Pulse 80 04/03/2021 9:06 AM CDT Temperature - - Respiratory Rate - - Oxygen Saturation - - Inhaled Oxygen Concentration - - Weight 116 kg (255 lb 11.7 oz) 02/05/2021 1:51 P M CDT Height 172.7 cm (5' 8 ) 12/31/2020 10:39 AM CDT Body Mass Index 38.88 12/31/2020 10:39 AM CDT Plan of Treatment Health Maintenance Due Date Last Done Comments DTAP/TDAP/TD VACCINES (1 - Tdap) 2012 HEPATITIS B VACCINE (1 of 3 - 19+ 3-dose series) 2012 COVID-19 VACCINE (2023-2 5 season) 2024 DEPRESSION SCREENING 06/20/2024 INFLUENZA VACCINE (Season Ended) 2025 06/04/20 ZOSTER VACCINE (1 of 2) 2043 HEPATITIS C SCREENING Completed 09/30/2020 HIV SCREENING Completed 02/02/2021 HIB VACCINE Aged Out No longer eligi ble based on patient's age to complete this topic HPV VACCINE Aged Out No longer eligi ble based on patient's age to complete this topic MENINGOCOCCAL (Group B) VACC INE SHARED DECISION-MAKING Aged Out No longer eligibl e based on patient's age to complete this topic MENINGOCOCCAL GROUPS A/C/Y/W VACCINE Aged Out No longer eligible b ased on patient's age to complete this topic PNEUMOCOCCAL VACCINE Aged Out No long er eligible based on patient's age to complete this topic Insurance [facility] MEDICAID - OUT OF [facility] Care Teams Assistant Banquet Manager Relationship Specialty Start Date End Date Danny Caal MD [address] [place] [address] PCP - General 04/12/21
--- OUTSIDE RECORDS SUMMARY | 2024-10-08 13:49 | XMS_ITS ---
Author Organization [facility] Address [address] [place] [address] Care Team Providers Care Application Security Architect Name Role Phone Celeste Coronel Primary Care Provider Russell Laurie Unavailable [phone] Allergies Allergen (clinical drug ingredient) Drug/Non Drug Allergy documented on EMR Reaction Allergy Type Onset Date Status oseltamivir Tamiflu Unknown Drug Allergy Activ e lamotrigine Lamotrigine rash Drug Allergy Act ann REASON FOR VISIT CRU pt est MAT care Medications Medication SIG (Take, Route, Frequency, Duration) Notes Start Date End Date Status Buprenorphine HCl-Naloxone HCl 4-1 MG 1 film under the tongue and allow to dissolve Sublingual Once a day 10/04/2024 Active hydrOXYzine HCl 25 MG 1 tablet as needed Orally Twice a day Active Multivitamin - 1 tablet Orally Once a day Active Amphetamine-Dextroamphe tamine 30 MG 1 tablet Orally once a day Active Lurasidone HCl 40 MG 1 tablet with food Orally Once a day for 7 days Pt on CRU, please deliver Active Problems Problem Type SNOMED Code ICD Code Onset Dates Problem Status W/U Status Risk Notes Problem Obesity (211586526) Obesity (BMI 30-39.9) (E66.9) Active confirmed Vital Signs Weight 242.2 lbs 10/04/2024 BMI 36.82 kg/m2 10/04/2024 Height 68 in 10/04/2024 Blood pressure systolic 118 mm Hg 10/05/19 25 Blood pressure diastolic 76 mm Hg 025 Heart Rate 88 /min 10/04/2024 Oximetry 99 % 10/04/2024 Temperature 98.1 degrees Fahrenheit 10/05/19 25 Respiratory Rate 16 /min 10/04/2024 Encounters Encounter Location Date Provider Diagnosis [facility] [address] [place] [address] 10/04/2024 Laurie Wells Opioid use disorder F11.99 and Obesity (BMI 30-39.9) E66.9 Assessments Encounter Date Diagnosis (ICD Code) Assessment Notes Treatment Notes Treatment Clinical Notes Section Notes 10/04/2024 Opioid use disorder (ICD-10 - F11.99) Client provided info on MAR options. Selected to initiate buprenorphine for treatment of OUD. 10/04/2024 Obesity (BMI 30-39.9) (ICD-10 - E66.9) 10/04/2024 Other Discussed medication side effects, adverse effects, risks, benefits, as well as interactions. Encouraged non-use of opioids. Has naloxone. Recommended participation in recovery groups and/or counseling services. May contact office with questions or concerns. Plan Of Treatment Medication Medication Name Sig Start Date Stop Date Notes Buprenorphine HCl-Naloxone H Cl 4-1 MG 1 film under the tongue and allow to dissolve Sublingual Once a day 10/04/2024 Treatment Notes Assessment Notes Opioid use disorder Client provided info on MAR options. Selected to initiate buprenorphine for treatment of OUD. Other Discussed medication side effects, adverse effects, risks, benefits, as well as interactions. Encouraged non-use of opioids. Has naloxone. Recommended participation in recovery groups and/or counseling services. May contact office with questions or concerns. Next Appt Details Follow Up: 1 Week, Reason: M AR f/u Provider Name:Zahra perdomo, 10/10/2024 09:00:00 AM, [address] [place] [address], [id number], Provider Name:Laurie vidales, 10/11/2024 11:00:00 AM, [address], [place], [address], Progress Notes * Anette BAROB: 4 (29 yo F)Acc No.[id number]:10/04/2024 Patient: Roman Jose MONZON Provider: Chester Wells, MSN, FAN ENGINE ENGINEER, [employer] :1995 A ge:29 Y S ex:Female Date:10/04/2024 Address:[address], [facility] Pcp:Celeste Beck Short Check In:03:46 PM ENTRANCE GUARD Subjective: * Chief Complaints: * C RU pt est MAT care * HPI: I nterim History: Emergency room visit N o. Was hospitalized N o. D epression Screening: PHQ-9 L ittle interest or pleasure in doing things?Several days F eeling down, depressed, or hopeless S everal days T rouble falling or staying asleep, or sleeping too much N early every day F eeling tired or having little energy M ore than half the days P oor appetite or overeating M ore than half the days F eeling bad about yourself or that you are a failure, or have let yourself or your family down N early every day T rouble concentrating on things, such as reading the newspaper or watching television M ore than half the days M oving or speaking so slowly that other people could have noticed; or the opposite, being so fidgety or restless that you have been moving around a lot more than usual N early every day T houghts that you would be better off or of hurting yourself in some way M ore than half the days (Consider Suicide Assessment Risk) T otal Score 1 9 I nterpretation M oderately Severe Depression S creening: [place] Suicide Severity Rating Scale (LF) D o you want to initiate with S creener form 1 . Wish to be : Have you wished you were or wished you could go to sleep and not wake up? Y es 2 . Suicidal Thoughts: Have you actually had any thoughts of killing yourself? N o 6 . Suicide Behavior Question: Have you ever done anything,started to do anything, or prepared to end your life? N o P reventative Health and Wellness follow-up: . D epression Screening PHQ9: c/o PHQ-2 (2015 Edition). PHQ9 D epression Screening Finding P ositive F ollow-up Depression W arm hand-off to staff C SSRS Interpretation and Follow Up Plan: CSSRS Interpretation and Follow Up Plan C SSRS Screen documented using SF Y es R isk Disposition from SF L ow - No Follow Up Plan Required F ollow Up Plan N o Follow Up Plan required at this time. T imeframe of Screening T go N ew/Follow-up Patient Consult: Consent to treat S taff reviewed [facility] Consent to Treat document with the patient. The patient verbally acknowledged understanding of the document and verbally voluntarily consents to treatment at [place]. Patient verbally authorizes [place] to bill for these services. . Maria COLON Initial Assessment: Jose presents for [facility] services. Currently admitted to the CRU. Drug of choice: hydrocodone. Reports initially prescribed in 2013 following a D&C after suffering a miscarriage. After no longer prescribed reports stealing pills from her father 2-3 times per week and each time taking up to 5 pills. Reports when she doesn't have medication feeling like something is missing , and reports everytime she sees a pill bottle she just had to take it. States last use on 09/28/2024. This is her first time seeking services. Substance use history S ubstance Use History, drugs of choice: O pioids (abuse/misuse of) Addiction Treatment History P rior Medications for VALDEZ treatment N one. First time seeking treatment. T herapy/counseling and Recovery support (peers/groups) N o history of therapy/counseling or engagement with recovery support peer/groups. Therapy/counseling and recovery support discussed and encouraged. Referrals placed. History of Infectious Diseases H istory of viral hepatitis N o H istory of HIV N o H istory of TB N o H istory of other infectious diseases N o History of IV drug use and related infections H istory of injection drug use? N o Acute Trauma A cute Trauma N o Psychiatric History H istory of psychiatric diagnoses? Y es (specify) H as a psychiatric provider? Y es. See notes. C onsent obtained for psychiatric provider if outside of [place]? N o. Patient sees [place] psychiatric provider. Primary Care H as a primary care provider? Y es. See notes for provider. Dr. Christa Beck ast primary care visit: 1 -3 years ago. D isclosure authorization obtained? N o (see notes). Assessment and history specific to females F emale/Female at ? Y es P regnancy testing: N egative. Rapid test completed in office and is negative. C ontraception: U ses contraception. Hepatitis A and B vaccination status V accination status Hep A R eports vaccination to Hep A V accination status, Hep B R eports vaccination for Hep B Housing Stability and Employment I s housing stable/safe? Y es C urrently employed? U nemployed. Support System: H as a support system: Y es (specify): parents Narcan Access H as Narcan and has been trained on its use??Yes. Prescription Drug Monitoring Program P rescription Drug Monitoring Program reviewed? Y es. No concerns identified. * ROS: B asic ROS: Denies C hills. D enies W eight loss or gain. D enies C hange in appetite. D enies S weats. A dmits C onstipation. A dmits?Anxiety. A dmits D epressed Mood. A dmits P sychiatric Condition. D enies?Suicidal Thoughts. * Medical History: * Surgical History: D nc 2012cesarean section 2020tonsillectomy 2008Dnc 2014Introscope * Hospitalization/Major Diagno stic Procedure: D enies Past Hospitalization * Family History: F ather: alive. M other: alive. 1 brother(s) , 1 sister(s) - healthy. 2 son(s) - healthy. . *believes her mother has bipolar. 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 1 M iscellaneous: M ethod of learning P referred method of learning: R eading,Discussion,Demonstration,Hearing * Medications: T akingMultivitamin - Tablet 1 tablet Orally Once a day hydrOXYzine HCl 25 MG Tablet 1 tablet as needed Orally Twice a day Lurasidone HCl 40 MG Tablet 1 tablet with food Orally Once a day , Notes to Pharmacist: Pt on CRU, please deliverAmphetamine-Dextroamphetamine 30 MG Tablet 1 tablet Orally once a day Medication List reviewed and reconciled with the patientTaking Multivitamin - Tablet 1 tablet Orally Once a day Taking hydrOXYzine HCl 25 MG Tablet 1 tablet as needed Orally Twice a day Taking Lurasidone HCl 40 MG Tablet 1 tablet with food Orally Once a day , Notes to Pharmacist: Pt on CRU, please deliverTaking Amphetamine-Dextroamphetamine 30 MG Tablet 1 tablet Orally once a day Medication List reviewed and reconciled with the patient * Allergies: T amifluLamotrigine: rash - Contraindication - Criticality Highno[Allergies Verified] Objective: * Vitals: W t:242.2, Ht:68, BMI:36.82, BP:118/76, HR:88, Oxygen sat %:99, Temp:98.1, RR:16, LMP:09/2024, Pain scale:0. * Examination: A [facility] Physical Assessment: Intoxication and Withdrawal signs I ntoxication signs N o signs of intoxication are present during examination. W ithdrawal Signs N o withdrawal signs are present during examination. . G eneral Examination: GENERAL APPEARANCE: p leasant, in no acute distress. PSYCH: s peech clear, alert, oriented x4, thought process logical, goal directed, anxious appearing. Assessment: * Assessment: 1. O besity (BMI 30-39.9) - E66.9 2 . O pioid use disorder - F11.99 (Primary) Plan: * Treatment: 2. O thers Notes: Discussed medication side effects, adverse effects, risks, benefits, as well as interactions. Encouraged non-use of opioids. Has naloxone. Recommended participation in recovery groups and/or counseling services. May contact office with questions or concerns. * Recommended Wellness and Pre vention Guidelines: * S chelsey vargas L ast Done N ext Due A ction Taken N ONCOMPLIANT A lcohol use screening - 0 10/04/2024 - N ONCOMPLIANT C ervical cancer screening - 0 10/04/2024 - N ONCOMPLIANT D epression followup 0 10/04/2024 0 10/04/2024 - N ONCOMPLIANT H IV screening - 0 10/04/2024 - * Procedure Codes: 3 008F BODY MASS INDEX [id number] SELF-MGMT EDUC & TRAIN, 1 PT * Preventive Medicine: Counseling: C are goal follow-up plan: BMI management provided Y es Above Normal BMI Follow-up L ifestyle education regarding diet * Follow Up: 1 Week (Reason: AUG f/u) * * Sign off status: Completed true * Provider: Chester Wells, MSN, FAN ENGINE ENGINEER, [employer] Date: 0 10/04/2024 Generated for Cory rivera/Filippo/Enidsmitting on: 0 10/08/2024 01:48 PM CDT History and Physical Notes * HPI (History of Present Illness) Category Sub-Category Detail Notes Category Not es Interim History Was hospitalized No Emergency room visit No Depression Screening PHQ9 PHQ9 Depression Screening Finding: Positive Follow-up Depression: Warm hand-off to [facility] staff New/Follow-up Patient Consult Consent to treat S taff reviewed [facility] Consent to Treat document with the patient. The patient verbally acknowledged understanding of the document and verbally voluntarily consents to treatment at [place]. Patient verbally authorizes [place] to bill for these services.: . Depression Screening PHQ-9 Little inte rest or pleasure in doing things: Several days Feeling down, depressed, or hopeless: Se veral days Trouble falling or staying asleep, or sl eeping too much: Nearly every day Feeling tired or having little energy: M ore than half the days Poor appetite or overeating: More than h yeny the days Feeling bad about yourself o r that you are a failure, or have let yourself or your family down: Nearly every day Trouble concentrating on thi ngs, such as reading the newspaper or watching television: More than half the days Moving or speaking so slowly that other people could have noticed; or the opposite, being so fidgety or restless that you have been moving around a lot more than usual: Nearly every day Thoughts that you would be b elias off or of hurting yourself in some way: More than half the days (Consider Suicide Assessment Risk) Total Score: 19 Interpretation: Moderately Severe Depres luis enrique Screening [place] Suicide Sev erity Rating Scale (LF) Do you want to initiate with: Screener form 1. Wish to be : Have you wished you were or wished you could go to sleep and not wake up?: Yes 2. Suicidal Thoughts: Have you actually had any thoughts of killing yourself?: No 6. Suicide Behavior Question: Have you ever done anything,started to do anything, or prepared to end your life?: No MAR Initial Assessment History of Infect ious Diseases History of viral hepatitis: No History of HIV: No History of TB: No History of other infectious diseases: No Acute Trauma Acute Trauma: No History of IV drug use and r elated infections History of injection drug use?: No Psychiatric History History of psychiatr ic diagnoses?: Yes (specify) Has a psychiatric provider?: Yes. See notes. Consent obtained for psychiatric provider if outside of [place]?: No. Patient sees [place] psychiatric provider. Substance use history Substance Use Hist ory, drugs of choice:: Opioids (abuse/misuse of) Addiction Treatment History Prior Medica tions for [facility] treatment: None. First time seeking treatment. Therapy/counseling and Recov phan support (peers/groups): No history of therapy/counseling or engagement with recovery support peer/groups. Therapy/counseling and recovery support discussed and encouraged. Referrals placed. Primary Care Has a primary care provider?: Carlos londono See notes for provider. Dr. Goodwin Last primary care visit:: 1-3 years ago. Disclosure authorization obtained?: No (see notes). Assessment and history specific to females Femal e/Female at ?: Yes testing:: Negative. Rapid test completed in office and is negative. Contraception:: Uses contraception. Hepatitis A and B vaccination status Vac cination status Hep A: Reports vaccination to Hep A Vaccination status, Hep B: Reports vacci nation for Hep B Housing Stability and Employment Is housing stab le/safe?: Yes Currently employed?: Unemployed. Support System: Has a support system:: Yes (spec dennis): parents Narcan Access Has Narcan and has b een trained on its use?: Yes. Prescription Drug Monitoring Program Pre scription Drug Monitoring Program reviewed?: Yes. No concerns identified. Preventative Health and Wellness follow-up . CSSRS Interpretation and Follow Up Plan CSSRS Interpretation and Follow Up Plan CSSRS Screen documented using SF: Yes Risk Disposition from SF: Low - No Follo w Up Plan Required Follow Up Plan: No Follow Up Plan requir ed at this time. Timeframe of Screening: Today Examination Category Sub-Category Detail Notes Category Not es General Examination GENERAL APPEARANCE: pleasant, in n o acute distress PSYCH: speech clear, alert, oriented x4, thought process logical, goal directed, anxious appearing ASAM Physical Assessment Intoxication an d Withdrawal signs Intoxication signs: No signs of intoxication are present during examination. . Withdrawal Signs: No withdrawal signs ar e present during examination.
--- OUTSIDE RECORDS SUMMARY | 2024-10-08 13:49 | XMS_ITS | Patient Health Record ---
Author Organization [facility] Address [address] [place] [address] Care Team Providers Care Tip Finisher Name Role Phone Celeste Coronel Primary Care Provider Russell Laurie Unavailable [phone] Zahra Knight Unavailable [phone] Kiersten Gibson Unavailable [phone] Allergies Allergen (clinical drug ingredient) Drug/Non Drug Allergy documented on EMR Reaction Allergy Type Onset Date Status oseltamivir Tamiflu Unknown Drug Allergy Activ e lamotrigine Lamotrigine rash Drug Allergy Act ann Results Component Value Reference Range Notes Magnesium, Serum* Reviewed date:10/08/2024 11:22:27 AM Interpretation: Performing Lab:[facility] [place], [address] [place] [address], Phone - [phone], Director - PhDMilton Notes/Report: Magnesium 2.1 1.6-2.3 mg/dL Phosphorus, Serum* Reviewed date:10/08/2024 11:22:27 AM Interpretation: Performing Lab:[facility], [address] [place] [address], Phone - [phone], Director - PhDHemanthi Notes/Report: Phosphorus 3.1 3.0-4.3 mg/dL CMP 14 Comprehensive Metabol ic Panel* Reviewed date:10/08/2024 11:22:27 AM Interpretation: Performing Lab:[facility] [place], [address] [facility], Phone - [phone], Director - PhDHemanthi Notes/Report: Glucose 101 70-99 mg/dL BUN 12 6-20 mg/dL Creatinine 0.67 0.57-1.00 mg/dL eGFR 120 >59 mL/min/1.73 BUN/Creatinine Ratio 18 9-23 Sodium 140 134-144 mmol/L Potassium 5.1 3.5-5.2 mmol/L Chloride 102 96-106 mmol/L Carbon Dioxide, Total 23 20-29 mmol/L Calcium 9.7 8.7-10.2 mg/dL Protein, Total 7.3 6.0-8.5 g/dL Albumin 4.7 3.9-4.9 g/dL Globulin, Total 2.6 1.5-4.5 g/dL Bilirubin, Total <0.2 0.0-1.2 mg/dL Alkaline Phosphatase 51 44-121 IU/L AST (SGOT) 20 0-40 IU/L ALT (SGPT) 20 0-32 IU/L CBC With Differential/Platel et* Reviewed date:10/08/2024 11:22:26 AM Interpretation: Performing Lab:[facility] [place], [address] [facility], [place], Phone - [phone], Director - Lise Notes/Report: WBC 8.4 3.4-10.8 x10E3/uL RBC 4.62 3.77-5.28 x10E6/uL Hemoglobin 13.8 11.1-15.9 g/dL Hematocrit 42.5 34.0-46.6 % MCV 92 79-97 fL MCH 29.9 26.6-33.0 pg MCHC 32.5 31.5-35.7 g/dL RDW 12.7 11.7-15.4 % Platelets 381 150-450 x10E3/uL Neutrophils 60 Not Estab. % Lymphs 29 Not Estab. % Monocytes 7 Not Estab. % Eos 3 Not Estab. % Basos 1 Not Estab. % Neutrophils (Absolute) 5.0 1.4-7.0 x10E3/uL Lymphs (Absolute) 2.4 0.7-3.1 x10E3/uL Monocytes(Absolute) 0.6 0.1-0.9 x10E3/uL Eos (Absolute) 0.3 0.0-0.4 x10E3/uL Baso (Absolute) 0.1 0.0-0.2 x10E3/uL Immature Granulocytes 0 Not Estab. % Immature Grans (Abs) 0.0 0.0-0.1 x10E3/uL QuantiFERON-TB Gold Plus (18 4845) Reviewed date:10/08/2024 11:22:26 AM Interpretation: Performing Lab:[facility], [address] [facility], Phone - [phone], Director - Lise Notes/Report: QuantiFERON Incubation Incubation performed. QuantiFERON-TB Gold Plus Negative Negative No response to M tuberculosis antigens detected. Infection with M tuberculosis is unlikely, but high risk individuals should be considered for additional testing (ATS/IDSA/CDC Clinical Practice Guidelines, 2017). The reference range is an Antigen minus Nil result of <0.35 IU/mL. Chemiluminescence immunoassay methodology QuantiFERON Criteria QuantiFERON-TB Gold Plus is a qualitative indirect test for M tuberculosis infection (including disease) and is intended for use in conjunction with risk assessment, radiography, and other medical and diagnostic evaluations. The QuantiFERON-TB Gold Plus result is determined by subtracting the Nil value from either TB antigen (Ag) value. The Mitogen tube serves as a control for the test. QuantiFERON TB1 Ag Value 0.08 QuantiFERON TB2 Ag Value 0.05 QuantiFERON Nil Value 0.04 QuantiFERON Mitogen Value >10.00 Breathalyzer Reviewed date:10/02/2024 01:35:05 PM Interpretation: Performing Lab: Notes/Report: JAIME 0.00 12 Panel Urine Drug Screen Reviewed date:10/02/2024 01:35:55 PM Interpretation: Performing Lab: Notes/Report: THC pos ARMANDO neg MOP (OPI) neg AMP pos MET neg BAR neg BZO pos MDMA neg MTD neg OXY neg PCP neg BUP neg Reason For Referral No Information Medications Medication SIG (Take, Route, Frequency, Duration) [...] days Pt on CRU, please deliver Active Social History Tobacco Use: Social History Observation Description Date Details (start date - stop date) Current some da y smoker NA - NA PRAPARE Question Answer Notes Date Completed/Updated: 10/02/2024 What is your current housing situation? I have h ousing Are you worried about losing your housing? No What is the highest level of school that you have finished? 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 Check all that apply Utilities Has lack of transportation k ept you from medical appointments, meetings, work or from getting things needed for daily living? No How often do you see or talk to people that you care about and feel close to? (For example: talking to friends on the phone, visiting friends or family, going to protestant or club meetings) 3 to 5 times a week How stressed are you? Stress is when someone feels tense, nervous, anxious, or can\t sleep at night because their mind is troubled Very much In the past year have you sp ent more than 2 nights in a row in a custodial, detention, usp center, or juvenile correctional facility? No Are you a refugee? I choose not to answer this q uestion What country are you from? I choose not to answe r this question Do you feel physically and e motionally safe where you currently live? Yes In the past year, have you b een afraid of your partner or ex-partner? 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 confirmed Problem Generalized anxiety disorder (40086678) LUZ (generalized anxiety disorder) (F41.1) Active confirmed Problem Bipolar 2 disorder (73236286) Bipolar 2 disorder (F31.81) Active confirmed Problem Obesity (289208779) Obesity (BMI 30-39.9) (E66.9) Active confirmed Problem Opioid use disorder (5549928654) Opioid use disorder (F11.99) Active confirmed Vital Signs Heart Rate 88 /min 10/04/2024 Temperature 98.1 degrees Fahrenheit 10/04/2024 Respiratory Rate 16 /min 10/04/2024 Blood pressure diastolic 76 mm Hg 10/04/2024 Oximetry 99 % 10/04/2024 Height 68 in 10/04/2024 Blood pressure systolic 118 mm Hg 10/04/2024 Weight 242.2 lbs 10/04/2024 BMI 36.82 kg/m2 10/04/2024 Encounters Encounter Location Date Provider Diagnosis [facility] [address] [place] [address] 10/02/2024 Celeste Coronel Adult general medical exam Z00.00 ; Opioid use disorder F11.99 and Over weight E66.3 [facility] [place] [address] 10/02/2024 Kiersten Gibson Opioid use disorder F11.[address] [address] 10/03/2024 Zahra Knight Bipolar 2 disorder F31.81 ; Insomnia G47.00 ; LUZ (generalized anxiety disorder) F41.1 and ADHD (attention deficit hyperactivity disorder), inattentive type F90.0 [facility] [place] [address] 10/04/2024 Laurie Wells Opioid use disorder F11.99 and Obesity (BMI 30-39.9) E66.9 [place] [address] [place] [address] 10/04/2024 Celeste Coronel [address] [place] [address] 10/08/2024 Celeste Coronel Assessments Encounter Date Diagnosis (ICD Code) Assessment Notes Treatment Notes Treatment Clinical Notes Section Notes 10/02/2024 Adult general medical exam (ICD-10 - Z00.00) 10/02/2024 Opioid use disorder (ICD-10 - F11.99) 10/02/2024 Opioid use disorder (ICD-10 - F11.99) 10/03/2024 Insomnia (ICD-10 - G47.00) 10/03/2024 Bipolar 2 disorder (ICD-10 - F31.81) 10/04/2024 Obesity (BMI 30-39.9) (ICD-10 - E66.9) 10/04/2024 Opioid use disorder (ICD-10 - F11.99) Client provided info on MAR options. Selected to initiate buprenorphine for treatment of OUD. 10/03/2024 LUZ (generalized anxiety disorder) (ICD-10 - F41.1) 10/02/2024 Over weight (ICD-10 - E66.3) 10/03/2024 ADHD (attention deficit hyperactivity disorder), inattentive type (ICD-10 - F90.0) 10/02/2024 Other Continue treatment as recommended by [facility] staff. Encouraged patient to obtain routine medical care with patient's own primary care provider or establish as a patient at [facility] if no current primary care provider. 10/02/2024 Other Clinician met w ith client to assess needs for residential services. Clinician gathered information regarding historical presentation of mental health and substance use symptoms including withdrawal, HIV Risk assessment, psychiatric hospitalization history and presenting concern. Clinician conducted PHQ9 and CSSRS assessments as well as social drivers of health screening for the purposes of identifying additional service needs. 10/03/2024 Other May self-administer medications or be administered own oral medications per [place] protocols. Provided informed consent with understanding of side effects, adverse effects, risks and benefits as well as alternative treatments as previously discussed and with the above recommended medications & other aspects of the treatment program. Agrees to return sooner if symptoms worsen or suicidal or homicidal ideations occur. Unable to complete full AIMS due to nature of appt, denies any irregular muscle movements or facial tics; no irregular movements observed during Zoom appt. Plan: -Continue Adderall 30 mg BID *30 day filled 09/20/24 -Increase Lurasidone to 40 mg once daily w/ food -Continue Hydroxyzine 25 mg q4hrs PRN -Follow up: 1 week [] Hard Rx handed to patient [] Rx phoned into pharmacy [x] Rx faxed/e-prescribed into pharmacy [x] PDMP Reviewed [] [facility] Reviewed Encouraged by Zahra Knight PMHNP-BC to: [x] consider utilizing therapist/counselor /health and social care teacher/psychologist , referral given [x] continue with therapist/counselor /health and social care teacher/psychologist Psychoeducation: -Treatment options discussed in detail with patient/guardian verbalizing understanding of treatment rationales. -Side effects and benefits of all medications prescribed discussed at length between psychiatric prescribing provider and patient/guardian along with the risks associated of hful-kj-leuw interactions, including but not limited to prescription medications, OTC medications, vitamins, minerals and herbal supplements. -Patient/Guardian and provider dialogue showcased verbalized understanding from patient on rationales of medication risk vs benefits. -Information with neurobiology of presenting neurotransmitter disorder, mood stability, sleep hygiene and 7-8 hours of uninterrupted sleep per night with wakeful and refreshed awakening and day long alertness discussed. -Reduction of stress and anxiety to aid in focus and concentration discussed, again, with patient/guardian physically nodding, voicing understanding, and engaged in treatment plan with Zahra Knight [facility]. -Perceiving complete understanding of rationale by patient/guardian and willingness to adhere to formulated plan of care by prescriber with patient/guardian buy-in, willingness to participate actively in plan of care and willing to take charge of own care. -Although geared for female patients, all patients/guardians are informed by prescribing provider of risks of medications that could potentially be taken by female/women within their lower [place] of influence and that women who use medicine during have a higher chance of having a baby with defects. -Patient/Guardian denies being and/or knowing of women who are at present and denies wanting to become in the foreseeable future, 0-6 months from now. -Patient/Guardian again informed of the risk of pharmaceutical medications consumed during and how there are potential negative effects on the developing fetus. -Patient/Guardian verbalizes understanding of rationale and physically nods head in agreement that if a should occur, to consult with provider, SIENE MAKER and/or Nurse Gis Manager to determine if prescribed medications should or should not be continued. -Instructions regarding both the medical/pharmacolog ical and non-pharmacologic aspects of the treatments employed were given, and the patient/guardian seemed to understand this. Risks and benefits of treatment, and of non-treatment, were also discussed. The patient/guardian understands the more frequent side effects associated with the medications. -The use of psychotherapy was addressed today and will continue on an as needed basis for the foreseeable future. The choice is, of course, ultimately left to the patient/guardian. -Patient/Guardian was encouraged to make a follow-up appointment for the next visit. -Additional treatment was discussed and has been addressed on an ongoing basis within the context of this patient's illness, resources, progress, and other appropriate factors. Being compliant with a regular exercise routine, consistent medication use, ongoing psychotherapy, eating and sleeping well, as well as the importance of handling stress, was discussed. Medical Hx: -Vyvanse, Fluoxetine, Trazodone, Hydroxyzine (did not help). -Lamotrigine (caused a rash at 100 mg). 10/04/2024 Other Discussed medication side effects, adverse effects, risks, benefits, as well as interactions. Encouraged non-use of opioids. Has naloxone. Recommended participation in recovery groups and/or counseling services. May contact office with questions or concerns. Plan Of Treatment Future Test Test Name Order Date Test, Urine 10/02/2024 Next Appt Details Provider Name:Zahra perdomo, 10/10/2024 09:00:00 AM, [address] [place] [address], [address], Provider Name:Laurie vidales, 10/11/2024 11:00:00 AM, [address], [place], [address], Insurance Providers Payer Name Payer Address Payer Phone Subscriber Number Group Number Insured Name Patient Relationship to Insured Coverage Start Date Coverage End Date MEDICAID [address] [place] [phone] [id number] Jose Britt Self - patient is the insured 5 MEDICAID [employer] [address] [place] [place] [address] [id number] Jose Britt Self - patient is the insured 5 Medical (General) History Medical History History ICD Code bipolar disorder type 2 attention deficit hyperactivity disorder depression Anxiety disorder Arthritis endometriosis Surgical History Surgery Date(Month/Year) [facility] 2011 section 2020 tonsillectomy 2007 Dn 2013 Introscope Hospitalization History Reason Date(Month/Year)
[2024-10-08] MEDS: KETOROLAC (*BKC) 60 MG/2 ML VIAL IM (13:51)
[2024-10-08 15:34] VITALS: BP 142/77; PULSE 84; RESP 16; O2SAT 100
--- NOTE | 2024-10-08 15:34 | PC.NURSE ---
Report called to Suzi KEN at [facility]. All questions answered. Pt. ambulatory at time of d/c. Likely to send transportation for pt.
--- OUTSIDE RECORDS SUMMARY | 2024-10-08 15:35 | XMS_ITS | Clinical Summary ---
Author Organization [facility] Address [address] [place] [address] Care Team Providers Care Ship Captain Name Role Phone None, Provider Primary Care [...] CDT - 09/21/2024 10:37 PM CDT Emergency [facility] Emergency Room [address] [place] [address] Eitan Cordon MD Fatigue Discharge Disposition: Home [...] ORDERABLES Final Result [facility] [address] [place] [address], [place] [phone] * INFLUENZA A & B (09/21/2024 8:21 [...] ORDERABLES Final Result [facility] [address] [place] [address], [place] [phone] from Last 3 Months Insurance MEDICAID [place] Care Teams Ship Captain Relationship Specialty Start Date End Date None, Provider, PCP - General 03/02/22
--- OUTSIDE RECORDS SUMMARY | 2024-10-08 15:36 | XMS_ITS | Clinical Summary ---
Author Organization [facility] Address [address] [place] [address] Care Team Providers Care Asbestos Shingle Inspector Name Role Phone Danny Caal MD Primary Care Provider [phone] Allergies Active Allergy Reactions Criticality Noted Date [...] on file Legal Sex Female 12:48 AM MOBILE SECURITY ARCHITECT Gender Identity Female 05/28/2020 9:09 AM MOBILE SECURITY ARCHITECT Sexual Orientation Straight 05/28/2020 9: 09 AM MOBILE SECURITY ARCHITECT Obstetrics History Last Filed Vital Signs Vital [...] cm (5' 8 ) 05/05/2021 9:44 AM MOBILE SECURITY ARCHITECT Body Mass Index 37.71 05/05/2021 9:44 AM MOBILE SECURITY ARCHITECT Plan of Treatment Health Maintenance Due Date [...] patient's age to complete this topic Insurance [facility] Care Teams Asbestos Shingle Inspector Relationship Specialty Start Date End Date Danny Caal MD PCP - General Family Medicine 05/08/19
--- OUTSIDE RECORDS SUMMARY | 2024-10-08 15:36 | XMS_ITS | Clinical Summary ---
Author Organization [facility] Address [address] [place] [address] Care Team Providers Care Roof Promenade Tile Setter Name Role Phone Danny Caal MD Primary Care Provider [phone] Source Comments [facility],non-owned Affiliates and Associated Physician Practices is amultiple site organization consisting of ambulatory clinics and hospital sitesin [place], [place], [place] and [place]. This disclosure is being madepursuant to the Care Everywhere program and may not contain all information available regarding this patient. Last updated 18.[facility] Allergies Active Allergy Reactions Criticality Noted Date [...] 12/25/2020 12/25/2020 04/08/2021 Overview (02/05/2021): 12/25/2020 Chelsey Bar was screened for depression using the [place] Depression Scale (EPDS) at her [facility] initial evaluation on 12/25/2020. Her initial score at baseline was 9. Based off of her score of 9, Chelsey does not warrant follow up. Patient will continue to be screened throughout , at intervals no closer than two weeks, for continued surveillance and early identification of depression until delivery. Patient reports mental health history. Diagnoses include depression and anxiety. 02/05/2021-EPDS follow up=6 [facility]: abnormality in pr egnancy, mono/di twins 12/19/2020 04/08/2021 Overview (04/03/2021): Images from the original note were not included. [facility] PATIENT--PLEASE CALL [phone] (ex 2) IF TRIAGED OR ADMITTED Care Provider: Dr. Micaela Chacon ([facility] [place]) [facility] consultants involved: Nurse coordinators: Jorge Oconnor/Jeni Naranjo; [facility]-Dr. Smyth; Pediatric Cardiology-Dr. Lynch Diagnosis: MCDA twins; Normal echocardiograms for both twins; Small hyperechoic area noted in the LUQ of twin A (non-presenting twin)-unclear clinical significance Planned surveillance: Routine OB care; Ultrasound for TTTS screening every [address] [facility]; Weekly testing for BPP/NST starting at 32 weeks; Released from [facility] after visit on 02/05/2021 Delivery location: With primary OB at hospital of choice ([facility]) Delivery mode: Per usual OB indications Desired Delivery GA: 37 weeks follow up: Abdominal ultrasound of twin A Director Operations Broadcast: Dr. Chetna Hess (letter faxed 01.45) Autopsy indicated: Genetics note: Shoe Cutter Concerns: 12/25/2020-Patient with history of anxiety and [...] patient's age to complete this topic Insurance [facility] MEDICAID - OUT OF [facility] Care Teams Roof Promenade Tile Setter Relationship Specialty Start Date End Date Danny Caal MD [address] [place] [address] PCP - General 04/12/21
--- OUTSIDE RECORDS SUMMARY | 2024-10-08 15:36 | XMS_ITS | Clinical Summary ---
Author Organization [facility] Address [address] [place] [address] Care Team Providers Care Product Communications Manager Name Role Phone Unavailable Primary Care Provider [...] Britt was screened for depression using the [place] Depression Scale (EPDS) at her [facility] initial evaluation on 12/25/2020. Her initial [...] from the original note were not included. [facility] PATIENT--PLEASE CALL [phone] (ex 2) IF TRIAGED OR ADMITTED Care Provider: Dr. Micaela Chacon ([facility] [place]) [facility] consultants involved: Nurse coordinators: Jorge Oconnro/Jeni Naranjo; [facility]-Dr. Smyth; Pediatric Cardiology-Dr. Lynch Diagnosis: MCDA twins Planned surveillance: Routine OB care; Ultrasound for TTTS screening every 2 weeks at [facility]; Return to [facility] 8.19 for ultrasound and echocardiograms Delivery location: TBD Delivery mode: Per usual OB indications Desired Delivery GA: TBD, but no later than 37 weeks follow up: Table Games Dealer: Autopsy indicated: Genetics note: Supervisor Contingents Concerns: 12/25/2020-Patient with history of anxiety and [...] Comments Blood Pressure 118/75 05/20/2021 11:00 AM SUPERVISOR DELIVERY DEPARTMENT Pulse 89 05/20/2021 11:00 AM SUPERVISOR DELIVERY DEPARTMENT Temperature 36 C (96.8 F) 05/20/2021 11:00 AM SUPERVISOR DELIVERY DEPARTMENT Respiratory Rate - - Oxygen Saturation - [...] PANORAMIC RADIOGRAPHIC IMAGE Routine 07/25/2019 2:00 AM SUPERVISOR DELIVERY DEPARTMENT ADJUNCTIVE PRE-DIAGNOSTIC TEST THAT AIDS IN DETECTION OF MUCOSAL ABNORMALITIES Routine 03/27/2019 2:00 AM CDT INTRAORAL - COMPREHENSIVE SERIES OF RADIOGRAPHIC IMAGES Routine 03/27/2019 2:00 AM CDT from Last 3 Months or Most Recently Relevant to Health Maintenance Insurance [facility] PPO
--- OUTSIDE RECORDS SUMMARY | 2024-10-08 15:36 | XMS_ITS | Encounter Summary ---
Author Organization [facility] [place] Address [address] [place] [address] Care Team Providers Care Laminator Preforms Name Role Phone Unavailable Primary Care Provider Unavailabl e Prior Encounters Date Type Department Care Team Description 02/01/2022 1:15 PM CDT Office Visit [facility] [address] [place] [address] Layne Banda [facility] 11/19/2021 9:00 AM CDT Office Visit [facility] [address] [place] [address] Gavino Munoz DDS 11/19/2021 9:00 AM CDT Office Visit [facility] [address] [place] [address] Layne Banda, [facility] 05/20/2021 Travel 05/20/2021 11:00 AM CLASSROOM MONITOR Office Visit [facility] [address] [place] [address] Christiane Nguyễn, DMD 05/20/2021 11:00 AM CLASSROOM MONITOR Office Visit [facility] [address] [place] [address] Layne Banda [facility] 01/27/2021 Travel 01/27/2021 3:30 PM CDT Office Visit [facility] [address] [place] [address] Christiane Nguyễn, DMD 07/09/2019 Converted 13x Documents [facility] [address] [place] [address] <No scans attached> 07/09/2019 Converted CPS Chart Documents [facility] [address] [place] [id number] <No scans attached> 07/09/2019 Converted CPS Chart Documents [facility] [address] [place] [address] <No scans attached> 07/09/2019 Converted 13x Documents [facility] [address] [place] [address] <No scans attached> Last Filed Vital Signs Vital Sign Reading Time Taken Comments Blood Pressure 118/75 05/20/2021 11:00 AM CLASSROOM MONITOR Pulse 89 05/20/2021 11:00 AM CLASSROOM MONITOR Temperature 36 C (96.8 F) 05/20/2021 11:00 AM CLASSROOM MONITOR Respiratory Rate - - Oxygen Saturation - [...] FOUR RADIOGRAPHIC IMAGES Routine 05/20/2021 11:00 AM CLASSROOM MONITOR PERIODIC ORAL EVALUATION - ESTABLISHED PATIENT Routine 05/20/2021 11:00 AM CLASSROOM MONITOR TOPICAL APPLICATION OF FLUORIDE VARNISH Routine 05/20/2021 11:00 AM CLASSROOM MONITOR ORAL HYGIENE INSTRUCTIONS Routine 2020 11:00 AM CLASSROOM MONITOR PROPHYLAXIS - ADULT Routine 05/20/2021 1 1:00 AM CLASSROOM MONITOR ORAL-B ELEC BRUSH Routine 01/27/2021 3:3 0 [...] COMPOSITE FILLING Routine 04/24/20 20 2:00 AM CLASSROOM MONITOR 9 ML COMPOSITE FILLING Routine 0 2:00 AM CLASSROOM MONITOR 8 ML COMPOSITE FILLING Routine 0 2:00 AM CLASSROOM MONITOR ORAL HYGIENE INSTRUCTIONS Routine 2019 2:00 AM CDT TOPICAL APPLICATION OF FLUORIDE VARNISH Routine 04/04/2020 2:00 AM CDT PROPHYLAXIS - ADULT Routine 04/04/2020 2 :00 AM CDT COMPREHENSIVE ORAL EVALUATION - NEW OR ESTABLISHED PATIENT Routine 04/04/2020 2:00 AM CDT OFFICE VISIT FOR OBSERVATION (DURING REGULARLY SCHEDULED HOURS) - NO OTHER SERVICES PERFORMED Routine 07/25/2019 2:00 AM CLASSROOM MONITOR PANORAMIC RADIOGRAPHIC IMAGE Routine 07/25/2019 2:00 AM CLASSROOM MONITOR COMPREHENSIVE ORAL EVALUATION - NEW OR ESTABLISHED [...] CDT Visit Diagnoses Not on file Insurance [employer] P[employer]
--- OUTSIDE RECORDS SUMMARY | 2024-10-08 15:36 | XMS_ITS ---
Author Organization [facility] Address [address] [place] [address] Care Team Providers Care Stack Supervisor Name Role Phone Celeste Coronel Primary Care Provider [phone] REASON FOR VISIT Lab results Encounters Encounter Location Date Provider Diagnosis [address] [place] [address] 10/08/2024 Celeste Coronel Plan Of Treatment Next Appt Details Provider Name:Zahra perdomo, 10/10/2024 09:00:00 AM, [address], [address], Provider Name:Laurie vidales, 10/11/2024 11:00:00 AM, [address], [place], [address], Progress Notes * YOSVANY AnetteOB: 4 (29 yo F)Acc No.[id number]:10/08/2024 UNLOCKED PROGRESS NOTE Patient: Jose CRAIG :1995 A ge:29 Y S ex:Female Address:[address] [place], [address] * * Date:
--- OUTSIDE RECORDS SUMMARY | 2024-10-08 15:36 | XMS_ITS | Referral Summary ---
Author Organization [facility] Address [address] [place] [address] Care Team Providers Care Supervisor Tree Trimming Name Role Phone Danny Caal MD Primary Care Provider [phone] Allergies Active Allergy Reactions Criticality Noted Date [...] on file Legal Sex Female 12:48 AM CONTOUR SANDER Gender Identity Female 05/28/2020 9:09 AM CONTOUR SANDER Sexual Orientation Straight 05/28/2020 9: 09 AM CONTOUR SANDER Last Filed Vital Signs Vital Sign Reading [...] cm (5' 8 ) 05/05/2021 9:44 AM CONTOUR SANDER Body Mass Index 37.71 05/05/2021 9:44 AM CONTOUR SANDER Plan of Treatment Not on file Insurance [facility] Care Teams Supervisor Tree Trimming Relationship Specialty Start Date End Date Danny Caal MD PCP - General Family Medicine 05/08/19
== END 2024-10-08 15:37 | disposition home or self-care (01) ==
PROVIDERS: Emergency Provider General Practice
DX: S99.921A Unspecified injury of right foot, initial encounter (principal); M19.90 Unspecified osteoarthritis, unspecified site; F90.9 Attention-deficit hyperactivity disorder, unspecified type; Z79.899 Other long term (current) drug therapy; W18.30XA Fall on same level, unspecified, initial encounter; Y93.68 Activity, volleyball (beach) (court)
CPT/HCPCS: 73630; 96372; 99283; J1885